=== PATIENT | male | born 1940 | race Caucasian/White ===

== ENCOUNTER 2018-01-03 13:32 | Inpatient (IN) | payer MEDICARE, SELFPAY ==
[2018-01-03] VITALS (30 sets, daily range): BP systolic 68–129; BP diastolic 51–81; PULSE 104–119; RESP 14–26; TEMP 36.2–36.9; O2SAT 63–100; BMI 22.5; BMI 23.2
--- NOTE | 2018-01-03 14:01 | RAD_ITS ---
STUDY: X-RAY CHEST REASON FOR EXAM: Male, 77 years old. Increasing shortness of breath. TECHNIQUE: Single AP portable view of the chest. COMPARISON: Comparison is made with prior study dated March 04, 2017. FINDINGS: EKG electrodes are seen. Since prior study, there has been progressive increased interstitial markings at both lung bases worse on the right side with areas of confluence. This may represent progressive interstitial fibrosis. Superimposed right lower lobe infiltrate cannot be excluded. Small right pleural effusion. The previously seen spiculated nodule in the medial aspect of the right upper lobe is not well seen at this time. Normal size heart. Normal mediastinum and renetta. Normal visualized pulmonary arteries. There is atherosclerotic calcification of the aortic arch with tortuosity. Normal visualized thoracic spine. Normal visualized ribs, clavicles, and shoulders. There is no demonstrated abnormality of the visualized soft tissue structures of the upper abdomen. RAD/Chest 1 View (Portable) IMPRESSION: Progressive increased markings at the lung bases worse on the right side with blunting of the right costophrenic angle. This may represent either progressive scarring or superimposed infiltration at the right lung base. Electronically Signed: Donnie Jeffrey MD at 14:43 EDT Tel [phone], Service support ,
--- NOTE | 2018-01-03 14:01 | EKG12_ITS ---
Test Reason : SOB Blood Pressure : / mmHG Vent. Rate : 114 BPM Atrial Rate : 114 BPM P-R Int : 130 ms QRS Dur : 088 ms QT Int : 332 ms P-R-T Axes : 000 129 -22 degrees QTc Int : 457 ms Poor data quality, interpretation may be adversely affected Sinus tachycardia Nonspecific ST and T wave abnormality Abnormal ECG Confirmed by NATALIA MCRAE, NALINI ([id number]), editor farm journal MIGUEL A FOLEY ([id number]) on 01/06/2018 2:02:40 PM Referred By: SCAR Confirmed By:NALINI FISHER MD
[2018-01-03] MEDS: MethylPREDNISolone 125 MG/2 ML Vial IV (14:13)
[2018-01-03 14:26] LABS: Absolute Lymphocyte Count 0.83 X10^3/ul (0.83-4.51); Absolute Neutrophil Count 6.2 X10^3/uL (2.0-7.7); Basophil# 0.04 X10^3/uL; Basophil% 0.5 % (0-1); Eosinophil# 0.08 X10^3/uL; Hematocrit 47.6 % (40-54); Hemoglobin 14.9 g/dl (13.0-16.5); Lymphocyte # 0.83 X10^3/ul (4.0); Lymphocyte % 10.6 % (19-41); Mean Corp Hgb Conc 31.3 g/gl (32-36); Mean Corpuscular Hgb 20.3 pg (27.0-32.0); Mean Corpuscular Volume 64.9 fL (80-94); Monocyte# 0.65 X10^3/uL; Monocyte% 8.3 % (0-10); Neutrophil # 6.22 X10^3/uL (2.7-7.7); Neutrophil % 79.5 % (47-70); Platelet Count 246 K/mm3 (150-450); RBC Distribution Width CV 21.8 % (11.6-14.6); RBC Distribution Width SD 48.3 fl (35.1-43.9); White Blood Count 7.8 K/mm3 (4.4-11.0)
[2018-01-03 14:29] LABS: Differential Indicated SCAN CRITERIA MET; POSITIVE COUNT NO; POSITIVE DIFFERENTIAL NO; POSITIVE MORPHOLOGY YES; Red Blood Count 7.33 M/mm3 (4.6-6.2)
[2018-01-03 14:37] LABS: Anion Gap 11 (5-15); BUN 41 mg/dL (7-18); BUN/Creat Ratio 27.3 RATIO (10-20); Chloride 101 mmol/L (98-107); EST Glomerular Filtration Rate 48 mL/min (>60); Est Glom Filt Rate - Afr Amer 59 mL/min (>60); Estimated Creatinine Clearance 42.86 ml/min; Glucose 105 mg/dL (74-106); Potassium 4.3 mmol/L (3.5-5.1); Sodium Level 134 mmol/L (136-145)
[2018-01-03] MEDS: Ipratropium/Albuterol Sulfate 3 ML AMPUL.NEB INHALATION ×2 (14:44→19:30)
[2018-01-03 14:45] LABS: Lactic Acid 2.7 mmol/L (0.4-2.0)
--- NOTE | 2018-01-03 14:46 | ED.RN ---
LACTIC ACID 2.[address] LAB[address] DR ABBOTT AWARE
--- NOTE | 2018-01-03 14:49 | CT_ITS ---
STUDY: CT CHEST WITHOUT CONTRAST REASON FOR EXAM: Male, 77 years old. History of lung cancer. Increasing shortness of breath. RADIATION DOSAGE (If Supplied By Facility): CTDIvol = ( 11.69 ) mGy, DLP = ( 458.64 ) mGycm TECHNIQUE: Transaxial imaging was performed without the administration of intravenous contrast material. Multiplanar coronal and sagittal images were reformatted. Individualized dose optimization techniques were used for this CT. COMPARISON: Comparison is made with prior study dated November 22, 2016. FINDINGS: Diffuse emphysematous changes worse in the right lung and in the right upper lobe with multiple bullous formation. Small right pleural effusion. Increased markings at the lung bases suggestive of bibasilar scarring and/or atelectasis. The previously seen nodular density in the posteromedial segment of the right upper lobe is not as well seen due to the presence of the pleural effusion. Air bronchograms are seen within it. This may represent a focal area of rounded atelectasis. There are calcifications of the coronary arteries. There are multiple small lymph nodes within the mediastinum, which are normal in size and morphology most compatible with reactive lymph hyperplasia. Normal hilar regions. Normal unenhanced pulmonary arteries. There is atherosclerotic calcification of the aortic arch with tortuosity and elongation of the aortic arch and descending thoracic aorta. There are multi-level degenerative changes of the thoracic spine. There is no demonstrated abnormality of the visualized upper abdomen. CT/Chest without Contrast IMPRESSION: Marked degree of emphysematous changes. Small right pleural effusion with underlying bibasilar atelectasis and/or scarring worse on the left side. Electronically Signed: Donnie Jeffrey MD at 15:45 EDT Tel [phone], Service support ,
[2018-01-03 14:56] LABS: BNP,B-Type NATRIURETIC PEPTIDE 119.8 pg/mL (0-100)
[2018-01-03 15:40] LABS: Bacteria 0 SEEN /hpf (None Seen); Mucous, Urine 0 SEEN /hpf (<or=2+); Squamous Epithelial Cells - UA 0 SEEN /hpf (0-5); White Blood Cells 0 SEEN /hpf (0-5)
[2018-01-03 15:44] LABS: Color, Urine Yellow (Yellow); Glucose, Dipstick Normal (Normal); Ketone-Dipstick Negative (Negative); Leukocyte Esterase-Dipstick Negative /ul (Negative); Nitrite-Dipstick Negative (Negative); Occult Blood-Urine 10 /ul (Negative); Protein-Dipstick 30 mg/dl (Negative); Specific Gravity, Urine 1.015 (1.002-1.030); Urine Bilirubin Dipstick Negative (Negative); Urine Clarity Clear (Clear); Urine Urobilinogen Normal (Normal)
--- NOTE | 2018-01-03 15:45 | ED.RN ---
PER PT'S NORMAL BP'S RANGE FROM SBP 60-90.
[2018-01-03 16:00] LABS: Red Blood Cells-Urine 0-5 SEEN /hpf (0-5)
[2018-01-03] MEDS: Furosemide 40 MG/4 ML Vial IV (16:16)
--- NOTE | 2018-01-03 16:50 | ED.RN ---
PER PT'S SPO2 HAS BEEN RANGING ANYWHERE FROM 60-85% ON 6L O2 AT HOME.
--- NOTE | 2018-01-03 16:52 | ED.VISSUMM ---
- ER Visit Summary Date of Service: 01/03/18 Chief Complaint: Shortness of breath History of Present Illness: The patient is a [address] Sameer Couch III, Dr. 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 When asked that this worsens he reports that he is here today because his ankle swelling is worsened. He is on 20 mg of Lasix a day. There has been no change in his. He denies any fever, chills, chest pain, cough, or other complaints. Physical Examination: Vitals: 97.2, 129/80, 115, 26, 63% on 6 L nasal cannula which is his home O2, 83% on a nonrebreather, and 93% on BiPAP. General: Well-nourished and well-developed. Head: Normocephalic atraumatic. Neck: Supple, no lymphadenopathy. No JVD. Nontender. Cardiovascular: Tachycardic regular rhythm. No murmurs. Respiratory: Moderate respiratory distress. Clear to auscultation bilaterally. Abdominal: Soft, nontender, nondistended, normal bowel sounds. No guarding, rebound, or peritoneal signs. Back: Nontender. Extremities: Nontender, 2+ pitting edema of his lower extremities bilaterally. Skin: Normal color, no rash. Neurologic: Alert and oriented ?3. Cranial nerves II through XII are intact. Normal strength and sensation. Psych: Normal affect. Test Results: EKG is sinus tach at 114 with artifact and nonspecific changes. Troponin 0 0.25. UA is more for blood. Chem-7 is more for sodium 134, BUN 41, creatinine 1.5. Lactic acid is 2.7. CBC is more for 7 neutrophils 80 leukocytes of 11. Chest x-ray shows increased interstitial markings in the lung bases right greater than left with areas of confluence. Question interstitial fibrosis, but not able to rule out infiltrate. Because of the CT the chest without contrast was obtained. This shows a small right pleural effusion with bibasilar atelectasis/scarring left greater than right. Emergency Department Course and Treatment: Patient was placed on BiPAP and his pulse ox increased into the low 90s. He was given albuterol and Atrovent aerosols despite his clear lungs as he does has a history of COPD. Is given a dose of Solu-Medrol and Lasix IV. I specifically discussed the patient his wishes concerning intubation. He does not want this performed. It is documented in February 2017 that is DNR Comfort Care arrest and this is consistent with the patient's wishes now. I do not feel the patient is septic and I think that his elevated lactic acid is likely from his hypoxia. I did not give him his IV fluids as I think this would actually worsen his outcome. I also feel that his indeterminate troponin is likely demand ischemia from his hypoxia rather than indicative of coronary artery disease. Treatment Plan: Patient was discussed with Dr. Cameron as well as Dr. Morales. He will be admitted to the hospital for further evaluation and treatment. Disposition: Admitted in critical condition Impression: 1. Acute on chronic respiratory failure. 2. Severe pulmonary hypertension. 3. COPD. 4. DNR Comfort Care arrest. 5. Indeterminate troponin. 6. Critical care time 30 minutes. This note was generated with [employer] dictation software. It may contain incorrect words, spelling, and punctuation that were not noted in review of the chart prior to signing ED Disposition - Plan for ED Patient: Chief Complaint: Shortness of Breath Referrals: Sameer Couch III, MD [Primary Care Provider] -
--- NOTE | 2018-01-03 16:57 | ED.DCSUM_ITS ---
- ER Visit Summary Date of Service: 01/03/18 Chief Complaint: Shortness of breath History of Present Illness: The patient is a [address] Sameer Couch III, Dr. 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 When asked that this worsens he reports that he is here today because his ankle swelling is worsened. He is on 20 mg of Lasix a day. There has been no change in his. He denies any fever, chills, chest pain, cough, or other complaints. Physical Examination: Vitals: 97.2, 129/80, 115, 26, 63% on 6 L nasal cannula which is his home O2, 83 % on a nonrebreather, and 93% on BiPAP. General: Well-nourished and well-developed. Head: Normocephalic atraumatic. Neck: Supple, no lymphadenopathy. No JVD. Nontender. Cardiovascular: Tachycardic regular rhythm. No murmurs. Respiratory: Moderate respiratory distress. Clear to auscultation bilaterally. Abdominal: Soft, nontender, nondistended, normal bowel sounds. No guarding, rebound, or peritoneal signs. Back: Nontender. Extremities: Nontender, 2+ pitting edema of his lower extremities bilaterally. Skin: Normal color, no rash. Neurologic: Alert and oriented ?3. Cranial nerves II through XII are intact. Normal strength and sensation. Psych: Normal affect. Test Results: EKG is sinus tach at 114 with artifact and nonspecific changes. Troponin 0 0.25. UA is more for blood. Chem-7 is more for sodium 134, BUN 41, creatinine 1.5. Lactic acid is 2.7. CBC is more for 7 neutrophils 80 leukocytes of 11. Chest x-ray shows increased interstitial markings in the lung bases right greater than left with areas of confluence. Question interstitial fibrosis, but not able to rule out infiltrate. Because of the CT the chest without contrast was obtained. This shows a small right pleural effusion with bibasilar atelectasis/scarring left greater than right. Emergency Department Course and Treatment: Patient was placed on BiPAP and his pulse ox increased into the low 90s. He was given albuterol and Atrovent aerosols despite his clear lungs as he does has a history of COPD. Is given a dose of Solu-Medrol and Lasix IV. I specifically discussed the patient his wishes concerning intubation. He does not want this performed. It is documented in February 2017 that is DNR Comfort Care arrest and this is consistent with the patient's wishes now. I do not feel the patient is septic and I think that his elevated lactic acid is likely from his hypoxia. I did not give him his IV fluids as I think this would actually worsen his outcome. I also feel that his indeterminate troponin is likely demand ischemia from his hypoxia rather than indicative of coronary artery disease. Treatment Plan: Patient was discussed with Dr. Cameron as well as Dr. Morales. He will be admitted to the hospital for further evaluation and treatment. Disposition: Admitted in critical condition Impression: 1. Acute on chronic respiratory failure. 2. Severe pulmonary hypertension. 3. COPD. 4. DNR Comfort Care arrest. 5. Indeterminate troponin. 6. Critical care time 30 minutes. This note was generated with [employer] dictation software. It may contain incorrect words, spelling, and punctuation that were not noted in review of the chart prior to signing ED Disposition - Plan for ED Patient: Chief Complaint: Shortness of Breath Referrals: Sameer Couch III, MD [Primary Care Provider] -
--- NOTE | 2018-01-03 17:04 | PCM.HP.STD ---
History of Present Illness Date of Admission: 01/03/18 Chief Complaint: Shortness of breath The patient is a 77 year old M advanced COPD, chronic respiratory failure on home oxygen at 6 L/min, pulmonary hypertension and chronic cor pulmonale resented to the emergency room due to progressive leg edema and shortness of breath. In the emergency room he was noted to have pulse oximetry in the 80s 6 L of oxygen, he was placed on BiPAP and given IV Lasix but he became hypotensive with systolic blood pressure in the 90s. Chest x-ray done in the emergency room showed marked degree of emphysematous changes. Small right pleural effusion with underlying bibasilar atelectasis with no evidence of pneumonia. He denies any fever, chills, chest pain, cough nausea vomiting or abdominal pain. We are admitting him to the hospital for further management. Past Medical History Past Medical History (Chronic Problems): Chronic Problems (Last Reviewed 10/18/17 @ 10:07 by Yamilet Reyes) Respiratory failure (Chronic) Currently requiring 6 L of supplemental oxygen at all times, on a noninvasive ventilator for sleep Stage 1 mild COPD by GOLD classification (Chronic) FEV1 91% of predicted Depression (Chronic) Diabetes (Chronic) Lung cancer (Chronic) Pulmonary hypertension (Chronic) PASP greater than 90 mmHg Diastolic heart failure (Chronic) Sleep-related breathing disorder (Chronic) Solitary lung nodule (Chronic) Right ventricular diastolic dysfunction (Chronic) Patent foramen ovale (Chronic) PND (paroxysmal nocturnal dyspnea) (Chronic) Moderate to severe pulmonary hypertension (Chronic) Colon cancer (Chronic) COPD (chronic obstructive pulmonary disease) (Chronic) Hypertension (Chronic) Allergies No Known Allergies Allergy (Verified 10/18/17 10:07) Home Medications: Ambulatory Orders Medication Instructions Recorded Albuterol IH (ProAir) [Proair Hfa] 1 - 2 puff INHALATION Q4H PRN PRN 03/04/17 Budesonide/Formoterol Fumarate 2 puff IH BID 03/04/17 [Symbicort 160-4.5 Mcg Inhaler] Calcium Carbonate/Vitamin D3 1 ea PO DAILY 03/04/17 [Calcium 600-Vit D3 800 Tab] Cinnamon Bark [Cinnamon] 500 mg PO BID 03/04/17 Furosemide [Lasix] 20 mg PO DAILY 03/04/17 Ipratropium/Albuterol Sulfate 3 ml INHALATION Q6HWA.RT 03/04/17 [Duoneb] Lisinopril [Zestril] 5 mg PO DAILY 03/04/17 Multivit-Min/FA/Lycopen/Lutein 1 ea PO DAILY 03/04/17 [Centrum Silver Men Tablet] Mv-Min/FA/Vit K/Lycop/Lut/Zeax 1 ea PO DAILY 03/04/17 [Ocuvite Eye Plus Multi Tablet] Omeprazole [Prilosec] 40 mg PO DAILY 03/04/17 Sertraline HCl [Zoloft] 50 mg PO DAILY 03/04/17 Simvastatin [Zocor] 40 mg PO QHS 03/04/17 Sodium Chloride 0.65% [[place] Nasal 2 spray NASAL BID PRN PRN #0 03/07/17 [place]] spray.btl albuterol sulfate 2.5 mg/3 mL 2.5 mg INHALATION Q4H PRN #180 ml 09/28/17 (0.083 %) solution for nebulization macitentan 10 mg tablet 10 mg PO QHS 10/18/17 Aspirin [Aspirin, Baby] 81 mg PO DAILY@0800 01/03/18 Fluticasone 0.05% [Flonase Nasal 2 spray INTRANASAL DAILY 01/03/18 [place]] Guaifenesin [Mucinex] 1,200 mg PO BID PRN PRN 01/03/18 Lorazepam [Ativan] 0.5 mg PO DAILY 01/03/18 Melatonin/Pyridoxine HCl (B6) 1 each PO QHS 01/03/18 [Melatonin 10 mg Tablet] Mirtazapine [Mirtazapine] 7.5 mg PO QHS 01/03/18 Tadalafil [Adcirca] 40 mg PO DAILY 01/03/18 Tiotropium Babb [Spiriva] 1 cap INHALATION DAILY 01/03/18 Surgical History: colectomy Smoking Status: Former smoker - *Family History Paternal History Items: Hypertension Review of Systems Constitutional: Reports: Anorexia, Chills HEENT: Reports: Difficulty Hearing Cardiovascular: Reports: Chest Pain Respiratory: Reports: Cough Comment: All Systems were reviewed with pertinent positives mentioned in the HPI above. VTE Information - Inpt Only VTE Present on Admission: No VTE Mechan Device Prophylaxis: SCD's VTE Pharm Prophylaxis ordered?: Yes - Physical Exam General: Alert, Oriented x3 HEENT: Atraumatic Neck: Supple, No JVD Lungs: Rhonchi, Tachypneic, Wheezes Cardiovascular: Regular rate, Normal S1, Normal S2 Abdomen: Bowel Sounds Present, Soft, Non Tender Extremities: No edema Skin: No rashes Neurological: Cranial nerves II-XII grossly intact, Motor Exam 5/5 strength throughout Vital Signs Temp Pulse Resp BP Pulse Ox 97.2 F L 116 H 20 H 91/73 94 01/03/18 13:33 01/03/18 16:50 01/03/18 16:50 01/03/18 16:50 01/03/18 16:50 Oxygen Flow Rate (L/min) 15 Oxygen Delivery Method Bi-pap Weight: 71.214 kg Body Mass Index (BMI) 22.5 Finger Stick Blood Glucose 181 Laboratory Tests Past 24 Hrs 01/03/18 01/03/18 01/03/18 14:08 14:08 14:08 WBC 7.8 RBC 7.33 H Hgb 14.9 Hct 47.6 MCV 64.9 L MCH 20.3 L MCHC 31.3 L RDW 21.8 H RDW Differential 48.3 H Plt Count 246 Immature Gran % (Auto) 0.100 Neut % (Auto) 79.5 H Lymph % (Auto) 10.6 L [place] % (Auto) 8.3 Eos % (Auto) 1.0 Baso % (Auto) 0.5 Absolute Neuts (auto) 6.2 Absolute Lymphs (auto) 0.83 Total Counted Not Reportable Differential Comment COMMENT Sodium 134 L Potassium 4.3 Chloride 101 Carbon Dioxide 22.0 Anion Gap 11 BUN 41 H Creatinine 1.50 H Estim Creat Clear Calc 42.86 Est GFR (MDRD) Af Amer 59 L Est GFR (MDRD) Non-Af 48 L BUN/Creatinine Ratio 27.3 H Glucose 105 Lactic Acid Calcium 9.0 Troponin I 0.25 H B-Natriuretic Peptide 119.8 H Urine Color Urine Clarity Urine pH Ur Specific [place] Urine Protein Urine Glucose (UA) Urine Ketones Urine Occult Blood Urine Nitrite Urine Bilirubin Urine Urobilinogen Ur Leukocyte Esterase Urine RBC Urine WBC Ur Squamous Epith Cells Urine Bacteria Urine Mucus 01/03/18 01/03/18 14:08 15:34 WBC RBC Hgb Hct MCV MCH MCHC RDW RDW Differential Plt Count Immature Gran % (Auto) Neut % (Auto) Lymph % (Auto) [place] % (Auto) Eos % (Auto) Baso % (Auto) Absolute Neuts (auto) Absolute Lymphs (auto) Total Counted Differential Comment Sodium Potassium Chloride Carbon Dioxide Anion Gap BUN Creatinine Estim Creat Clear Calc Est GFR (MDRD) Af Amer Est GFR (MDRD) Non-Af BUN/Creatinine Ratio Glucose Lactic Acid 2.7 H Calcium Troponin I B-Natriuretic Peptide Urine Color Yellow Urine Clarity Clear Urine pH 5.0 Ur Specific [place] 1.015 Urine Protein 30 H Urine Glucose (UA) Normal Urine Ketones Negative Urine Occult Blood 10 H Urine Nitrite Negative Urine Bilirubin Negative Urine Urobilinogen Normal Ur Leukocyte Esterase Negative Urine RBC 0-5 SEEN Urine WBC 0 SEEN Ur Squamous Epith Cells 0 SEEN Urine Bacteria 0 SEEN Urine Mucus 0 SEEN Assessment/Plan 1. Acute on chronic respiratory failure with hypoxia ; we will continue on BiPAP, he is a DNR CCA with no intubation. We will consult with his salt lifter . 2. Acute right-sided heart failure superimposed on chronic cor pulmonale; we will give him a dose of albumin and back off on Lasix due to his hypotension 3. Acute Exacerbation of COPD; we will continue on bronchodilators and place him on IV steroids. 4. Severe debility; supportive measures 5. diabetes type 2; we will place him on regular insulin sliding scale. 6. DVT prophylaxis with Lovenox Code Visit Inpatient E&M: [id number] Init Hosp L3
[2018-01-03 18:13] LABS: Reflex Lactate? Y
[2018-01-03 19:11] LABS: Lactic Acid 1.4 mmol/L (0.4-2.0)
[2018-01-03 19:17] LABS: M R Staph aureus DNA By PCR Negative (Negative); Probe Check PASS; Specimen Processing Control PASS
[2018-01-03] MEDS: Budesonide Respules 0.5 MG/2 ML AMPUL.NEB. INHALATION (19:30)
[2018-01-03 20:16] LABS: Allen Test POS; Base Excess -7 mmol/L (-2 to +2); Bicarbonate 17.6 mmol/L (22-26); Blood Gas Specimen Type ART; EPAP 8; FI02 60; IPAP 16; PO2 80 mmHG (75-100); RR 12; SITE L Radial; SO2 96 % (95-99); Total Carbon Dioxide 18 mmol/L; pH 7.41 (7.35-7.45)
[2018-01-03] MEDS: Atorvastatin Calcium 20 MG Tablet PO (21:14)
[2018-01-03] MEDS: MELATONIN 10 MG TABLET PO (21:14)
[2018-01-03] MEDS: Mirtazapine 15 MG Tablet 7.5 MG PO (21:15)
[2018-01-03] MEDS: 0.9% NaCl Peripheral Flush Adult/Peds IV (21:34)
[2018-01-03 22:50] LABS: Bedside Glucose 171 mg/dL (70-110)
[2018-01-04] VITALS (37 sets, daily range): BP systolic 68–117; BP diastolic 42–80; PULSE 24–121; RESP 13–27; TEMP 36.1–37.2; O2SAT 86–97
--- NOTE | 2018-01-04 04:32 | CPS ---
decreased o2 to 50%-nurse aware
[2018-01-04 06:19] LABS: Absolute Lymphocyte Count 0.72 X10^3/ul (0.83-4.51); Absolute Neutrophil Count 4.2 X10^3/uL (2.0-7.7); Basophil# 0.02 X10^3/uL; Basophil% 0.4 % (0-1); Differential Indicated SCAN CRITERIA MET; Hematocrit 40.4 % (40-54); Hemoglobin 13.2 g/dl (13.0-16.5); Lymphocyte # 0.72 X10^3/ul (4.0); Lymphocyte % 12.8 % (19-41); Mean Corp Hgb Conc 32.7 g/gl (32-36); Mean Corpuscular Hgb 20.3 pg (27.0-32.0); Mean Corpuscular Volume 62.1 fL (80-94); Mean Platelet Vol. 9.1 fl (6.2-12.0); Monocyte# 0.74 X10^3/uL; Monocyte% 13.1 % (0-10); Neutrophil # 4.15 X10^3/uL (2.7-7.7); Neutrophil % 73.5 % (47-70); POSITIVE COUNT NO; POSITIVE DIFFERENTIAL NO; POSITIVE MORPHOLOGY YES; Platelet Count 243 K/mm3 (150-450); RBC Distribution Width CV 22.6 % (11.6-14.6); RBC Distribution Width SD 48.2 fl (35.1-43.9); Red Blood Count 6.51 M/mm3 (4.6-6.2); White Blood Count 5.6 K/mm3 (4.4-11.0)
[2018-01-04 06:24] LABS: Anion Gap 10 (5-15); BUN 37 mg/dL (7-18); BUN/Creat Ratio 30.3 RATIO (10-20); Calcium,Total 8.1 mg/dL (8.5-10.1); Chloride 107 mmol/L (98-107); Creatinine, Serum 1.22 mg/dL (0.70-1.30); EST Glomerular Filtration Rate 61 mL/min (>60); Est Glom Filt Rate - Afr Amer 74 mL/min (>60); Estimated Creatinine Clearance 54.02 ml/min; Glucose 119 mg/dL (74-106); Potassium 4.7 mmol/L (3.5-5.1); Sodium Level 138 mmol/L (136-145)
[2018-01-04 06:29] LABS: Magnesium 2.2 mg/dL (1.6-2.6); Phosphorus 4.6 mg/dL (2.5-4.9)
[2018-01-04] MEDS: 0.9% NaCl Peripheral Flush Adult/Peds IV ×5 (06:29→23:00)
[2018-01-04 06:51] LABS: Anisocytosis 1+; Differential Comment SCAN; Macrocytosis 1+; Platelet Morphology LARGE; Polychromasia 1+
[2018-01-04 06:52] LABS: Platelet Estimate ADEQUATE (ADEQ)
--- NOTE | 2018-01-04 06:59 | PCM.CON.CC ---
Problem List (1) Respiratory failure Status: Chronic Qualifiers: Chronicity: chronic Respiratory failure complication: hypoxia Qualified Code(s): J96.11 - Chronic respiratory failure with hypoxia; J96.11 - Chronic respiratory failure with hypoxia; J96.11 - Chronic respiratory failure with hypoxia Comment: Currently requiring 6 L of supplemental oxygen at all times, on a noninvasive ventilator for sleep (2) History of colon surgery Status: Resolved (3) History of tonsillectomy Status: Resolved (4) History of cholecystectomy Status: Resolved (5) Depression Status: Chronic Qualifiers: Depression Type: unspecified Qualified Code(s): F32.9 - Major depressive disorder, single episode, unspecified; F32.9 - Major depressive disorder, single episode, unspecified; F32.9 - Major depressive disorder, single episode, unspecified (6) Diabetes Status: Chronic Qualifiers: Diabetes mellitus type: type 2 Diabetes mellitus senior care insulin use: without termite control service representative use Diabetes mellitus complication status: with circulatory complication Diabetes mellitus complication detail: with peripheral angiopathy without gangrene Qualified Code(s): E11.51 - Type 2 diabetes mellitus with diabetic peripheral angiopathy without gangrene (7) Diastolic heart failure Status: Chronic Qualifiers: Heart failure chronicity: acute on chronic Qualified Code(s): I50.33 - Acute on chronic diastolic (congestive) heart failure (8) Sleep-related breathing disorder Status: Chronic (9) Patent foramen ovale Status: Chronic (10) PND (paroxysmal nocturnal dyspnea) Status: Chronic (11) Moderate to severe pulmonary hypertension Status: Chronic (12) Acute exacerbation of chronic obstructive pulmonary disease (COPD) Status: Acute (13) Acute hypoxemic respiratory failure Status: Acute (14) COPD (chronic obstructive pulmonary disease) Status: Chronic Qualifiers: COPD type: emphysema Emphysema type: centrilobular Qualified Code(s): J43.2 - Centrilobular emphysema (15) Hypertension Status: Chronic Qualifiers: Hypertension type: essential hypertension Qualified Code(s): I10 - Essential (primary) hypertension Reason for Consult Date of Consultation: 01/04/18 Reason for Consultation: Acute hypoxic respiratory failure History of Present Illness: The patient is a 77 year old M, with past medical history listed below and well-known to our practice, who presented to [facility] on 01/03[facility]2018 secondary to progressive lower extremity edema and shortness of breath. On presentation to the emergency room, patient was noted to have a pulse oximetry in the low 80s on baseline 6 L nasal cannula oxygen. Patient was placed on BiPAP therapy and given Lasix, but then became hypotensive. A chest x-ray and CT scan were performed showing a right lower lobe infiltrate with effusion. Patient reported no fever, chills, nausea, vomiting or abdominal pain. Patient was admitted to the intensive care unit given marginal blood pressures and hypoxemia. Since admission to the intensive care unit, patient reports subjective improvement in overall condition. Patient's blood pressure has been marginal, but mentation has been at baseline. Patient did receive a fluid bolus of 500 cc overnight. Patient denies any recent dietary indiscretions, missing of medications or noncompliance with supplemental oxygen. Patient has noted increased lower extremity edema. Patient denies any significant cough or change in sputum recently. Patient did have an indeterminate troponin, but denies any chest pain at this time. Patient reports that he stays home for most of the winter to avoid illness. Patient does report that he recently had a of a close friend and did go to a , but is unclear if the had any sick contacts during this event. Review of systems otherwise negative ?10 systems. Past Medical History Past Medical History (Chronic Problems): Chronic Problems (Last Reviewed 10/18/17 @ 10:07 by Yamilet Reyes) Respiratory failure (Chronic) Currently requiring 6 L of supplemental oxygen at all times, on a noninvasive ventilator for sleep Stage 1 mild COPD by GOLD classification (Chronic) FEV1 91% of predicted Depression (Chronic) Diabetes (Chronic) Lung cancer (Chronic) Pulmonary hypertension (Chronic) PASP greater than 90 mmHg Diastolic heart failure (Chronic) Sleep-related breathing disorder (Chronic) Solitary lung nodule (Chronic) Right ventricular diastolic dysfunction (Chronic) Patent foramen ovale (Chronic) PND (paroxysmal nocturnal dyspnea) (Chronic) Moderate to severe pulmonary hypertension (Chronic) Colon cancer (Chronic) COPD (chronic obstructive pulmonary disease) (Chronic) Hypertension (Chronic) Allergies No Known Allergies Allergy (Verified 10/18/17 10:07) Home Medications: Ambulatory Orders Medication Instructions Recorded Albuterol IH (ProAir) [Proair Hfa] 1 - 2 puff INHALATION Q4H PRN PRN 03/04/17 Budesonide/Formoterol Fumarate 2 puff IH BID 03/04/17 [Symbicort 160-4.5 Mcg Inhaler] Calcium Carbonate/Vitamin D3 1 ea PO DAILY 03/04/17 [Calcium 600-Vit D3 800 Tab] Cinnamon Bark [Cinnamon] 500 mg PO BID 03/04/17 Furosemide [Lasix] 20 mg PO DAILY 03/04/17 Ipratropium/Albuterol Sulfate 3 ml INHALATION Q6HWA.RT 03/04/17 [Duoneb] Lisinopril [Zestril] 5 mg PO DAILY 03/04/17 Multivit-Min/FA/Lycopen/Lutein 1 ea PO DAILY 03/04/17 [Centrum Silver Men Tablet] Mv-Min/FA/Vit K/Lycop/Lut/Zeax 1 ea PO DAILY 03/04/17 [Ocuvite Eye Plus Multi Tablet] Omeprazole [Prilosec] 40 mg PO DAILY 03/04/17 Sertraline HCl [Zoloft] 50 mg PO DAILY 03/04/17 Simvastatin [Zocor] 40 mg PO QHS 03/04/17 Sodium Chloride 0.65% [[place] Nasal 2 spray NASAL BID PRN PRN #0 03/07/17 [place]] spray.btl albuterol sulfate 2.5 mg/3 mL 2.5 mg INHALATION Q4H PRN #180 ml 09/28/17 (0.083 %) solution for nebulization macitentan 10 mg tablet 10 mg PO QHS 10/18/17 Aspirin [Aspirin, Baby] 81 mg PO DAILY@0800 01/03/18 Fluticasone 0.05% [Flonase Nasal 2 spray INTRANASAL DAILY 01/03/18 [place]] Guaifenesin [Mucinex] 1,200 mg PO BID PRN PRN 01/03/18 Lorazepam [Ativan] 0.5 mg PO DAILY 01/03/18 Melatonin/Pyridoxine HCl (B6) 1 each PO QHS 01/03/18 [Melatonin 10 mg Tablet] Mirtazapine [Mirtazapine] 7.5 mg PO QHS 01/03/18 Tadalafil [Adcirca] 40 mg PO DAILY 01/03/18 Tiotropium [place] [Spiriva] 1 cap INHALATION DAILY 01/03/18 Surgical History: colectomy Smoking Status: Former smoker - *Family History Paternal History Items: Hypertension Review of Systems Comment: See HPI Objective: CT scan of the chest and chest x-ray were personally reviewed. Advanced emphysematous changes are noted bilaterally. Patient does have some area of confluence in the lower lobes, right greater than left with a mild effusion on the right. - Physical Exam General: Alert, Oriented x3, Cooperative, - - Mild to moderate conversational dyspnea noted. Appears older than stated age. HEENT: Atraumatic, PERRLA, EOMI, Normocephalic, - - Slight scleral injection without icterus Oral: Moist Mucosa, No Gingival or Mucosal Lesions/ Ulcerations Neck: Supple, No Nodes, Trachea Midline, JVD, Right Lungs: No rhonchi, No rales, Diminished, Wheezes, - - Symmetric expansion. Increased AP diameter. Cardiovascular: Normal S1, Normal S2, Murmur - Grade 3 out of 6 systolic ejection murmur at the left lower sternal border, No rub noted, No Gallop Abdomen: Bowel Sounds Present, Soft, Non Tender, Non-Distended Extremities: No cyanosis, Clubbing, Diminished Peripheral Pulses, Edema Skin: No rashes, No breakdown Musculoskeletal: No Tenderness to Palpation of Joints or Extremities Lymphatic: No Cervical, Supraclavicular, or Inguinal Adenopathy Neurological: Cranial nerves II-XII grossly intact, Neuro grossly intact, Motor Exam 5/5 strength throughout Psych/Mental Status: Alert and oriented to time, place, person, mood and affect Vital Signs Temp Pulse Resp BP Pulse Ox 36.2 C L 24 L 23 H 93/78 95 01/04/18 06:00 01/04/18 06:00 01/04/18 06:00 01/04/18 06:00 01/04/18 06:00 Oxygen Delivery Method Bi-pap Weight: 73.9 kg Body Mass Index (BMI) 23.2 Intake and Output for Last 24 Hours 01/02/18 01/03/18 01/04/18 23:59 23:59 23:59 Intake Total 305 / 305 553 / 553 Output Total 1650 / 1650 200 / 200 Balance -1345 / -1345 353 / 353 Laboratory Tests Past 24 Hrs 01/03/18 01/03/18 01/03/18 17:30 18:15 18:30 WBC RBC Hgb Hct MCV MCH MCHC RDW RDW Differential Plt Count MPV Immature Gran % (Auto) Neut % (Auto) Lymph % (Auto) [place] % (Auto) Eos % (Auto) Baso % (Auto) Absolute Neuts (auto) Absolute Lymphs (auto) Total Counted Differential Comment Platelet Estimate Plt Morphology Comment Polychromasia Anisocytosis Macrocytosis Specimen Type Sample Site pH Bicarbonate Actual POC Total CO2 Base Excess O2 Saturation O2 % ABG pCO2 ABG pO2 Deshawn Test Respiration Rate O2 Delivery Device EPAP IPAP Blood Gas Notified Whom Sodium Potassium Chloride Carbon Dioxide Anion Gap BUN Creatinine Estim Creat Clear Calc Est GFR (MDRD) Af Amer Est GFR (MDRD) Non-Af BUN/Creatinine Ratio Glucose Lactic Acid 1.4 Calcium Phosphorus Magnesium Troponin I 0.21 H MRSA (PCR) Negative 01/03/18 01/03/18 01/04/18 20:10 21:30 05:30 WBC 5.6 RBC 6.51 H Hgb 13.2 Hct 40.4 MCV 62.1 L MCH 20.3 L MCHC 32.7 RDW 22.6 H RDW Differential 48.2 H Plt Count 243 MPV 9.1 Immature Gran % (Auto) 0.200 Neut % (Auto) 73.5 H Lymph % (Auto) 12.8 L [place] % (Auto) 13.1 H Eos % (Auto) 0.0 Baso % (Auto) 0.4 Absolute Neuts (auto) 4.2 Absolute Lymphs (auto) 0.72 L Total Counted Not Reportable Differential Comment SCAN Platelet Estimate ADEQUATE Plt Morphology Comment LARGE Polychromasia 1+ Anisocytosis 1+ Macrocytosis 1+ Specimen Type ART Sample Site L Radial pH 7.41 Bicarbonate Actual 17.6 L POC Total CO2 18 Base Excess -7 L O2 Saturation 96 O2 % 60 ABG pCO2 28.0 L ABG pO2 80 Deshawn Test POS Respiration Rate 12 O2 Delivery Device Bi / C PAP EPAP 8 IPAP 16 Blood Gas Notified Whom ICU MD Sodium Potassium Chloride Carbon Dioxide Anion Gap BUN Creatinine Estim Creat Clear Calc Est GFR (MDRD) Af Amer Est GFR (MDRD) Non-Af BUN/Creatinine Ratio Glucose Lactic Acid Calcium Phosphorus Magnesium Troponin I 0.18 H MRSA (PCR) 01/04/18 01/04/18 01/04/18 05:30 05:30 05:30 WBC RBC Hgb Hct MCV MCH MCHC RDW RDW Differential Plt Count MPV Immature Gran % (Auto) Neut % (Auto) Lymph % (Auto) [place] % (Auto) Eos % (Auto) Baso % (Auto) Absolute Neuts (auto) Absolute Lymphs (auto) Total Counted Differential Comment Platelet Estimate Plt Morphology Comment Polychromasia Anisocytosis Macrocytosis Specimen Type Sample Site pH Bicarbonate Actual POC Total CO2 Base Excess O2 Saturation O2 % ABG pCO2 ABG pO2 Deshawn Test Respiration Rate O2 Delivery Device EPAP IPAP Blood Gas Notified Whom Sodium 138 Potassium 4.7 Chloride 107 Carbon Dioxide 21.0 Anion Gap 10 BUN 37 H Creatinine 1.22 Estim Creat Clear Calc 54.02 Est GFR (MDRD) Af Amer 74 Est GFR (MDRD) Non-Af 61 BUN/Creatinine Ratio 30.3 H Glucose 119 H Lactic Acid Calcium 8.1 L Phosphorus 4.6 Magnesium 2.2 Troponin I 0.16 H MRSA (PCR) POC Glucose 01/03/18 21:43 POC Glucose 171 H Clinical Impression(s) from Imaging Studies Chest X-Ray 01/03/18 14:01 IMPRESSION: Progressive increased markings at the lung bases worse on the right side with blunting of the right costophrenic angle. This may represent either progressive scarring or superimposed infiltration at the right lung base. Electronically Signed: Donnie Jeffrey MD at 14:43 EDT Tel [phone], Service support , Chest CT 01/03/18 14:49 IMPRESSION: Marked degree of emphysematous changes. Small right pleural effusion with underlying bibasilar atelectasis and/or scarring worse on the left side. Electronically Signed: Donnie Jeffrey MD at 15:45 EDT Tel [phone], Service support , Assessment/Plan RECOMMENDATIONS: 1. Supplemental oxygen to keep saturations 88% or greater 2. BiPAP breaks as tolerated 3. Cautious diuresis with intermittent Lasix 4. Initiate systemic steroids 5. Continue home pulmonary hypertension medications 6. Aggressive rate control IMPRESSIONS: 1. Acute on chronic hypoxic respiratory failure Exact etiology is unclear at this time. Differential diagnosis would include acute COPD exacerbation, acute on chronic diastolic congestive heart failure, cor pulmonale secondary to hypoxemia, pneumonia and acute viral infection. Patient's saturations appear to be improving. Patient is hypotensive, but this is likely secondary to decreased cardiac output from elevated pulmonary artery pressures. Patient should continue on baseline pulmonary hypertension medications. Will attempt to control heart rate. Patient will be placed on IV steroids, but clinical suspicion for bronchospasm is relatively low. However, patient has marginal pulmonary reserve at this time. 2. Known COPD and pulmonary hypertension Patient has been seen by pulmonary hypertension specialist at [facility]. Patient should continue with baseline medications for pulmonary hypertension. Will attempt diuresis using intermittent Lasix given marginal blood pressures. Currently on aerosols. No Pulmicort secondary to systemic steroids. 3. Cor pulmonale secondary to severe pulmonary hypertension Cautious use of supplemental IV fluids. Elevated BNP and marginal troponin likely secondary to right heart strain, not left heart strain. Would not recommend significant peripheral IV fluids if possible. 4. Allergic rhinitis/postnasal drip syndrome Continue Flonase 2 sprays in each nostril daily. 5. Severe debility/hyperlipidemia/GERD/diabetes Complicates care, management, recovery and prognosis. Patient on sliding scale insulin coverage. 6. Lung nodule Patient does have a history of cancer in the past. He is aware of the lung nodule, but given comorbid factors, biopsy is likely not appropriate and can lead to significant complications. Current perception is that the risk is greater than benefit in patients morbidity and mortality is more closely linked to his severe pulmonary hypertension and emphysema. 7. CODE STATUS: DNR CCA without intubation TIME: 37 minutes critical care time spent addressing patient's acute on chronic hypoxic respiratory failure, cor pulmonale, elevated troponin, review of all data and collaboration with care team Code Visit [id number]: [id number] Critical care first hour
[2018-01-04] MEDS: Ipratropium/Albuterol Sulfate 3 ML AMPUL.NEB INHALATION ×3 (07:09→19:55)
--- NOTE | 2018-01-04 07:16 | CON.PCM_ITS ---
Problem List (1) Respiratory failure Status: Chronic Qualifiers: Chronicity: chronic Respiratory failure complication: hypoxia Qualified Code(s): J96.11 - Chronic respiratory failure with hypoxia; J96.11 - Chronic respiratory failure with hypoxia; J96.11 - Chronic respiratory failure with hypoxia Comment: Currently requiring 6 L of supplemental oxygen at all times, on a noninvasive ventilator for sleep (2) History of colon surgery Status: Resolved (3) History of tonsillectomy Status: Resolved (4) History of cholecystectomy Status: Resolved (5) Depression Status: Chronic Qualifiers: Depression Type: unspecified Qualified Code(s): F32.9 - Major depressive disorder, single episode, unspecified; F32.9 - Major depressive disorder, single episode, unspecified; F32.9 - Major depressive disorder, single episode, unspecified (6) Diabetes Status: Chronic Qualifiers: Diabetes mellitus type: type 2 Diabetes mellitus halfway insulin use: without terminal carman use Diabetes mellitus complication status: with circulatory complication Diabetes mellitus complication detail: with peripheral angiopathy without gangrene Qualified Code(s): E11.51 - Type 2 diabetes mellitus with diabetic peripheral angiopathy without gangrene (7) Diastolic heart failure Status: Chronic Qualifiers: Heart failure chronicity: acute on chronic Qualified Code(s): I50.33 - Acute on chronic diastolic (congestive) heart failure (8) Sleep-related breathing disorder Status: Chronic (9) Patent foramen ovale Status: Chronic (10) PND (paroxysmal nocturnal dyspnea) Status: Chronic (11) Moderate to severe pulmonary hypertension Status: Chronic (12) Acute exacerbation of chronic obstructive pulmonary disease (COPD) Status: Acute (13) Acute hypoxemic respiratory failure Status: Acute (14) COPD (chronic obstructive pulmonary disease) Status: Chronic Qualifiers: COPD type: emphysema Emphysema type: centrilobular Qualified Code(s): J43.2 - Centrilobular emphysema (15) Hypertension Status: Chronic Qualifiers: Hypertension type: essential hypertension Qualified Code(s): I10 - Essential (primary) hypertension Reason for Consult Date of Consultation: 01/04/18 Reason for Consultation: Acute hypoxic respiratory failure History of Present Illness: The patient is a 77 year old M, with past medical history listed below and well- known to our practice, who presented to [facility] on 01/03/2018 secondary to progressive lower extremity edema and shortness of breath. On presentation to the emergency room, patient was noted to have a pulse oximetry in the low 80s on baseline 6 L nasal cannula oxygen. Patient was placed on BiPAP therapy and given Lasix, but then became hypotensive. A chest x-ray and CT scan were performed showing a right lower lobe infiltrate with effusion. Patient reported no fever, chills, nausea, vomiting or abdominal pain. Patient was admitted to the intensive care unit given marginal blood pressures and hypoxemia. Since admission to the intensive care unit, patient reports subjective improvement in overall condition. Patient's blood pressure has been marginal, but mentation has been at baseline. Patient did receive a fluid bolus of 500 cc overnight. Patient denies any recent dietary indiscretions, missing of medications or noncompliance with supplemental oxygen. Patient has noted increased lower extremity edema. Patient denies any significant cough or change in sputum recently. Patient did have an indeterminate troponin, but denies any chest pain at this time. Patient reports that he stays home for most of the winter to avoid illness. Patient does report that he recently had a of a close friend and did go to a , but is unclear if the had any sick contacts during this event. Review of systems otherwise negative ?10 systems. Past Medical History Past Medical History (Chronic Problems): Chronic Problems (Last Reviewed 10/18/17 @ 10:07 by Yamilet Reyes) Respiratory failure (Chronic) Currently requiring 6 L of supplemental oxygen at all times, on a noninvasive ventilator for sleep Stage 1 mild COPD by GOLD classification (Chronic) FEV1 91% of predicted Depression (Chronic) Diabetes (Chronic) Lung cancer (Chronic) Pulmonary hypertension (Chronic) PASP greater than 90 mmHg Diastolic heart failure (Chronic) Sleep-related breathing disorder (Chronic) Solitary lung nodule (Chronic) Right ventricular diastolic dysfunction (Chronic) Patent foramen ovale (Chronic) PND (paroxysmal nocturnal dyspnea) (Chronic) Moderate to severe pulmonary hypertension (Chronic) Colon cancer (Chronic) COPD (chronic obstructive pulmonary disease) (Chronic) Hypertension (Chronic) Allergies No Known Allergies Allergy (Verified 10/18/17 10:07) Home Medications: Ambulatory Orders Medication Instructions Recorded Albuterol IH (ProAir) [Proair Hfa] 1 - 2 puff INHALATION Q4H PRN PRN 03/04/17 Budesonide/Formoterol Fumarate 2 puff IH BID 03/04/17 [Symbicort 160-4.5 Mcg Inhaler] Calcium Carbonate/Vitamin D3 1 ea PO DAILY 03/04/17 [Calcium 600-Vit D3 800 Tab] Cinnamon Bark [Cinnamon] 500 mg PO BID 03/04/17 Furosemide [Lasix] 20 mg PO DAILY 03/04/17 Ipratropium/Albuterol Sulfate 3 ml INHALATION Q6HWA.RT 03/04/17 [Duoneb] Lisinopril [Zestril] 5 mg PO DAILY 03/04/17 Multivit-Min/FA/Lycopen/Lutein 1 ea PO DAILY 03/04/17 [Centrum Silver Men Tablet] Mv-Min/FA/Vit K/Lycop/Lut/Zeax 1 ea PO DAILY 03/04/17 [Ocuvite Eye Plus Multi Tablet] Omeprazole [Prilosec] 40 mg PO DAILY 03/04/17 Sertraline HCl [Zoloft] 50 mg PO DAILY 03/04/17 Simvastatin [Zocor] 40 mg PO QHS 03/04/17 Sodium Chloride 0.65% [[place] Nasal 2 spray NASAL BID PRN PRN #0 03/07/17 Commodore] spray.btl albuterol sulfate 2.5 mg/3 mL 2.5 mg INHALATION Q4H PRN #180 ml 09/28/17 (0.083 %) solution for nebulization macitentan 10 mg tablet 10 mg PO QHS 10/18/17 Aspirin [Aspirin, Baby] 81 mg PO DAILY@0800 01/03/18 Fluticasone 0.05% [Flonase Nasal 2 spray INTRANASAL DAILY 01/03/18 Commodore] Guaifenesin [Mucinex] 1,200 mg PO BID PRN PRN 01/03/18 Lorazepam [Ativan] 0.5 mg PO DAILY 01/03/18 Melatonin/Pyridoxine HCl (B6) 1 each PO QHS 01/03/18 [Melatonin 10 mg Tablet] Mirtazapine [Mirtazapine] 7.5 mg PO QHS 01/03/18 Tadalafil [Adcirca] 40 mg PO DAILY 01/03/18 Tiotropium Warren [Spiriva] 1 cap INHALATION DAILY 01/03/18 Surgical History: colectomy Smoking Status: Former smoker - *Family History Paternal History Items: Hypertension Review of Systems Comment: See HPI Objective: CT scan of the chest and chest x-ray were personally reviewed. Advanced emphysematous changes are noted bilaterally. Patient does have some area of confluence in the lower lobes, right greater than left with a mild effusion on the right. - Physical Exam General: Alert, Oriented x3, Cooperative, - - Mild to moderate conversational dyspnea noted. Appears older than stated age. HEENT: Atraumatic, PERRLA, EOMI, Normocephalic, - - Slight scleral injection without icterus Oral: Moist Mucosa, No Gingival or Mucosal Lesions/ Ulcerations Neck: Supple, No Nodes, Trachea Midline, JVD, Right Lungs: No rhonchi, No rales, Diminished, Wheezes, - - Symmetric expansion. Increased AP diameter. Cardiovascular: Normal S1, Normal S2, Murmur - Grade 3 out of 6 systolic ejection murmur at the left lower sternal border, No rub noted, No Gallop Abdomen: Bowel Sounds Present, Soft, Non Tender, Non-Distended Extremities: No cyanosis, Clubbing, Diminished Peripheral Pulses, Edema Skin: No rashes, No breakdown Musculoskeletal: No Tenderness to Palpation of Joints or Extremities Lymphatic: No Cervical, Supraclavicular, or Inguinal Adenopathy Neurological: Cranial nerves II-XII grossly intact, Neuro grossly intact, Motor Exam 5/5 strength throughout Psych/Mental Status: Alert and oriented to time, place, person, mood and affect Vital Signs Temp Pulse Resp BP Pulse Ox 36.2 C L 24 L 23 H 93/78 95 01/04/18 06:00 01/04/18 06:00 01/04/18 06:00 01/04/18 06:00 01/04/18 06:00 Oxygen Delivery Method Bi-pap Weight: 73.9 kg Body Mass Index (BMI) 23.2 Intake and Output for Last 24 Hours 01/02/18 01/03/18 01/04/18 23:59 23:59 23:59 Intake Total 305 / 305 553 / 553 Output Total 1650 / 1650 200 / 200 Balance -1345 / -1345 353 / 353 Laboratory Tests Past 24 Hrs 01/03/18 01/03/18 01/03/18 17:30 18:15 18:30 WBC RBC Hgb Hct MCV MCH MCHC RDW RDW Differential Plt Count MPV Immature Gran % (Auto) Neut % (Auto) Lymph % (Auto) [place] % (Auto) Eos % (Auto) Baso % (Auto) Absolute Neuts (auto) Absolute Lymphs (auto) Total Counted Differential Comment Platelet Estimate Plt Morphology Comment Polychromasia Anisocytosis Macrocytosis Specimen Type Sample Site pH Bicarbonate Actual POC Total CO2 Base Excess O2 Saturation O2 % ABG pCO2 ABG pO2 Deshawn Test Respiration Rate O2 Delivery Device EPAP IPAP Blood Gas Notified Whom Sodium Potassium Chloride Carbon Dioxide Anion Gap BUN Creatinine Estim Creat Clear Calc Est GFR (MDRD) Af Amer Est GFR (MDRD) Non-Af BUN/Creatinine Ratio Glucose Lactic Acid 1.4 Calcium Phosphorus Magnesium Troponin I 0.21 H MRSA (PCR) Negative 01/03/18 01/03/18 01/04/18 20:10 21:30 05:30 WBC 5.6 RBC 6.51 H Hgb 13.2 Hct 40.4 MCV 62.1 L MCH 20.3 L MCHC 32.7 RDW 22.6 H RDW Differential 48.2 H Plt Count 243 MPV 9.1 Immature Gran % (Auto) 0.200 Neut % (Auto) 73.5 H Lymph % (Auto) 12.8 L [place] % (Auto) 13.1 H Eos % (Auto) 0.0 Baso % (Auto) 0.4 Absolute Neuts (auto) 4.2 Absolute Lymphs (auto) 0.72 L Total Counted Not Reportable Differential Comment SCAN Platelet Estimate ADEQUATE Plt Morphology Comment LARGE Polychromasia 1+ Anisocytosis 1+ Macrocytosis 1+ Specimen Type ART Sample Site L Radial pH 7.41 Bicarbonate Actual 17.6 L POC Total CO2 18 Base Excess -7 L O2 Saturation 96 O2 % 60 ABG pCO2 28.0 L ABG pO2 80 Deshawn Test POS Respiration Rate 12 O2 Delivery Device Bi / C PAP EPAP 8 IPAP 16 Blood Gas Notified Whom ICU MD Sodium Potassium Chloride Carbon Dioxide Anion Gap BUN Creatinine Estim Creat Clear Calc Est GFR (MDRD) Af Amer Est GFR (MDRD) Non-Af BUN/Creatinine Ratio Glucose Lactic Acid Calcium Phosphorus Magnesium Troponin I 0.18 H MRSA (PCR) 01/04/18 01/04/18 01/04/18 05:30 05:30 05:30 WBC RBC Hgb Hct MCV MCH MCHC RDW RDW Differential Plt Count MPV Immature Gran % (Auto) Neut % (Auto) Lymph % (Auto) [place] % (Auto) Eos % (Auto) Baso % (Auto) Absolute Neuts (auto) Absolute Lymphs (auto) Total Counted Differential Comment Platelet Estimate Plt Morphology Comment Polychromasia Anisocytosis Macrocytosis Specimen Type Sample Site pH Bicarbonate Actual POC Total CO2 Base Excess O2 Saturation O2 % ABG pCO2 ABG pO2 Deshawn Test Respiration Rate O2 Delivery Device EPAP IPAP Blood Gas Notified Whom Sodium 138 Potassium 4.7 Chloride 107 Carbon Dioxide 21.0 Anion Gap 10 BUN 37 H Creatinine 1.22 Estim Creat Clear Calc 54.02 Est GFR (MDRD) Af Amer 74 Est GFR (MDRD) Non-Af 61 BUN/Creatinine Ratio 30.3 H Glucose 119 H Lactic Acid Calcium 8.1 L Phosphorus 4.6 Magnesium 2.2 Troponin I 0.16 H MRSA (PCR) POC Glucose 01/03/18 21:43 POC Glucose 171 H Clinical Impression(s) from Imaging Studies Chest X-Ray 01/03/18 14:01 IMPRESSION: Progressive increased markings at the lung bases worse on the right side with blunting of the right costophrenic angle. This may represent either progressive scarring or superimposed infiltration at the right lung base. Electronically Signed: Donnie Jeffrey MD at 14:43 EDT Tel [phone], Service support , Chest CT 01/03/18 14:49 IMPRESSION: Marked degree of emphysematous changes. Small right pleural effusion with underlying bibasilar atelectasis and/or scarring worse on the left side. Electronically Signed: Donnie Jeffrey MD at 15:45 EDT Tel [phone], Service support , Assessment/Plan RECOMMENDATIONS: 1. Supplemental oxygen to keep saturations 88% or greater 2. BiPAP breaks as tolerated 3. Cautious diuresis with intermittent Lasix 4. Initiate systemic steroids 5. Continue home pulmonary hypertension medications 6. Aggressive rate control IMPRESSIONS: 1. Acute on chronic hypoxic respiratory failure Exact etiology is unclear at this time. Differential diagnosis would include acute COPD exacerbation, acute on chronic diastolic congestive heart failure, cor pulmonale secondary to hypoxemia, pneumonia and acute viral infection. Patient's saturations appear to be improving. Patient is hypotensive, but this is likely secondary to decreased cardiac output from elevated pulmonary artery pressures. Patient should continue on baseline pulmonary hypertension medications. Will attempt to control heart rate. Patient will be placed on IV steroids, but clinical suspicion for bronchospasm is relatively low. However, patient has marginal pulmonary reserve at this time. 2. Known COPD and pulmonary hypertension Patient has been seen by pulmonary hypertension specialist at [facility]. Patient should continue with baseline medications for pulmonary hypertension. Will attempt diuresis using intermittent Lasix given marginal blood pressures. Currently on aerosols. No Pulmicort secondary to systemic steroids. 3. Cor pulmonale secondary to severe pulmonary hypertension Cautious use of supplemental IV fluids. Elevated BNP and marginal troponin likely secondary to right heart strain, not left heart strain. Would not recommend significant peripheral IV fluids if possible. 4. Allergic rhinitis/postnasal drip syndrome Continue Flonase 2 sprays in each nostril daily. 5. Severe debility/hyperlipidemia/GERD/diabetes Complicates care, management, recovery and prognosis. Patient on sliding scale insulin coverage. 6. Lung nodule Patient does have a history of cancer in the past. He is aware of the lung nodule, but given comorbid factors, biopsy is likely not appropriate and can lead to significant complications. Current perception is that the risk is greater than benefit in patients morbidity and mortality is more closely linked to his severe pulmonary hypertension and emphysema. 7. CODE STATUS: DNR CCA without intubation TIME: 37 minutes critical care time spent addressing patient's acute on chronic hypoxic respiratory failure, cor pulmonale, elevated troponin, review of all data and collaboration with care team Code Visit [id number]: [id number] Critical care first hour
[2018-01-04] MEDS: Multivitamins,Ther W-Minerals Tablet 1 TABLET PO (07:42)
[2018-01-04] MEDS: Calcium Carb/Vitamin D 1 TABLET Tablet PO (07:42)
[2018-01-04] MEDS: Aspirin 81 MG TAB.CHEW PO (07:42)
[2018-01-04 08:46] LABS: Bedside Glucose 152 mg/dL (70-110)
[2018-01-04] MEDS: MACITENTAN 10 MG PO (09:44)
[2018-01-04] MEDS: TADALAFIL 20 MG TABLET 40 MG PO (09:44)
[2018-01-04] MEDS: LORazepam 0.5 MG Tablet PO (09:45)
[2018-01-04] MEDS: Pantoprazole Sodium 40 MG Tablet PO (09:45)
[2018-01-04] MEDS: Fluticasone 0.05% 1 SPRAY NASAL.SRY 2 SPRAY NASAL (09:45)
[2018-01-04] MEDS: Enoxaparin 40 MG/0.4 ML Syringe SC (09:45)
[2018-01-04] MEDS: Sertraline 50 MG Tablet PO (09:46)
--- NOTE | 2018-01-04 11:18 | CASEMGMT ---
See RN ASHLEY Assessment Link. DC Plan: undetermined. Pt is active with Palliative Care, assists @ home. He wears 6L NC and per Dr. Cameron, may need high flow capability on DC. -Call to [facility] to discuss options for pt. He has concentrator that can go to 5L NC now with portability. Therapist is to return RN ASHLEY call to discuss options for liquid oxygen. Thai BARNES RN ACM
[2018-01-04 11:30] LABS: Bedside Glucose 167 mg/dL (70-110)
[2018-01-04] MEDS: Furosemide 20 MG/2 ML VIAL IV ×2 (12:19→17:46)
--- NOTE | 2018-01-04 13:01 | CHAPLAIN ---
Type of Pastoral Visit _x__ Initial Visit ___ Follow-up Visit ___ On-call Visit ___ General Patient Visit ___ Spiritual Assessment ___ Family Conference ___ Bereavement ___ Rapid Response ___ Code Blue ___ Other (describe below) Pastoral Care Referral From _x__ Patient ___ Family ___ Nurse ___ Physician ___ Moth Proofer ___ Manager Contracting ___ Other (describe below) Sacrament/Intervention _x__ Active listening ___ Anointing ___ Buddhism ___ Bereavement ___ Communion ___ Radha exploration ___ ___ Life review _x__ Prayer ___ Reconciliation ___ Sacrament of Sick ___ Supportive presence ___ Wedding ___ Other (describe below) Pastoral Comments patient has family members in the area; pt was tearful after prayer was offered; pt said no concerns for this time
[2018-01-04] MEDS: Glucerna Shake 120 ML LIQUID PO ×3 (13:52→22:03)
--- NOTE | 2018-01-04 15:39 | PN_ITS ---
Subjective: Patient seen and examined earlier this morning in ICU, I also discussed his care with pulmonary medicine. Patient is currently on a Ventimask at the time of my examination this morning. Blood pressures have been running a little bit low, pulmonary medicine does not feel patient has sepsis. - Physical Exam General: Alert, Oriented x3, Cooperative, No apparent distress, Well developed HEENT: Atraumatic, PERRLA, EOMI, Normocephalic Oral: Moist Mucosa Neck: Supple, No JVD, No Nuchal Rigidity, Trachea Midline, Thyroid Normal Size and Texture Lungs: Clear to auscultation, No rhonchi, No wheeze, No rales, Diminished Cardiovascular: Regular rate, Regular Rhythm, Normal S1, Normal S2, No murmurs, No Ectopic Activity, PMI Normal, No rub noted, No Gallop Abdomen: Bowel Sounds Present, Soft, Non Tender, Non-Distended, No hernias noted Extremities: No clubbing, No cyanosis, No edema, Capillary Refill Less than 3 Seconds Skin: No rashes, No breakdown Musculoskeletal: No Tenderness to Palpation of Joints or Extremities, Cachexia Neurological: Cranial nerves II-XII grossly intact, Neuro grossly intact, Sensory exam intact to light touch and pain, Coordination normal Psych/Mental Status: Normal Affect, Appropriate, Alert and oriented to time, place, person, mood and affect Vital Signs Temp Pulse Resp BP Pulse Ox 98.7 F 118 H 18 93/52 L 93 01/04/18 14:00 01/04/18 15:00 01/04/18 15:00 01/04/18 15:00 01/04/18 15:00 Oxygen Flow Rate (L/min) 12 Oxygen Delivery Method Non-Rebreather Weight: 72.5 kg Body Mass Index (BMI) 23.2 Intake and Output for Last 24 Hours 01/02/18 01/03/18 01/04/18 23:59 23:59 23:59 Intake Total 305 / 305 953 / 953 Output Total 1650 / 1650 750 / 750 Balance -1345 / -1345 203 / 203 Laboratory Tests Past 24 Hrs 01/03/18 01/03/18 01/03/18 17:30 18:15 18:30 WBC RBC Hgb Hct MCV MCH MCHC RDW RDW Differential Plt Count MPV Immature Gran % (Auto) Neut % (Auto) Lymph % (Auto) [place] % (Auto) Eos % (Auto) Baso % (Auto) Absolute Neuts (auto) Absolute Lymphs (auto) Total Counted Differential Comment Platelet Estimate Plt Morphology Comment Polychromasia Anisocytosis Macrocytosis Specimen Type Sample Site pH Bicarbonate Actual POC Total CO2 Base Excess O2 Saturation O2 % ABG pCO2 ABG pO2 Deshawn Test Respiration Rate O2 Delivery Device EPAP IPAP Blood Gas Notified Whom Sodium Potassium Chloride Carbon Dioxide Anion Gap BUN Creatinine Estim Creat Clear Calc Est GFR (MDRD) Af Amer Est GFR (MDRD) Non-Af BUN/Creatinine Ratio Glucose Lactic Acid 1.4 Calcium Phosphorus Magnesium Troponin I 0.21 H MRSA (PCR) Negative 01/03/18 01/03/18 01/04/18 20:10 21:30 05:30 WBC 5.6 RBC 6.51 H Hgb 13.2 Hct 40.4 MCV 62.1 L MCH 20.3 L MCHC 32.7 RDW 22.6 H RDW Differential 48.2 H Plt Count 243 MPV 9.1 Immature Gran % (Auto) 0.200 Neut % (Auto) 73.5 H Lymph % (Auto) 12.8 L [place] % (Auto) 13.1 H Eos % (Auto) 0.0 Baso % (Auto) 0.4 Absolute Neuts (auto) 4.2 Absolute Lymphs (auto) 0.72 L Total Counted Not Reportable Differential Comment SCAN Platelet Estimate ADEQUATE Plt Morphology Comment LARGE Polychromasia 1+ Anisocytosis 1+ Macrocytosis 1+ Specimen Type ART Sample Site L Radial pH 7.41 Bicarbonate Actual 17.6 L POC Total CO2 18 Base Excess -7 L O2 Saturation 96 O2 % 60 ABG pCO2 28.0 L ABG pO2 80 Deshawn Test POS Respiration Rate 12 O2 Delivery Device Bi / C PAP EPAP 8 IPAP 16 Blood Gas Notified Whom ICU Sodium Potassium Chloride Carbon Dioxide Anion Gap BUN Creatinine Estim Creat Clear Calc Est GFR (MDRD) Af Amer Est GFR (MDRD) Non-Af BUN/Creatinine Ratio Glucose Lactic Acid Calcium Phosphorus Magnesium Troponin I 0.18 H MRSA (PCR) 01/04/18 01/04/18 01/04/18 05:30 05:30 05:30 WBC RBC Hgb Hct MCV MCH MCHC RDW RDW Differential Plt Count MPV Immature Gran % (Auto) Neut % (Auto) Lymph % (Auto) [place] % (Auto) Eos % (Auto) Baso % (Auto) Absolute Neuts (auto) Absolute Lymphs (auto) Total Counted Differential Comment Platelet Estimate Plt Morphology Comment Polychromasia Anisocytosis Macrocytosis Specimen Type Sample Site pH Bicarbonate Actual POC Total CO2 Base Excess O2 Saturation O2 % ABG pCO2 ABG pO2 Deshawn Test Respiration Rate O2 Delivery Device EPAP IPAP Blood Gas Notified Whom Sodium 138 Potassium 4.7 Chloride 107 Carbon Dioxide 21.0 Anion Gap 10 BUN 37 H Creatinine 1.22 Estim Creat Clear Calc 54.02 Est GFR (MDRD) Af Amer 74 Est GFR (MDRD) Non-Af 61 BUN/Creatinine Ratio 30.3 H Glucose 119 H Lactic Acid Calcium 8.1 L Phosphorus 4.6 Magnesium 2.2 Troponin I 0.16 H MRSA (PCR) POC Glucose 01/04/18 01/04/18 01/03/18 11:23 07:37 21:43 POC Glucose 167 H 152 H 171 H Medical Necessity - Tobacco Use Smoking Status: Former smoker Assessment/Plan #1 acute on chronic hypoxic respiratory failure-actual etiology unclear at this point, continue present care in ICU, pulmonary medicine is participating in his care #2 chronic obstructive pulmonary disease-continue present care #3 pulmonary hypertension #4 type 2 diabetes #5 cor pulmonale Code Visit Inpatient E&M: 89767 Subs Hosp L2
[2018-01-04 16:41] LABS: Bedside Glucose 214 mg/dL (70-110)
[2018-01-04] MEDS: Atorvastatin Calcium 20 MG Tablet PO (22:03)
[2018-01-04] MEDS: Mirtazapine 15 MG Tablet 7.5 MG PO (22:03)
[2018-01-04] MEDS: MELATONIN 10 MG TABLET PO (22:03)
[2018-01-04] MEDS: Sodium Chloride 0.65% 1 SPRAY SPRAY.BTL 2 SPRAY NASAL (22:07)
[2018-01-04 22:15] LABS: Bedside Glucose 189 mg/dL (70-110)
[2018-01-05] VITALS (38 sets, daily range): BP systolic 88–115; BP diastolic 54–92; PULSE 108–121; RESP 12–23; TEMP 36.2–36.9; O2SAT 85–97
[2018-01-05 04:52] LABS: Absolute Neutrophil Count 8.3 X10^3/uL (2.0-7.7); Anion Gap 9 (5-15); BUN 49 mg/dL (7-18); BUN/Creat Ratio 33.1 RATIO (10-20); Calcium,Total 8.4 mg/dL (8.5-10.1); Chloride 103 mmol/L (98-107); Creatinine, Serum 1.48 mg/dL (0.70-1.30); EST Glomerular Filtration Rate 49 mL/min (>60); Est Glom Filt Rate - Afr Amer 60 mL/min (>60); Estimated Creatinine Clearance 44.22 ml/min; Glucose 209 mg/dL (74-106); Hematocrit 40.8 % (40-54); Hemoglobin 12.5 g/dl (13.0-16.5); Lymphocyte % 4.3 % (19-41); Mean Corp Hgb Conc 30.6 g/gl (32-36); Mean Corpuscular Volume 65.2 fL (80-94); Monocyte# 0.61 X10^3/uL; Monocyte% 6.5 % (0-10); Platelet Count 238 K/mm3 (150-450); Potassium 4.8 mmol/L (3.5-5.1); RBC Distribution Width CV 21.1 % (11.6-14.6); RBC Distribution Width SD 47.9 fl (35.1-43.9); Red Blood Count 6.26 M/mm3 (4.6-6.2); Sodium Level 137 mmol/L (136-145); White Blood Count 9.3 K/mm3 (4.4-11.0)
[2018-01-05] MEDS: 0.9% NaCl Peripheral Flush Adult/Peds IV ×5 (05:04→23:24)
[2018-01-05 05:11] LABS: Differential Indicated SCAN CRITERIA MET; POSITIVE COUNT NO; POSITIVE DIFFERENTIAL YES; POSITIVE MORPHOLOGY YES
[2018-01-05] MEDS: CHLORHEXIDINE GLUC 2% CLOTH 1 EACH TOWELETTE TOPICAL (05:11)
[2018-01-05] MEDS: Sodium Chloride 0.65% 1 SPRAY SPRAY.BTL 2 SPRAY NASAL (05:26)
[2018-01-05 05:34] LABS: Differential Comment SCANNED; Hypochromasia 2+; Microcytosis 3+; Schistocytes RARE
[2018-01-05 05:35] LABS: Target Cells 1+
--- NOTE | 2018-01-05 06:38 | PCM.PN.INT ---
Subjective: Patient did okay overnight. Patient reports subjective improvement in overall condition. Patient did use positive pressure overnight. Patient has been tolerating nonrebreather with 8 liters nasal cannula during the day. Patient did receive 2 doses of diuretic therapy yesterday. Patient denies any pain at this time. General: Alert, Oriented x3, Cooperative, - - Conversational dyspnea noted. HEENT: Atraumatic, PERRLA, EOMI, Normocephalic, - - Scleral injection without icterus Oral: No Gingival or Mucosal Lesions/ Ulcerations, Dry Mucosa Neck: Supple, No Nodes, Trachea Midline, JVD, Right Lungs: No rhonchi, No wheeze, No rales, Diminished, - - Symmetric expansion. No dullness to percussion. Increased AP diameter. Cardiovascular: Normal S1, Normal S2, Murmur - Grade 3 out of 6 diastolic murmur at the left sternal border, Tachycardic Abdomen: Bowel Sounds Present, Soft, Non Tender, Non-Distended Extremities: No cyanosis, Clubbing, Edema - No significant improvement compared to yesterday Skin: - - No significant change compared to previous Musculoskeletal: No Tenderness to Palpation of Joints or Extremities Lymphatic: No Cervical, Supraclavicular, or Inguinal Adenopathy Neurological: Cranial nerves II-XII grossly intact, Neuro grossly intact, Motor Exam 5/5 strength throughout Psych/Mental Status: Alert and oriented to time, place, person, mood and affect Vital Signs Temp Pulse Resp BP Pulse Ox 36.2 C L 115 H 15 105/71 95 01/05/18 06:00 01/05/18 06:00 01/05/18 06:00 01/05/18 06:00 01/05/18 06:00 Oxygen Flow Rate (L/min) 12 Oxygen Delivery Method Non-Rebreather Weight: 73.4 kg Body Mass Index (BMI) 23.2 Intake and Output for Last 24 Hours 01/03/18 01/04/18 01/05/18 23:59 23:59 23:59 Intake Total 305 / 305 1913 / 1913 240 / 240 Output Total 1650 / 1650 1850 / 1850 350 / 350 Balance -1345 / -1345 63 / 63 -110 / -110 Labs (Last 48 Hours) 01/03/18 01/03/18 01/03/18 17:30 18:15 18:30 WBC RBC Hgb Hct MCV MCH MCHC RDW RDW Differential Plt Count MPV Immature Gran % (Auto) Neut % (Auto) Lymph % (Auto) [place] % (Auto) Eos % (Auto) Baso % (Auto) Absolute Neuts (auto) Absolute Lymphs (auto) Total Counted Differential Comment Platelet Estimate Plt Morphology Comment Polychromasia Hypochromasia Anisocytosis Microcytosis Macrocytosis Target Cells Schistocytes Specimen Type Sample Site pH Bicarbonate Actual POC Total CO2 Base Excess O2 Saturation O2 % ABG pCO2 ABG pO2 Deshawn Test Respiration Rate O2 Delivery Device EPAP IPAP Blood Gas Notified Whom Sodium Potassium Chloride Carbon Dioxide Anion Gap BUN Creatinine Estim Creat Clear Calc Est GFR (MDRD) Af Amer Est GFR (MDRD) Non-Af BUN/Creatinine Ratio Glucose Lactic Acid 1.4 Calcium Phosphorus Magnesium Troponin I 0.21 H MRSA (PCR) Negative POC Glucose 01/03/18 01/03/18 01/03/18 20:10 21:30 21:43 WBC RBC Hgb Hct MCV MCH MCHC RDW RDW Differential Plt Count MPV Immature Gran % (Auto) Neut % (Auto) Lymph % (Auto) [place] % (Auto) Eos % (Auto) Baso % (Auto) Absolute Neuts (auto) Absolute Lymphs (auto) Total Counted Differential Comment Platelet Estimate Plt Morphology Comment Polychromasia Hypochromasia Anisocytosis Microcytosis Macrocytosis Target Cells Schistocytes Specimen Type ART Sample Site L Radial pH 7.41 Bicarbonate Actual 17.6 L POC Total CO2 18 Base Excess -7 L O2 Saturation 96 O2 % 60 ABG pCO2 28.0 L ABG pO2 80 Deshawn Test POS Respiration Rate 12 O2 Delivery Device Bi / C PAP EPAP 8 IPAP 16 Blood Gas Notified Whom ICU MD Sodium Potassium Chloride Carbon Dioxide Anion Gap BUN Creatinine Estim Creat Clear Calc Est GFR (MDRD) Af Amer Est GFR (MDRD) Non-Af BUN/Creatinine Ratio Glucose Lactic Acid Calcium Phosphorus Magnesium Troponin I 0.18 H MRSA (PCR) POC Glucose 171 H 01/04/18 01/04/18 01/04/18 05:30 05:30 05:30 WBC 5.6 RBC 6.51 H Hgb 13.2 Hct 40.4 MCV 62.1 L MCH 20.3 L MCHC 32.7 RDW 22.6 H RDW Differential 48.2 H Plt Count 243 MPV 9.1 Immature Gran % (Auto) 0.200 Neut % (Auto) 73.5 H Lymph % (Auto) 12.8 L [place] % (Auto) 13.1 H Eos % (Auto) 0.0 Baso % (Auto) 0.4 Absolute Neuts (auto) 4.2 Absolute Lymphs (auto) 0.72 L Total Counted Not Reportable Differential Comment SCAN Platelet Estimate ADEQUATE Plt Morphology Comment LARGE Polychromasia 1+ Hypochromasia Anisocytosis 1+ Microcytosis Macrocytosis 1+ Target Cells Schistocytes Specimen Type Sample Site pH Bicarbonate Actual POC Total CO2 Base Excess O2 Saturation O2 % ABG pCO2 ABG pO2 Deshawn Test Respiration Rate O2 Delivery Device EPAP IPAP Blood Gas Notified Whom Sodium 138 Potassium 4.7 Chloride 107 Carbon Dioxide 21.0 Anion Gap 10 BUN 37 H Creatinine 1.22 Estim Creat Clear Calc 54.02 Est GFR (MDRD) Af Amer 74 Est GFR (MDRD) Non-Af 61 BUN/Creatinine Ratio 30.3 H Glucose 119 H Lactic Acid Calcium 8.1 L Phosphorus Magnesium Troponin I 0.16 H MRSA (PCR) POC Glucose 01/04/18 01/04/18 01/04/18 05:30 07:37 11:23 WBC RBC Hgb Hct MCV MCH MCHC RDW RDW Differential Plt Count MPV Immature Gran % (Auto) Neut % (Auto) Lymph % (Auto) [place] % (Auto) Eos % (Auto) Baso % (Auto) Absolute Neuts (auto) Absolute Lymphs (auto) Total Counted Differential Comment Platelet Estimate Plt Morphology Comment Polychromasia Hypochromasia Anisocytosis Microcytosis Macrocytosis Target Cells Schistocytes Specimen Type Sample Site pH Bicarbonate Actual POC Total CO2 Base Excess O2 Saturation O2 % ABG pCO2 ABG pO2 Deshawn Test Respiration Rate O2 Delivery Device EPAP IPAP Blood Gas Notified Whom Sodium Potassium Chloride Carbon Dioxide Anion Gap BUN Creatinine Estim Creat Clear Calc Est GFR (MDRD) Af Amer Est GFR (MDRD) Non-Af BUN/Creatinine Ratio Glucose Lactic Acid Calcium Phosphorus 4.6 Magnesium 2.2 Troponin I MRSA (PCR) POC Glucose 152 H 167 H 01/04/18 01/04/18 01/05/18 16:30 22:06 04:30 WBC 9.3 RBC 6.26 H Hgb 12.5 L Hct 40.8 MCV 65.2 L MCH 20.0 L MCHC 30.6 L RDW 21.1 H RDW Differential 47.9 H Plt Count 238 MPV Immature Gran % (Auto) 0.200 Neut % (Auto) 89.0 H Lymph % (Auto) 4.3 L [place] % (Auto) 6.5 Eos % (Auto) 0.0 Baso % (Auto) 0.0 Absolute Neuts (auto) 8.3 H Absolute Lymphs (auto) 0.40 L Total Counted Not Reportable Differential Comment SCANNED Platelet Estimate Plt Morphology Comment Polychromasia Hypochromasia 2+ Anisocytosis Microcytosis 3+ Macrocytosis Target Cells 1+ Schistocytes RARE Specimen Type Sample Site pH Bicarbonate Actual POC Total CO2 Base Excess O2 Saturation O2 % ABG pCO2 ABG pO2 Deshawn Test Respiration Rate O2 Delivery Device EPAP IPAP Blood Gas Notified Whom Sodium Potassium Chloride Carbon Dioxide Anion Gap BUN Creatinine Estim Creat Clear Calc Est GFR (MDRD) Af Amer Est GFR (MDRD) Non-Af BUN/Creatinine Ratio Glucose Lactic Acid Calcium Phosphorus Magnesium Troponin I MRSA (PCR) POC Glucose 214 H 189 H 01/05/18 04:30 WBC RBC Hgb Hct MCV MCH MCHC RDW RDW Differential Plt Count MPV Immature Gran % (Auto) Neut % (Auto) Lymph % (Auto) [place] % (Auto) Eos % (Auto) Baso % (Auto) Absolute Neuts (auto) Absolute Lymphs (auto) Total Counted Differential Comment Platelet Estimate Plt Morphology Comment Polychromasia Hypochromasia Anisocytosis Microcytosis Macrocytosis Target Cells Schistocytes Specimen Type Sample Site pH Bicarbonate Actual POC Total CO2 Base Excess O2 Saturation O2 % ABG pCO2 ABG pO2 Deshawn Test Respiration Rate O2 Delivery Device EPAP IPAP Blood Gas Notified Whom Sodium 137 Potassium 4.8 Chloride 103 Carbon Dioxide 25.0 Anion Gap 9 BUN 49 H Creatinine 1.48 H Estim Creat Clear Calc 44.22 Est GFR (MDRD) Af Amer 60 Est GFR (MDRD) Non-Af 49 L BUN/Creatinine Ratio 33.1 H Glucose 209 H Lactic Acid Calcium 8.4 L Phosphorus Magnesium Troponin I MRSA (PCR) POC Glucose Medical Necessity - Tobacco Use Smoking Status: Former smoker Assessment/Plan RECOMMENDATIONS: 1. Supplemental oxygen to keep saturations 88% or greater 2. BiPAP breaks as tolerated 3. Cautious diuresis with intermittent Lasix 4. Continue systemic steroids 5. Continue home pulmonary hypertension medications 6. Aggressive rate control IMPRESSIONS: 1. Acute on chronic hypoxic respiratory failure Exact etiology is unclear at this time. Differential diagnosis would include acute COPD exacerbation, acute on chronic diastolic congestive heart failure, cor pulmonale secondary to hypoxemia, pneumonia and acute viral infection. Patient's saturations appear to be improving in that he is no longer BiPAP dependent. Patient is intermittently hypotensive, but this is likely secondary to decreased cardiac output from elevated pulmonary artery pressures. Patient should continue on baseline pulmonary hypertension medications. Will attempt to control heart rate. Patient placed on IV steroids, but clinical suspicion for bronchospasm is relatively low. However, patient has marginal pulmonary reserve at this time. Patient is to be seen at [facility] in February. Patient may need to be advanced to continuous prostaglandin therapy. 2. Known COPD and pulmonary hypertension Patient has been seen by pulmonary hypertension specialist at [facility]. Patient should continue with baseline medications for pulmonary hypertension. Will attempt diuresis using intermittent Lasix given marginal blood pressures. Currently on aerosols. No Pulmicort secondary to systemic steroids. 3. Cor pulmonale secondary to severe pulmonary hypertension Cautious use of supplemental IV fluids. Elevated BNP and marginal troponin likely secondary to right heart strain, not left heart strain. Would not recommend significant peripheral IV fluids if possible. 4. Allergic rhinitis/postnasal drip syndrome Continue Flonase 2 sprays in each nostril daily. 5. Severe debility/hyperlipidemia/GERD/diabetes Complicates care, management, recovery and prognosis. Patient on sliding scale insulin coverage. 6. Lung nodule Patient does have a history of cancer in the past. He is aware of the lung nodule, but given comorbid factors, biopsy is likely not appropriate and can lead to significant complications. Current perception is that the risk is greater than benefit in patients morbidity and mortality is more closely linked to his severe pulmonary hypertension and emphysema. 7. CODE STATUS: DNR CCA without intubation TIME: 32 minutes critical care time spent addressing patient's acute on chronic hypoxic respiratory failure, cor pulmonale, elevated troponin, review of all data and collaboration with care team (5:15 AM to 6:30 AM) Code Visit [id number]: [id number] Critical care first hour
[2018-01-05 06:55] LABS: Bedside Glucose 192 mg/dL (70-110)
[2018-01-05] MEDS: Ipratropium/Albuterol Sulfate 3 ML AMPUL.NEB INHALATION ×3 (07:01→19:38)
[2018-01-05] MEDS: Aspirin 81 MG TAB.CHEW PO (07:35)
[2018-01-05] MEDS: Calcium Carb/Vitamin D 1 TABLET Tablet PO (07:35)
[2018-01-05] MEDS: Multivitamins,Ther W-Minerals Tablet 1 TABLET PO (07:35)
[2018-01-05] MEDS: TADALAFIL 20 MG TABLET 40 MG PO (10:05)
[2018-01-05] MEDS: MACITENTAN 10 MG PO (10:05)
[2018-01-05] MEDS: Metoprolol Tartrate 5 MG/5 ML Vial 2.5 MG IV (10:06)
[2018-01-05] MEDS: Enoxaparin 40 MG/0.4 ML Syringe SC (10:06)
[2018-01-05] MEDS: Glucerna Shake 120 ML LIQUID PO ×3 (10:06→21:16)
[2018-01-05] MEDS: Fluticasone 0.05% 1 SPRAY NASAL.SRY 2 SPRAY NASAL (10:07)
[2018-01-05] MEDS: LORazepam 0.5 MG Tablet PO (10:07)
[2018-01-05] MEDS: Pantoprazole Sodium 40 MG Tablet PO (10:07)
[2018-01-05] MEDS: Sertraline 50 MG Tablet PO (10:08)
[2018-01-05] MEDS: Senna/Docusate Sodium 1 Tablet PO ×2 (10:08→21:18)
--- NOTE | 2018-01-05 10:22 | EKG12_ITS ---
Test Reason : ARRYTHMIA Blood Pressure : / mmHG Vent. Rate : 090 BPM Atrial Rate : 234 BPM P-R Int : 000 ms QRS Dur : 092 ms QT Int : 344 ms P-R-T Axes : 000 109 023 degrees QTc Int : 420 ms Atrial flutter with variable A-V block Right ventricular hypertrophy with repolarization abnormality Nonspecific T wave abnormality Abnormal ECG Confirmed by NATALIA MCRAE, NALINI ([id number]), graphic editor MIGUEL A FOLEY ([id number]) on 01/10/2018 1:50:43 PM Referred By: ARASH Confirmed By:NALINI FISHER MD
--- NOTE | 2018-01-05 11:34 | ECHOD_ITS ---
Reason For Study: AFIB Procedure This was a 2D Doppler, Color Flow transthoracic echocardiogram. Technically difficult d/t pt being on BiPap during exam. Exam performed portable in ICU/CCU. Left Ventricle Normal size and thickness. D shaped septum in diastole. The estimated ejection fraction is 75 %. No regional wall motion abnormalities noted. Right Ventricle Severely dilated right ventricle. Moderate global right ventricular systolic dysfunction. Atria The left atrium is severely enlarged. The right atrium is severely enlarged. Normal atrial septum. Mitral Valve Mild diffuse mitral valve thickening. Trivial mitral valve insufficiency. Tricuspid Valve Normal tricuspid valve. Moderately severe (3+) tricuspid valve insufficiency. Right ventricular systolic pressure estimated to be 61 mmHg. Severe pulmonary hypertension. Aortic Valve Trisinus/trileaflet aortic valve. Mild focal aortic valve thickening. There is no aortic stenosis. Pulmonic Valve Normal pulmonic valve. Great Vessels Normal aortic root. Normal arch. The inferior vena cava is dilated. No collapse of the inferior vena cava. Pericardium/Pleural No pericardial effusion. Small right pleural effusion. MMode/2D Measurements & Calculations LVIDd: 3.6 cm IVSd: 0.92 cm Ao root diam: 3.4 cm LVIDs: 2.2 cm LVPWd: 1.1 cm LA dimension: 3.7 cm RVDd: 5.3 cm FS: 38.4 % LAV(MOD-bp): 72.3 ml LA A4 area: 24.0 cm2 RA A4 area: 22.0 cm2 LAV(MOD-bp) Indexed: 38.0 ml/m2 LAV(MOD-sp2): 61.0 ml LAV(MOD-sp4): 77.5 ml Doppler Measurements & Calculations Ao V2 max: 129.6 cm/sec LV V1 max: 76.4 cm/sec TR max darron: 341.4 cm/sec Ao max P.7 mmHg LV V1 max P.3 mmHg TR max P.6 mmHg Interpretation Summary The estimated ejection fraction is 75 %. D shaped septum in diastole. Severely dilated right ventricle. Moderate global right ventricular systolic dysfunction. The left atrium is severely enlarged. The right atrium is severely enlarged. Trivial mitral valve insufficiency. Moderately severe (3+) tricuspid valve insufficiency. Right ventricular systolic pressure estimated to be 61 mmHg. Severe pulmonary hypertension. The inferior vena cava is dilated No collapse of the inferior vena cava. Compared to echo report dated 10/15/2016, LV function has remained the same, RVSP has decreased from91 to 61. Ordering Physician: Vince Cameron Referring Physician: BRYAN MORRISON Performed By: Nisha Mendoza, TEA, RVT
[2018-01-05 11:45] LABS: Bedside Glucose 163 mg/dL (70-110)
--- NOTE | 2018-01-05 14:08 | CASEMGMT ---
BARNEY RAMIREZ called to [facility] re: Liquid oxygen if recommended by physician on dc. Per [facility], this can be ordered with a new script which needs to be marked with liquid oxygen and dispense as written. They recommend standard O2 portability as the tanks last longer. Melvin DONALDSONN RN ACM
--- NOTE | 2018-01-05 14:58 | CASEMGMT ---
SW spoke w/CM, pt may end up needing alf placement at discharge. SW reviewed PT/OT, though pt is getting up w/little to no assist, he is getting very short of breath, even on 6 liters of O2. SW met w/pt and in room in regard to discharge plan. Pt would prefer to go home if possible. SW reviewed the alf option for rehab w/pt and , gave them a list of in network facilities. Pt and state if SNF was needed, they would prefer TCU. SW had called earlier, and there would likely be a bed for pt when he is ready for discharge--they will have a bed in TCU by Tuesday if not earlier. SW let pt and know we can put his name on the TCU list, and that there would likely be a bed ready for pt when he is ready to leave the hospital. Pt and agreeable to this. SW called TCU, Alix put pt on the TCU list. SW will continue to follow for potential referral to TCU, and if pt does need to go to TCU, will call [facility] for precert. KERVIN Alcantara, [employer]
[2018-01-05 16:16] LABS: Bedside Glucose 202 mg/dL (70-110)
--- NOTE | 2018-01-05 16:18 | NURSING ---
pt spo2 down into the low 80's to mid 80's on 8L high flow O2 and 100% NRB. pt refusing to put bipap on at this time. pt states I feel fine Dr. Cameron aware, new orders received
[2018-01-05] MEDS: Furosemide 20 MG/2 ML VIAL IV (17:01)
--- NOTE | 2018-01-05 17:35 | PN_ITS ---
Subjective: Patient seen and examined today, I talked with his daughter who is in the room this morning. Patient's still on high flow oxygen. - Physical Exam General: Alert, Oriented x3, Cooperative, No apparent distress, Well developed, Well nourished HEENT: Atraumatic, PERRLA, EOMI, Normocephalic Oral: Moist Mucosa Neck: Supple, No JVD, No Nuchal Rigidity, Trachea Midline, Thyroid Normal Size and Texture Lungs: Clear to auscultation, No rhonchi, No wheeze, No rales, Diminished Cardiovascular: Regular rate, Regular Rhythm, Normal S1, Normal S2, No murmurs, Tachycardic Abdomen: Bowel Sounds Present, Soft, Non Tender, Non-Distended, No hernias noted Extremities: No clubbing, No cyanosis, No edema, Capillary Refill Less than 3 Seconds Skin: No rashes, No breakdown Musculoskeletal: No Tenderness to Palpation of Joints or Extremities Neurological: Cranial nerves II-XII grossly intact, Neuro grossly intact, Sensory exam intact to light touch and pain, Coordination normal Psych/Mental Status: Normal Affect, Appropriate, Alert and oriented to time, place, person, mood and affect Vital Signs Temp Pulse Resp BP Pulse Ox 98 F 118 H 17 107/66 85 01/05/18 16:00 01/05/18 16:00 01/05/18 16:00 01/05/18 16:00 01/05/18 16:00 Oxygen Flow Rate (L/min) 6 Oxygen Delivery Method Non-Rebreather Weight: 73.4 kg Body Mass Index (BMI) 23.2 Intake and Output for Last 24 Hours 01/03/18 01/04/18 01/05/18 23:59 23:59 23:59 Intake Total 305 / 305 1913 / 1913 640 / 640 Output Total 1650 / 1650 1850 / 1850 700 / 700 Balance -1345 / -1345 63 / 63 -60 / -60 Laboratory Tests Past 24 Hrs 01/05/18 01/05/18 04:30 04:30 WBC 9.3 RBC 6.26 H Hgb 12.5 L Hct 40.8 MCV 65.2 L MCH 20.0 L MCHC 30.6 L RDW 21.1 H RDW Differential 47.9 H Plt Count 238 Immature Gran % (Auto) 0.200 Neut % (Auto) 89.0 H Lymph % (Auto) 4.3 L [place] % (Auto) 6.5 Eos % (Auto) 0.0 Baso % (Auto) 0.0 Absolute Neuts (auto) 8.3 H Absolute Lymphs (auto) 0.40 L Total Counted Not Reportable Differential Comment SCANNED Hypochromasia 2+ Microcytosis 3+ Target Cells 1+ Schistocytes RARE Sodium 137 Potassium 4.8 Chloride 103 Carbon Dioxide 25.0 Anion Gap 9 BUN 49 H Creatinine 1.48 H Estim Creat Clear Calc 44.22 Est GFR (MDRD) Af Amer 60 Est GFR (MDRD) Non-Af 49 L BUN/Creatinine Ratio 33.1 H Glucose 209 H Calcium 8.4 L POC Glucose 01/05/18 01/05/18 01/05/18 16:05 11:27 06:53 POC Glucose 202 H 163 H 192 H 01/04/18 22:06 POC Glucose 189 H Medical Necessity - Tobacco Use Smoking Status: Former smoker Assessment/Plan #1 acute on chronic hypoxic respiratory failure-actual etiology unclear at this point, continue present care in ICU, patient is still on high flow oxygen, pulmonary medicine is participating in his care, his blood pressure today is overall better. #2 chronic obstructive pulmonary disease-continue present care #3 pulmonary hypertension #4 type 2 diabetes #5 cor pulmonale Code Visit Inpatient E&M: 37248 Subs Hosp L2
--- NOTE | 2018-01-05 17:41 | PCM.CONS.C ---
Problem List (1) Patent foramen ovale Status: Chronic (2) Moderate to severe pulmonary hypertension Status: Chronic (3) Hypertension Status: Chronic Qualifiers: Hypertension type: essential hypertension Qualified Code(s): I10 - Essential (primary) hypertension Reason for Consult Date of Consultation: 01/05/18 Reason for Consultation: Severe pulmonary hypertension, shortness of breath, atrial flutter, PFO History of Present Illness: The patient is a 77 year old M, with a history of severe pulmonary hypertension, severe right ventricular enlargement, unknown coronary artery disease, suppose it PFO in the past, COPD, who was admitted with shortness of breath, tachycardia, and presumed COPD exacerbation. Apparently it appeared the patient was in a sinus tachycardia and when given beta-jay therapy has slowed down enough to identify atrial flutter with variable conduction. Patient is a known history of severe pulmonary hypertension most recent echocardiogram in 2016 demonstrating an RVSP of around 90 mmHg with severe RV enlargement. The patient apparently underwent a right heart catheterization at [facility] within the last year, but he is uncertain whether he underwent left heart catheterization. At that time there was some concern about whether the patient had a patent foramen ovale, and the patient was told that this most likely contributed to his pulmonary hypertension. In addition the patient has a longtime smoker quit around 15 years ago after 1 pack per day for 40 years. He has chronic COPD is on chronic 6 L nasal cannula at home. He has known about his pulmonary hypertension over the last 5 years. Patient was started on Adcirca recently initially helped but apparently has lost its effectiveness. I was asked by Dr. Cameron to evaluate the patient for his atrial flutter. Patient denies any chest pain, angina and reports minimal lower extremity edema. He is sitting up in a chair, no acute distress but does have some conversational dyspnea. A repeat echocardiogram today demonstrates hyperdynamic LV function improvement of his RVSP from 91 down to 61 mmHg, severe RV enlargement, right pleural effusion which appears to be small. [] Past Medical History Allergies/Adverse Reactions: Allergies No Known Allergies Allergy (Verified 10/18/17 10:07) Home Medications: Ambulatory Orders Medication Instructions Recorded Albuterol IH (ProAir) [Proair Hfa] 1 - 2 puff INHALATION Q4H PRN PRN 03/04/17 Budesonide/Formoterol Fumarate 2 puff IH BID 03/04/17 [Symbicort 160-4.5 Mcg Inhaler] Calcium Carbonate/Vitamin D3 1 ea PO DAILY 03/04/17 [Calcium 600-Vit D3 800 Tab] Cinnamon Bark [Cinnamon] 500 mg PO BID 03/04/17 Furosemide [Lasix] 20 mg PO DAILY 03/04/17 Ipratropium/Albuterol Sulfate 3 ml INHALATION Q6HWA.RT 03/04/17 [Duoneb] Lisinopril [Zestril] 5 mg PO DAILY 03/04/17 Multivit-Min/FA/Lycopen/Lutein 1 ea PO DAILY 03/04/17 [Centrum Silver Men Tablet] Mv-Min/FA/Vit K/Lycop/Lut/Zeax 1 ea PO DAILY 03/04/17 [Ocuvite Eye Plus Multi Tablet] Omeprazole [Prilosec] 40 mg PO DAILY 03/04/17 Sertraline HCl [Zoloft] 50 mg PO DAILY 03/04/17 Simvastatin [Zocor] 40 mg PO QHS 03/04/17 Sodium Chloride 0.65% [[place] Nasal 2 spray NASAL BID PRN PRN #0 03/07/17 [place]] spray.btl albuterol sulfate 2.5 mg/3 mL 2.5 mg INHALATION Q4H PRN #180 ml 09/28/17 (0.083 %) solution for nebulization macitentan 10 mg tablet 10 mg PO DAILY 10/18/17 Aspirin [Aspirin, Baby] 81 mg PO DAILY@0800 01/03/18 Fluticasone 0.05% [Flonase Nasal 2 spray INTRANASAL DAILY 01/03/18 [place]] Guaifenesin [Mucinex] 1,200 mg PO BID PRN PRN 01/03/18 Lorazepam [Ativan] 0.5 mg PO DAILY 01/03/18 Melatonin/Pyridoxine HCl (B6) 1 each PO QHS 01/03/18 [Melatonin 10 mg Tablet] Mirtazapine [Mirtazapine] 7.5 mg PO QHS 01/03/18 Tadalafil [Adcirca] 40 mg PO DAILY 01/03/18 Tiotropium [place] [Spiriva] 1 cap INHALATION DAILY 01/03/18 Past Medical History (Chronic Problems): Chronic Problems (Last Reviewed 10/18/17 @ 10:07 by Yamilet Reyes) Respiratory failure (Chronic) Currently requiring 6 L of supplemental oxygen at all times, on a noninvasive ventilator for sleep Stage 1 mild COPD by GOLD classification (Chronic) FEV1 91% of predicted Depression (Chronic) Diabetes (Chronic) Lung cancer (Chronic) Pulmonary hypertension (Chronic) PASP greater than 90 mmHg Diastolic heart failure (Chronic) Sleep-related breathing disorder (Chronic) Solitary lung nodule (Chronic) Right ventricular diastolic dysfunction (Chronic) Patent foramen ovale (Chronic) PND (paroxysmal nocturnal dyspnea) (Chronic) Moderate to severe pulmonary hypertension (Chronic) Colon cancer (Chronic) COPD (chronic obstructive pulmonary disease) (Chronic) Hypertension (Chronic) Surgical History: colectomy - *Family History Paternal Family History: Family History (Last Reviewed 10/18/17 @ 10:07 by Yamilet Reyes) Mother CVA (cerebral vascular accident) Father Cancer History Items: Hypertension Smoking Status: Former smoker Review of Systems - Review of Systems General: Denies: Fever, Night Sweats, Fatigue Cardiovascular: Reports: Shortness of Breath, Shortness of Breath at Rest, Orthopnea, PND, Peripheral Edema, Palpitations. Denies: Chest Discomfort, Lightheadedness, Dizziness, Near Syncope, Syncope Respiratory: Denies: Cough, Sputum Production, Hemoptysis Gastrointestinal: Denies: Hematemesis, Hematochezia, Melena Genitourinary: Denies: Dysuria, Hematuria Skin: Denies: Rash Subjectve: Patient sitting in a chair, no acute distress, Objective: Vital Signs Temp Pulse Resp BP Pulse Ox 98 F 119 H 23 H 108/77 93 01/05/18 16:00 01/05/18 17:00 01/05/18 17:00 01/05/18 17:00 01/05/18 17:00 Oxygen Flow Rate (L/min) 6 Oxygen Delivery Method Non-Rebreather Weight: 161 lb 13.109 oz Body Mass Index (BMI) 23.2 Intake and Output for Last 24 Hours 01/03/18 01/04/18 01/05/18 23:59 23:59 23:59 Intake Total 305 / 305 1912 / 1912 640 / 640 Output Total 1650 / 1650 1850 / 1850 700 / 700 Balance -1345 / -1345 63 / 63 -60 / -60 General: Awake, Alert, Oriented x 3 HEENT: PERRL, EOMI, Sclera Non Icteric Neck: Supple, Good ROM, No Lymph Node Enlargement, Positive JVD Lungs: Clear to auscultation Cardiovascular: Irregular Rhythm, Normal S1, No Murmurs, No Rubs, No Gallops, Prominent P2 Murmur Murmur: Grade 3/6, Holosystolic Vascular: No Carotid Bruits, Normal Femoral Pulses, Normal Radial Pulses, Normal Dorsalis Pedal Pulse, Normal Posterior Tibial Pulses Abdomen: Bowel Sounds Present, Soft, Non Tender, No HSM, No Organomegaly Extremities: No Cyanosis, No Clubbing, No edema Neurological: No Focal Motor or Sensory Deficit 01/05/18 04:30: WBC 9.3, RBC 6.26 H, Hgb 12.5 L, Hct 40.8, MCV 65.2 L, MCH 20.0 L, MCHC 30.6 L, RDW 21.1 H, RDW Differential 47.9 H, Plt Count 238, Immature Gran % (Auto) 0.200, Neut % (Auto) 89.0 H, Lymph % (Auto) 4.3 L, [place] % (Auto) 6.5, Eos % (Auto) 0.0, Baso % (Auto) 0.0, Absolute Neuts (auto) 8.3 H, Total Counted Not Reportable 01/05/18 04:30: Sodium 137, Potassium 4.8, Chloride 103, Carbon Dioxide 25.0, Anion Gap 9, BUN 49 H, Creatinine 1.48 H, Est GFR (MDRD) Af Amer 60, Est GFR (MDRD) Non-Af 49 L, BUN/Creatinine Ratio 33.1 H, Glucose 209 H, Calcium 8.4 L Rhythm: EKG: Atrial flutter with variable conduction, no acute changes. ECHO: Stress Test: Cardiac Cath: PCI: CT Surgery: Holter monitor: EPS: PPM: CXR: Chest CT Scan: Assessment/Plan 1. Atrial flutter: Patient appears to present with atrial flutter which appears to be of new onset. Given the patient's severe pulmonary hypertension, atrial flutter, I would recommend anticoagulation therapy at this time with Lovenox 1 mg/kg subcu twice daily. Patient will require long-term anticoagulation going forward mostly for his atrial flutter and his severe pulmonary hypertension. I would recommend avoiding IV beta-jay therapy at this time will recommend IV Cardizem 5-10 mg IV slow push to assist with rate control and to hopefully facilitate pulmonary vasodilatation. If the patient responds well to IV Cardizem, would recommend starting him on short acting Cardizem such as 30 mill grams p.o. every 8 hours and titrating up from there. I agree with Lasix 20 mg IV for gentle diuresis. The patient's chest x-ray demonstrates bilateral pulmonary congestion versus diffuse interstitial disease. The patient's hemogram if situation deteriorates, I have a low threshold for synchronized DC cardioversion with etomidate. 2. Pulmonary hypertension: Patient appears to have pulmonary hypertension out of proportion to his COPD, and there is some concern the patient may have a PFO or ASD with concomitant left right shunting which may have contributed to the patient's right-sided volume and pressure overload. I am pleased to see that his pulmonary pressures have markedly improved since September 2016 with the administration of Adcirca and OPSUMIT. Recommend gentle diuresis and avoid aggressive diuresis as he is most likely preload dependent and would most likely drop his blood pressure. Again would recommend full dose long-term anticoagulation for both atrial flutter as well as severe pulmonary hypertension. 3. Discussed with Dr. Cameron. Thank you very much for the opportunity to participate in the cardiac care of your patient. Consultation time 45 minutes. Code Visit Inpatient E&M: 11527 Init Hosp L3
[2018-01-05] MEDS: dilTIAZem 25 MG/5 ML Vial 5 MG IV BOLUS ×2 (17:50→23:24)
[2018-01-05] MEDS: Enoxaparin 80 MG/0.8 ML Syringe 70 MG SC (17:52)
[2018-01-05] MEDS: Atorvastatin Calcium 20 MG Tablet PO (21:16)
[2018-01-05] MEDS: Mirtazapine 15 MG Tablet 7.5 MG PO (21:18)
[2018-01-05 21:31] LABS: Bedside Glucose 212 mg/dL (70-110)
[2018-01-06] VITALS (36 sets, daily range): BP systolic 89–130; BP diastolic 62–88; PULSE 98–121; RESP 12–24; TEMP 36.4–36.9; O2SAT 85–97
--- NOTE | 2018-01-06 03:23 | EKG12_ITS ---
Test Reason : EKG CHANGE Blood Pressure : / mmHG Vent. Rate : 121 BPM Atrial Rate : 242 BPM P-R Int : 000 ms QRS Dur : 086 ms QT Int : 400 ms P-R-T Axes : 258 091 004 degrees QTc Int : 568 ms Atrial flutter Indeterminate axis ST & T wave abnormality, consider anterior ischemia Abnormal ECG When compared with ECG of 05-JAN-2018 10:28, MANUAL COMPARISON REQUIRED, DATA IS UNCONFIRMED Confirmed by NATALIA MCRAE, NALINI ([id number]), editorial intern MIGUEL A FOLEY ([id number]) on 01/10/2018 1:50:15 PM Referred By: ARASH Confirmed By:NALINI FISHER MD
[2018-01-06 03:44] LABS: Absolute Lymphocyte Count 0.38 X10^3/ul (0.83-4.51); Hematocrit 39.9 % (40-54); Lymphocyte # 0.38 X10^3/ul (4.0); Lymphocyte % 3.5 % (19-41); Mean Corp Hgb Conc 32.6 g/gl (32-36); Mean Corpuscular Hgb 20.5 pg (27.0-32.0); Mean Corpuscular Volume 62.9 fL (80-94); Mean Platelet Vol. 9.4 fl (6.2-12.0); Monocyte# 0.61 X10^3/uL; Monocyte% 5.6 % (0-10); Neutrophil # 9.95 X10^3/uL (2.7-7.7); Neutrophil % 90.8 % (47-70); Platelet Count 258 K/mm3 (150-450); RBC Distribution Width CV 22.5 % (11.6-14.6); Red Blood Count 6.34 M/mm3 (4.6-6.2)
[2018-01-06 03:45] LABS: Differential Indicated SCAN CRITERIA MET; POSITIVE COUNT NO; POSITIVE DIFFERENTIAL YES; POSITIVE MORPHOLOGY YES
[2018-01-06 03:55] LABS: Anion Gap 10 (5-15); BUN 45 mg/dL (7-18); BUN/Creat Ratio 37.2 RATIO (10-20); Calcium,Total 8.5 mg/dL (8.5-10.1); Chloride 103 mmol/L (98-107); Creatinine, Serum 1.21 mg/dL (0.70-1.30); EST Glomerular Filtration Rate 62 mL/min (>60); Est Glom Filt Rate - Afr Amer 75 mL/min (>60); Estimated Creatinine Clearance 54.47 ml/min; Glucose 166 mg/dL (74-106); Potassium 4.7 mmol/L (3.5-5.1); Sodium Level 137 mmol/L (136-145)
[2018-01-06 04:11] LABS: Anisocytosis 3+; Differential Comment SCANNED; Hypochromasia 2+; Microcytosis 3+; Target Cells 2+
[2018-01-06] MEDS: dilTIAZem 25 MG/5 ML Vial 5 MG IV BOLUS (06:19)
[2018-01-06] MEDS: 0.9% NaCl Peripheral Flush Adult/Peds IV ×4 (06:19→17:11)
[2018-01-06] MEDS: CHLORHEXIDINE GLUC 2% CLOTH 1 EACH TOWELETTE TOPICAL (06:19)
[2018-01-06] MEDS: Enoxaparin 80 MG/0.8 ML Syringe 70 MG SC ×2 (06:19→17:11)
[2018-01-06] MEDS: Ipratropium/Albuterol Sulfate 3 ML AMPUL.NEB INHALATION ×3 (06:38→19:03)
--- NOTE | 2018-01-06 07:07 | PCM.PN.INT ---
Subjective: Patient did okay overnight. Patient continues to require significant amounts of supplemental oxygen to maintain saturations. Patient did use positive pressure ventilation overnight and nursing reports better saturations. Patient has been receiving Cardizem, but nursing reports little change in heart rate. Patient denies any chest pain, but does report dyspnea with minimal exertion. Objective: Echocardiogram was personally reviewed. This showed significant RV dilatation, biatrial severe enlargement, EF of 75% and dilated inferior vena cava. Compared to 10/15/2016, RVSP improved from 91-->61. (This was before Adcirca and Opsumit initiation) General: Alert, Oriented x3, Cooperative, No apparent distress - On positive pressure, - - Appears older than stated age HEENT: Atraumatic, PERRLA, EOMI, Normocephalic, - - Scleral injection without icterus Oral: Moist Mucosa, No Gingival or Mucosal Lesions/ Ulcerations Neck: Supple, No Nodes, Trachea Midline, JVD, Right Lungs: No rhonchi, No wheeze, Diminished, Rales, - - Increased AP diameter. Cardiovascular: Regular rate, Normal S1, Normal S2, Murmur, No rub noted, No Gallop, Tachycardic Abdomen: Bowel Sounds Present, Soft, Non Tender, Non-Distended Extremities: No cyanosis, Capillary Refill Less than 3 Seconds, Clubbing, Edema Skin: - - No significant change from previous Musculoskeletal: No Tenderness to Palpation of Joints or Extremities Lymphatic: No Cervical, Supraclavicular, or Inguinal Adenopathy Neurological: Cranial nerves II-XII grossly intact, Neuro grossly intact, Motor Exam 5/5 strength throughout Psych/Mental Status: Alert and oriented to time, place, person, mood and affect Vital Signs Temp Pulse Resp BP Pulse Ox 36.6 C 120 H 16 108/70 93 01/06/18 06:00 01/06/18 06:00 01/06/18 06:00 01/06/18 06:00 01/06/18 06:00 Oxygen Flow Rate (L/min) 6 Oxygen Delivery Method Non-Rebreather Weight: 74.4 kg Body Mass Index (BMI) 23.2 Intake and Output for Last 24 Hours 01/04/18 01/05/18 01/06/18 23:59 23:59 23:59 Intake Total 1912 / 1912 1500 / 1500 Output Total 1850 / 1850 1950 / 1950 450 / 450 Balance 63 / 63 -450 / -450 -450 / -450 Labs (Last 48 Hours) 01/04/18 01/04/18 01/04/18 07:37 11:23 16:30 WBC RBC Hgb Hct MCV MCH MCHC RDW RDW Differential Plt Count MPV Immature Gran % (Auto) Neut % (Auto) Lymph % (Auto) [place] % (Auto) Eos % (Auto) Baso % (Auto) Absolute Neuts (auto) Absolute Lymphs (auto) Total Counted Differential Comment Hypochromasia Anisocytosis Microcytosis Target Cells Schistocytes Sodium Potassium Chloride Carbon Dioxide Anion Gap BUN Creatinine Estim Creat Clear Calc Est GFR (MDRD) Af Amer Est GFR (MDRD) Non-Af BUN/Creatinine Ratio Glucose Calcium POC Glucose 152 H 167 H 214 H 01/04/18 01/05/18 01/05/18 22:06 04:30 04:30 WBC 9.3 RBC 6.26 H Hgb 12.5 L Hct 40.8 MCV 65.2 L MCH 20.0 L MCHC 30.6 L RDW 21.1 H RDW Differential 47.9 H Plt Count 238 MPV Immature Gran % (Auto) 0.200 Neut % (Auto) 89.0 H Lymph % (Auto) 4.3 L [place] % (Auto) 6.5 Eos % (Auto) 0.0 Baso % (Auto) 0.0 Absolute Neuts (auto) 8.3 H Absolute Lymphs (auto) 0.40 L Total Counted Not Reportable Differential Comment SCANNED Hypochromasia 2+ Anisocytosis Microcytosis 3+ Target Cells 1+ Schistocytes RARE Sodium 137 Potassium 4.8 Chloride 103 Carbon Dioxide 25.0 Anion Gap 9 BUN 49 H Creatinine 1.48 H Estim Creat Clear Calc 44.22 Est GFR (MDRD) Af Amer 60 Est GFR (MDRD) Non-Af 49 L BUN/Creatinine Ratio 33.1 H Glucose 209 H Calcium 8.4 L POC Glucose 189 H 01/05/18 01/05/18 01/05/18 06:53 11:27 16:05 WBC RBC Hgb Hct MCV MCH MCHC RDW RDW Differential Plt Count MPV Immature Gran % (Auto) Neut % (Auto) Lymph % (Auto) [place] % (Auto) Eos % (Auto) Baso % (Auto) Absolute Neuts (auto) Absolute Lymphs (auto) Total Counted Differential Comment Hypochromasia Anisocytosis Microcytosis Target Cells Schistocytes Sodium Potassium Chloride Carbon Dioxide Anion Gap BUN Creatinine Estim Creat Clear Calc Est GFR (MDRD) Af Amer Est GFR (MDRD) Non-Af BUN/Creatinine Ratio Glucose Calcium POC Glucose 192 H 163 H 202 H 01/05/18 01/06/18 01/06/18 21:23 03:35 03:35 WBC 11.0 RBC 6.34 H Hgb 13.0 Hct 39.9 L MCV 62.9 L MCH 20.5 L MCHC 32.6 RDW 22.5 H RDW Differential 49.0 H Plt Count 258 MPV 9.4 Immature Gran % (Auto) 0.100 Neut % (Auto) 90.8 H Lymph % (Auto) 3.5 L [place] % (Auto) 5.6 Eos % (Auto) 0.0 Baso % (Auto) 0.0 Absolute Neuts (auto) 10.0 H Absolute Lymphs (auto) 0.38 L Total Counted Not Reportable Differential Comment SCANNED Hypochromasia 2+ Anisocytosis 3+ Microcytosis 3+ Target Cells 2+ Schistocytes Sodium 137 Potassium 4.7 Chloride 103 Carbon Dioxide 24.0 Anion Gap 10 BUN 45 H Creatinine 1.21 Estim Creat Clear Calc 54.47 Est GFR (MDRD) Af Amer 75 Est GFR (MDRD) Non-Af 62 BUN/Creatinine Ratio 37.2 H Glucose 166 H Calcium 8.5 POC Glucose 212 H Medical Necessity - Tobacco Use Smoking Status: Former smoker Assessment/Plan RECOMMENDATIONS: 1. Supplemental oxygen to keep saturations 88% or greater 2. BiPAP breaks as tolerated 3. Cautious diuresis with intermittent Lasix 4. Wean systemic steroids 5. Continue home pulmonary hypertension medications 6. Await cardiology recommendations IMPRESSIONS: 1. Acute on chronic hypoxic respiratory failure In retrospect, patient's initial presentation may be secondary to the development of new onset atrial flutter. This was not recognized initially secondary to fast heart rate, but with slowing has been noted on EKG. Echocardiogram does show improvement in pulmonary artery pressures. However, this echocardiogram was prior to initiation of pulmonary hypertension medications and patient reports no previous follow-up while on medications for comparison. Patient was placed on full anticoagulation yesterday. Doubt patient would be able to tolerate a MICHELLE at this time given oxygen tensions. 2. Known COPD and pulmonary hypertension Patient has been seen by pulmonary hypertension specialist at [facility]. Patient should continue with baseline medications for pulmonary hypertension. Will attempt diuresis using intermittent Lasix given marginal blood pressures. Currently on aerosols. No Pulmicort secondary to systemic steroids. 3. Cor pulmonale secondary to severe pulmonary hypertension/new onset atrial flutter Cautious use of supplemental IV fluids. Elevated BNP and marginal troponin likely secondary to right heart strain, not left heart strain. Would not recommend significant peripheral IV fluids if possible. Does have significantly enlarged atria. It is unclear if patient maintain normal sinus rhythm if cardioverted. 4. Allergic rhinitis/postnasal drip syndrome Continue Flonase 2 sprays in each nostril daily. 5. Severe debility/hyperlipidemia/GERD/diabetes Complicates care, management, recovery and prognosis. Patient on sliding scale insulin coverage. 6. Lung nodule Patient does have a history of cancer in the past. He is aware of the lung nodule, but given comorbid factors, biopsy is likely not appropriate and can lead to significant complications. Current perception is that the risk is greater than benefit in patients morbidity and mortality is more closely linked to his severe pulmonary hypertension and emphysema. 7. CODE STATUS: DNR CCA without intubation TIME: 34 minutes critical care time spent addressing patient's acute on chronic hypoxic respiratory failure, cor pulmonale, elevated troponin, review of all data and collaboration with care team (5:30 AM to 6:30 AM) Code Visit 9xxxx: [id number] Critical care first hour
[2018-01-06 07:20] LABS: Bedside Glucose 182 mg/dL (70-110)
[2018-01-06] MEDS: Aspirin 81 MG TAB.CHEW PO (08:11)
[2018-01-06] MEDS: Calcium Carb/Vitamin D 1 TABLET Tablet PO (08:11)
[2018-01-06] MEDS: Multivitamins,Ther W-Minerals Tablet 1 TABLET PO (08:11)
[2018-01-06] MEDS: LORazepam 0.5 MG Tablet PO (09:35)
[2018-01-06] MEDS: Glucerna Shake 120 ML LIQUID PO ×4 (09:36→21:10)
[2018-01-06] MEDS: MACITENTAN 10 MG PO (09:40)
[2018-01-06] MEDS: TADALAFIL 20 MG TABLET 40 MG PO (09:40)
[2018-01-06] MEDS: Fluticasone 0.05% 1 SPRAY NASAL.SRY 2 SPRAY NASAL (09:41)
[2018-01-06] MEDS: Senna/Docusate Sodium 1 Tablet PO ×2 (09:42→21:06)
[2018-01-06] MEDS: Sertraline 50 MG Tablet PO (09:42)
[2018-01-06] MEDS: Pantoprazole Sodium 40 MG Tablet PO (09:42)
--- NOTE | 2018-01-06 10:08 | PN.CARD_ITS ---
Subjectve: Patient seen and examined this morning, in bed sitting up, appears to be improved from a respiratory standpoint. Still in atrial flutter with 2-1 conduction, unresponsive to IV Cardizem. Echocardiogram yesterday demonstrated hyperdynamic LV with an EF around 65-75%, severely enlarged right ventricle, with severe tricuspid regurgitation and RVSP estimated to be around 61 mmHg. This is decreased from his previous echo at which time his RVSP was estimated to be 90 mill meters of mercury. This appears to demonstrate that his Adcirca and OPSUMIT appears to be improving his pulmonary pressures. Patient denies any chest pain. Telemetry negative other than atrial flutter. Objective: Vital Signs Temp Pulse Resp BP Pulse Ox 97.5 F L 121 H 18 112/71 94 01/06/18 08:00 01/06/18 08:00 01/06/18 08:00 01/06/18 08:00 01/06/18 08:00 Oxygen Flow Rate (L/min) 10 Oxygen Delivery Method Non-Rebreather Weight: 164 lb 0.383 oz Body Mass Index (BMI) 23.2 Intake and Output for Last 24 Hours 01/04/18 01/05/18 01/06/18 23:59 23:59 23:59 Intake Total 1912 / 1912 1500 / 1500 Output Total 1850 / 1850 1950 / 1950 450 / 450 Balance 63 / 63 -450 / -450 -450 / -450 General: Awake, Alert, Oriented x 3 HEENT: PERRL, EOMI, Sclera Non Icteric Neck: Supple, Good ROM, No Lymph Node Enlargement Lungs: Clear to auscultation Cardiovascular: Regular Rhythm, Normal S1, Normal S2, No Rubs, No Gallops Murmur Murmur: Grade 3/6, Holosystolic Vascular: No Carotid Bruits, Normal Femoral Pulses, Normal Radial Pulses, Normal Dorsalis Pedal Pulse, Normal Posterior Tibial Pulses Abdomen: Bowel Sounds Present, Soft, Non Tender, No HSM, No Organomegaly Extremities: No Cyanosis, No Clubbing, No edema Neurological: No Focal Motor or Sensory Deficit 01/06/18 03:35: WBC 11.0, RBC 6.34 H, Hgb 13.0, Hct 39.9 L, MCV 62.9 L, MCH 20.5 L, MCHC 32.6, RDW 22.5 H, RDW Differential 49.0 H, Plt Count 258, MPV 9.4, Immature Gran % (Auto) 0.100, Neut % (Auto) 90.8 H, Lymph % (Auto) 3.5 L, [place] % (Auto) 5.6, Eos % (Auto) 0.0, Baso % (Auto) 0.0, Absolute Neuts (auto) 10.0 H , Total Counted Not Reportable 01/06/18 03:35: Sodium 137, Potassium 4.7, Chloride 103, Carbon Dioxide 24.0, Anion Gap 10, BUN 45 H, Creatinine 1.21, Est GFR (MDRD) Af Amer 75, Est GFR ( MDRD) Non-Af 62, BUN/Creatinine Ratio 37.2 H, Glucose 166 H, Calcium 8.5 Rhythm: EKG: ECHO: Stress Test: Cardiac Cath: PCI: CT Surgery: Holter monitor: EPS: PPM: CXR: Chest CT Scan: Medical Necessity - Tobacco Use Smoking Status: Former smoker Assessment/Plan 1. Atrial flutter: Patient appears to present with atrial flutter which appears to be of new onset, however I am uncertain when it started, so therefore DC cardioversion without MICHELLE guidance would be somewhat higher risk for thrombosis. Patient did not respond well to IV Cardizem some expectation is most likely will not assist us and rate controlling him. Patient did have some reduction in heart rate with IV beta-jay therapy.. Given the patient' s severe pulmonary hypertension, atrial flutter, I would recommend anticoagulation therapy at this time with Lovenox 1 mg/kg subcu twice daily. Patient will require long-term anticoagulation going forward mostly for his atrial flutter and his severe pulmonary hypertension. Recommend discontinuation of IV Cardizem as it does not appear to be working. Despite the patient's pulmonary hypertension, I believe he would benefit from resynchronization. This is not an option without a MICHELLE, and given his respiratory status, it would be very challenging to perform a MICHELLE as the patient may deteriorate and require intubation. He is currently DNR/CCA. I believe the benefits of IV amiodarone transitioning to p.o. amiodarone far outweigh the risks of any additional pulmonary damage that may be incurred over many months of amiodarone. This would also assist us with DC cardioversion at some point in the future. I do not believe the patient requires urgent cardioversion today as his blood pressure is much better controlled. Recommend loading the patient with IV amiodarone per protocol, and then transitioning him to amiodarone 40 mg p.o. twice daily for 3 days followed by 200 mg a day. The patient remains in atrial flutter, we can consider DC cardioversion in 3 weeks time assuming he is able to use either Eliquis or Xarelto. If this is not an option, and he needs Coumadin, then he will require 4 weeks prior to elective DC cardioversion with amiodarone assistance. Agree with Lasix 20 mg IV for gentle diuresis. The patient's chest x-ray demonstrates bilateral pulmonary congestion versus diffuse interstitial disease. The patient's hemogram if situation deteriorates, I have a low threshold for synchronized DC cardioversion with etomidate. In addition we can also try him on Lopressor 0.5 mg p.o. twice daily to assist with heart rate control. Patient's LV function is hyperdynamic and I do not believe he requires catheterization at this time. 2. Pulmonary hypertension: Patient appears to have pulmonary hypertension out of proportion to his COPD, and there is some concern the patient may have a PFO or ASD with concomitant left right shunting which may have contributed to the patient's right-sided volume and pressure overload. I am pleased to see that his pulmonary pressures have markedly improved since September 2016 with the administration of Adcirca and OPSUMIT. Recommend gentle diuresis and avoid aggressive diuresis as he is most likely preload dependent and would most likely drop his blood pressure. Again would recommend full dose long-term anticoagulation for both atrial flutter as well as severe pulmonary hypertension. 3. Discussed with Dr. Cameron. Thank you very much for the opportunity to participate in the cardiac care of your patient. Discussed options this morning with Dr. Cameron. Code Visit Inpatient E&M: 22532 Subs Hosp L2
[2018-01-06] MEDS: Metoprolol Tartrate 25 MG Tablet 12.5 MG PO ×2 (10:37→21:07)
--- NOTE | 2018-01-06 12:02 | CASEMGMT ---
Social Work Reviewed PT notes and met with pt and in room to review d/c plan. Pt states if he needs placement he would prefer TCU however, pt would prefer to return home and pt does not want to make a decision at this time. SW informed that a bed may be available on Tuesday, but precert will need to be obtained from insurance prior to admission to SNF. SW will continue to follow. FARZAD Bernard
[2018-01-06 12:16] LABS: Bedside Glucose 198 mg/dL (70-110)
--- NOTE | 2018-01-06 14:15 | CHAPLAIN ---
Type of Pastoral Visit ___ Initial Visit _x__ Follow-up Visit ___ On-call Visit ___ General Patient Visit ___ Spiritual Assessment ___ Family Conference ___ Bereavement ___ Rapid Response ___ Code Blue ___ Other (describe below) Pastoral Care Referral From _x__ Patient ___ Family ___ Nurse ___ Physician ___ Rn Geriatric ___ Compressed Air Pile Driver Operator ___ Other (describe below) Sacrament/Intervention _x__ Active listening ___ Anointing ___ Latter-Day ___ Bereavement ___ Communion ___ Radha exploration ___ ___ Life review _x__ Prayer ___ Reconciliation ___ Sacrament of Sick _x__ Supportive presence ___ Wedding ___ Other (describe below) Pastoral Comments patient indicates that he is doing ok but that more health issues have been discovered; pt says he is handling it all fine but welcomes the support and a prayer; pt says that he is getting visitors and lots of support from family and friends
[2018-01-06 16:11] LABS: Bedside Glucose 193 mg/dL (70-110)
--- NOTE | 2018-01-06 17:07 | PCM.PROGNOTE ---
Subjective: Patient seen and examined today, he remains on 100% O2, I talked briefly with his today he was in the room. Patient was started on amiodarone drip today for atrial flutter. - Physical Exam General: Alert, Oriented x3, Cooperative, No apparent distress, Well developed HEENT: Atraumatic, PERRLA, EOMI, Normocephalic Oral: Moist Mucosa Neck: Supple, No JVD, No Nuchal Rigidity, Trachea Midline, Thyroid Normal Size and Texture Lungs: Clear to auscultation, Normal air movement, No rhonchi, No wheeze, No rales Cardiovascular: No murmurs, PMI Normal, Irregular Rate, No rub noted, No Gallop Abdomen: Bowel Sounds Present, Soft, Non Tender, Non-Distended, No hernias noted Extremities: No edema, Capillary Refill Less than 3 Seconds Skin: No rashes, No breakdown Musculoskeletal: No Tenderness to Palpation of Joints or Extremities Neurological: Cranial nerves II-XII grossly intact, Neuro grossly intact, Sensory exam intact to light touch and pain, Coordination normal Psych/Mental Status: Normal Affect, Appropriate, Alert and oriented to time, place, person, mood and affect Vital Signs Temp Pulse Resp BP Pulse Ox 98.2 F 114 H 17 100/71 89 01/06/18 14:00 01/06/18 15:48 01/06/18 15:00 01/06/18 15:00 01/06/18 15:00 Oxygen Flow Rate (L/min) 10 Oxygen Delivery Method Non-Rebreather Weight: 74.4 kg Body Mass Index (BMI) 23.2 Intake and Output for Last 24 Hours 01/04/18 01/05/18 01/06/18 23:59 23:59 23:59 Intake Total 1913 / 1913 1500 / 1500 620 / 620 Output Total 1850 / 1850 1950 / 1950 800 / 800 Balance 63 / 63 -450 / -450 -180 / -180 Laboratory Tests Past 24 Hrs 01/06/18 01/06/18 03:35 03:35 WBC 11.0 RBC 6.34 H Hgb 13.0 Hct 39.9 L MCV 62.9 L MCH 20.5 L MCHC 32.6 RDW 22.5 H RDW Differential 49.0 H Plt Count 258 MPV 9.4 Immature Gran % (Auto) 0.100 Neut % (Auto) 90.8 H Lymph % (Auto) 3.5 L [place] % (Auto) 5.6 Eos % (Auto) 0.0 Baso % (Auto) 0.0 Absolute Neuts (auto) 10.0 H Absolute Lymphs (auto) 0.38 L Total Counted Not Reportable Differential Comment SCANNED Hypochromasia 2+ Anisocytosis 3+ Microcytosis 3+ Target Cells 2+ Sodium 137 Potassium 4.7 Chloride 103 Carbon Dioxide 24.0 Anion Gap 10 BUN 45 H Creatinine 1.21 Estim Creat Clear Calc 54.47 Est GFR (MDRD) Af Amer 75 Est GFR (MDRD) Non-Af 62 BUN/Creatinine Ratio 37.2 H Glucose 166 H Calcium 8.5 POC Glucose 01/06/18 01/06/18 01/06/18 16:04 12:04 06:26 POC Glucose 193 H 198 H 182 H 01/05/18 21:23 POC Glucose 212 H Medical Necessity - Tobacco Use Smoking Status: Former smoker Assessment/Plan #1 acute on chronic hypoxic respiratory failure-actual etiology unclear at this point, continue present care in ICU, patient is still on high flow oxygen, pulmonary medicine is participating in his care, I will order repeat chest x-ray in the morning #2 chronic obstructive pulmonary disease-continue present care #3 pulmonary hypertension #4 type 2 diabetes #5 cor pulmonale #6 atrial flutter-patient now on amiodarone IV, cardiology participating in his care
[2018-01-06] MEDS: Furosemide 20 MG/2 ML VIAL IV (17:11)
[2018-01-06] MEDS: MELATONIN 10 MG TABLET PO (21:06)
[2018-01-06] MEDS: Atorvastatin Calcium 20 MG Tablet PO (21:06)
[2018-01-06] MEDS: Mirtazapine 15 MG Tablet 7.5 MG PO (21:08)
[2018-01-06 21:21] LABS: Bedside Glucose 162 mg/dL (70-110)
[2018-01-07] VITALS (37 sets, daily range): BP systolic 87–122; BP diastolic 57–89; PULSE 73–112; RESP 12–23; TEMP 36.4–37; O2SAT 84–94
[2018-01-07 04:12] LABS: Anion Gap 10 (5-15); BUN 51 mg/dL (7-18); BUN/Creat Ratio 38.3 RATIO (10-20); Calcium,Total 8.2 mg/dL (8.5-10.1); Chloride 104 mmol/L (98-107); Creatinine, Serum 1.33 mg/dL (0.70-1.30); EST Glomerular Filtration Rate 56 mL/min (>60); Est Glom Filt Rate - Afr Amer 67 mL/min (>60); Estimated Creatinine Clearance 49.55 ml/min; Glucose 187 mg/dL (74-106); Potassium 4.3 mmol/L (3.5-5.1); Sodium Level 138 mmol/L (136-145)
[2018-01-07] MEDS: 0.9% NaCl Peripheral Flush Adult/Peds IV ×2 (04:48→21:18)
[2018-01-07] MEDS: Enoxaparin 80 MG/0.8 ML Syringe 70 MG SC (06:32)
[2018-01-07] MEDS: Ipratropium/Albuterol Sulfate 3 ML AMPUL.NEB INHALATION ×2 (06:41→18:15)
[2018-01-07 07:20] LABS: Bedside Glucose 157 mg/dL (70-110)
[2018-01-07] MEDS: Calcium Carb/Vitamin D 1 TABLET Tablet PO (08:34)
[2018-01-07] MEDS: Multivitamins,Ther W-Minerals Tablet 1 TABLET PO (08:34)
[2018-01-07] MEDS: Aspirin 81 MG TAB.CHEW PO (08:34)
[2018-01-07] MEDS: CHLORHEXIDINE GLUC 2% CLOTH 1 EACH TOWELETTE TOPICAL (08:37)
[2018-01-07] MEDS: LORazepam 0.5 MG Tablet PO (08:37)
[2018-01-07] MEDS: Fluticasone 0.05% 1 SPRAY NASAL.SRY 2 SPRAY NASAL (08:38)
[2018-01-07] MEDS: TADALAFIL 20 MG TABLET 40 MG PO (08:38)
[2018-01-07] MEDS: Metoprolol Tartrate 25 MG Tablet 12.5 MG PO (08:41)
[2018-01-07] MEDS: Glucerna Shake 120 ML LIQUID PO ×4 (08:41→21:13)
[2018-01-07] MEDS: MACITENTAN 10 MG PO (08:42)
[2018-01-07] MEDS: Pantoprazole Sodium 40 MG Tablet PO (08:43)
[2018-01-07] MEDS: Senna/Docusate Sodium 1 Tablet PO ×2 (08:43→21:07)
[2018-01-07] MEDS: Sertraline 50 MG Tablet PO (08:44)
--- NOTE | 2018-01-07 09:24 | PCM.PN.CARD ---
Subjectve: Patient seen and evaluated. Appears to be doing somewhat better. Sitting in chair. On oxygen still tachycardic with a heart rate of 112. Objective: Vital Signs Temp Pulse Resp BP Pulse Ox 97.6 F L 96 15 112/76 94 01/07/18 08:00 01/07/18 08:41 01/07/18 08:00 01/07/18 08:41 01/07/18 08:00 Oxygen Flow Rate (L/min) 15 Oxygen Delivery Method Non-Rebreather Weight: 165 lb 2.02 oz Body Mass Index (BMI) 23.2 Intake and Output for Last 24 Hours 01/05/18 01/06/18 01/07/18 23:59 23:59 23:59 Intake Total 1500 / 1500 1440 / 1440 315 / 315 Output Total 1950 / 1949 250 / 250 Balance -450 / -450 -610 / -610 65 / 65 General: Awake, Alert, Oriented x 3, Ill Appearing HEENT: PERRL, EOMI, Sclera Non Icteric Neck: Supple, Good ROM, No Lymph Node Enlargement Lungs: Clear to auscultation Cardiovascular: Regular Rhythm, Normal S1, Normal S2, No Murmurs, No Rubs, No Gallops Vascular: No Carotid Bruits, Normal Femoral Pulses, Normal Radial Pulses, Normal Dorsalis Pedal Pulse, Normal Posterior Tibial Pulses Abdomen: Bowel Sounds Present, Soft, Non Tender, No HSM, No Organomegaly Extremities: No Cyanosis, No Clubbing, No edema Neurological: No Focal Motor or Sensory Deficit Psych/Mental Status: Appropriate 01/07/18 03:50: Sodium 138, Potassium 4.3, Chloride 104, Carbon Dioxide 24.0, Anion Gap 10, BUN 51 H, Creatinine 1.33 H, Est GFR (MDRD) Af Amer 67, Est GFR (MDRD) Non-Af 56 L, BUN/Creatinine Ratio 38.3 H, Glucose 187 H, Calcium 8.2 L Rhythm: EKG: Atrial flutter with a 2-1 heart block. Medical Necessity - Tobacco Use Smoking Status: Former smoker Assessment/Plan 1. Atrial flutter: Patient appears to present with atrial flutter which appears to be of new onset, however I am uncertain when it started, so therefore DC cardioversion without MICHELLE guidance would be somewhat higher risk for thrombosis. Patient did not respond well to IV Cardizem some expectation is most likely will not assist us and rate controlling him. Patient did have some reduction in heart rate with IV beta-jay therapy.. Given the patient's severe pulmonary hypertension, atrial flutter, I would recommend anticoagulation therapy at this time with Eliquis. Patient will require long-term anticoagulation going forward mostly for his atrial flutter and his severe pulmonary hypertension. We will also start him on metoprolol 25 mg twice a day Eliquis 5 mg twice a day Amiodarone 400 mg twice a day for 72 hours then 200 mg twice a day for 2 weeks then 200 mg daily. Cardioversion in 3-4 weeks. 2. Pulmonary hypertension: Patient appears to have pulmonary hypertension out of proportion to his COPD, and there is some concern the patient may have a PFO or ASD with concomitant left right shunting which may have contributed to the patient's right-sided volume and pressure overload. I am pleased to see that his pulmonary pressures have markedly improved since September 2016 with the administration of Adcirca and OPSUMIT. Recommend gentle diuresis and avoid aggressive diuresis as he is most likely preload dependent and would most likely drop his blood pressure. Again would recommend full dose long-term anticoagulation for both atrial flutter as well as severe pulmonary hypertension. Thank you for allowing me to participate in the care of your patient. Please don't hesitate to call if any issues arise
--- NOTE | 2018-01-07 09:29 | PN.CARD_ITS ---
Subjectve: Patient seen and evaluated. Appears to be doing somewhat better. Sitting in chair. On oxygen still tachycardic with a heart rate of 112. Objective: Vital Signs Temp Pulse Resp BP Pulse Ox 97.6 F L 96 15 112/76 94 01/07/18 08:00 01/07/18 08:41 01/07/18 08:00 01/07/18 08:41 01/07/18 08:00 Oxygen Flow Rate (L/min) 15 Oxygen Delivery Method Non-Rebreather Weight: 165 lb 2.02 oz Body Mass Index (BMI) 23.2 Intake and Output for Last 24 Hours 01/05/18 01/06/18 01/07/18 23:59 23:59 23:59 Intake Total 1500 / 1500 1440 / 1440 315 / 315 Output Total 1950 / 1949 250 / 250 Balance -450 / -450 -610 / -610 65 / 65 General: Awake, Alert, Oriented x 3, Ill Appearing HEENT: PERRL, EOMI, Sclera Non Icteric Neck: Supple, Good ROM, No Lymph Node Enlargement Lungs: Clear to auscultation Cardiovascular: Regular Rhythm, Normal S1, Normal S2, No Murmurs, No Rubs, No Gallops Vascular: No Carotid Bruits, Normal Femoral Pulses, Normal Radial Pulses, Normal Dorsalis Pedal Pulse, Normal Posterior Tibial Pulses Abdomen: Bowel Sounds Present, Soft, Non Tender, No HSM, No Organomegaly Extremities: No Cyanosis, No Clubbing, No edema Neurological: No Focal Motor or Sensory Deficit Psych/Mental Status: Appropriate 01/07/18 03:50: Sodium 138, Potassium 4.3, Chloride 104, Carbon Dioxide 24.0, Anion Gap 10, BUN 51 H, Creatinine 1.33 H, Est GFR (MDRD) Af Amer 67, Est GFR ( MDRD) Non-Af 56 L, BUN/Creatinine Ratio 38.3 H, Glucose 187 H, Calcium 8.2 L Rhythm: EKG: Atrial flutter with a 2-1 heart block. Medical Necessity - Tobacco Use Smoking Status: Former smoker Assessment/Plan 1. Atrial flutter: Patient appears to present with atrial flutter which appears to be of new onset, however I am uncertain when it started, so therefore DC cardioversion without MICHELLE guidance would be somewhat higher risk for thrombosis. Patient did not respond well to IV Cardizem some expectation is most likely will not assist us and rate controlling him. Patient did have some reduction in heart rate with IV beta-jay therapy.. Given the patient' s severe pulmonary hypertension, atrial flutter, I would recommend anticoagulation therapy at this time with Eliquis. Patient will require long- term anticoagulation going forward mostly for his atrial flutter and his severe pulmonary hypertension. We will also start him on metoprolol 25 mg twice a day Eliquis 5 mg twice a day Amiodarone 400 mg twice a day for 72 hours then 200 mg twice a day for 2 weeks then 200 mg daily. Cardioversion in 3-4 weeks. 2. Pulmonary hypertension: Patient appears to have pulmonary hypertension out of proportion to his COPD, and there is some concern the patient may have a PFO or ASD with concomitant left right shunting which may have contributed to the patient's right-sided volume and pressure overload. I am pleased to see that his pulmonary pressures have markedly improved since September 2016 with the administration of Adcirca and OPSUMIT. Recommend gentle diuresis and avoid aggressive diuresis as he is most likely preload dependent and would most likely drop his blood pressure. Again would recommend full dose long-term anticoagulation for both atrial flutter as well as severe pulmonary hypertension. Thank you for allowing me to participate in the care of your patient. Please don't hesitate to call if any issues arise
--- NOTE | 2018-01-07 09:58 | PN_ITS ---
Subjective: Patient did well overnight. No acute issues were reported. Patient continues to desaturate with minimal exertion. Patient with no complaints outside of dyspnea on exertion at this time. Patient is denying any chest pain. Patient did tolerate positive pressure ventilation overnight. Patient had a bowel movement this morning. General: Alert, Oriented x3, Cooperative, - - Mild conversational dyspnea. Appears older than stated age. HEENT: Atraumatic, PERRLA, EOMI, Normocephalic, - - Right scleral injection without icterus Oral: Moist Mucosa, No Gingival or Mucosal Lesions/ Ulcerations Neck: Supple, No Nodes, Trachea Midline, JVD, Right Lungs: No rhonchi, No wheeze, No rales, Diminished, - - Symmetric expansion. No dullness to percussion. Cardiovascular: Normal S1, Normal S2, Irregular Rate, Murmur, No rub noted, No Gallop Abdomen: Bowel Sounds Present, Soft, Non Tender, Non-Distended Extremities: No cyanosis, Capillary Refill Less than 3 Seconds, Clubbing, Edema Skin: - - No significant change compared to previous Musculoskeletal: No Tenderness to Palpation of Joints or Extremities Lymphatic: No Cervical, Supraclavicular, or Inguinal Adenopathy Neurological: Cranial nerves II-XII grossly intact, Neuro grossly intact, Motor Exam 5/5 strength throughout Psych/Mental Status: Alert and oriented to time, place, person, mood and affect Vital Signs Temp Pulse Resp BP Pulse Ox 36.4 C L 90 21 H 101/67 92 01/07/18 09:00 01/07/18 09:00 01/07/18 09:00 01/07/18 09:00 01/07/18 09:00 Oxygen Flow Rate (L/min) 10 Oxygen Delivery Method Non-Rebreather Weight: 74.9 kg Body Mass Index (BMI) 23.2 Intake and Output for Last 24 Hours 01/05/18 01/06/18 01/07/18 23:59 23:59 23:59 Intake Total 1500 / 1500 1440 / 1440 315 / 315 Output Total 1950 / 1950 2049 / 2049 250 / 250 Balance -450 / -450 -610 / -610 65 / 65 Labs (Last 48 Hours) 01/05/18 01/05/18 01/05/18 11:27 16:05 21:23 WBC RBC Hgb Hct MCV MCH MCHC RDW RDW Differential Plt Count MPV Immature Gran % (Auto) Neut % (Auto) Lymph % (Auto) [place] % (Auto) Eos % (Auto) Baso % (Auto) Absolute Neuts (auto) Absolute Lymphs (auto) Total Counted Differential Comment Hypochromasia Anisocytosis Microcytosis Target Cells Sodium Potassium Chloride Carbon Dioxide Anion Gap BUN Creatinine Estim Creat Clear Calc Est GFR (MDRD) Af Amer Est GFR (MDRD) Non-Af BUN/Creatinine Ratio Glucose Calcium POC Glucose 163 H 202 H 212 H 01/06/18 01/06/18 01/06/18 03:35 03:35 06:26 WBC 11.0 RBC 6.34 H Hgb 13.0 Hct 39.9 L MCV 62.9 L MCH 20.5 L MCHC 32.6 RDW 22.5 H RDW Differential 49.0 H Plt Count 258 MPV 9.4 Immature Gran % (Auto) 0.100 Neut % (Auto) 90.8 H Lymph % (Auto) 3.5 L [place] % (Auto) 5.6 Eos % (Auto) 0.0 Baso % (Auto) 0.0 Absolute Neuts (auto) 10.0 H Absolute Lymphs (auto) 0.38 L Total Counted Not Reportable Differential Comment SCANNED Hypochromasia 2+ Anisocytosis 3+ Microcytosis 3+ Target Cells 2+ Sodium 137 Potassium 4.7 Chloride 103 Carbon Dioxide 24.0 Anion Gap 10 BUN 45 H Creatinine 1.21 Estim Creat Clear Calc 54.47 Est GFR (MDRD) Af Amer 75 Est GFR (MDRD) Non-Af 62 BUN/Creatinine Ratio 37.2 H Glucose 166 H Calcium 8.5 POC Glucose 182 H 01/06/18 01/06/18 01/06/18 12:04 16:04 21:05 WBC RBC Hgb Hct MCV MCH MCHC RDW RDW Differential Plt Count MPV Immature Gran % (Auto) Neut % (Auto) Lymph % (Auto) [place] % (Auto) Eos % (Auto) Baso % (Auto) Absolute Neuts (auto) Absolute Lymphs (auto) Total Counted Differential Comment Hypochromasia Anisocytosis Microcytosis Target Cells Sodium Potassium Chloride Carbon Dioxide Anion Gap BUN Creatinine Estim Creat Clear Calc Est GFR (MDRD) Af Amer Est GFR (MDRD) Non-Af BUN/Creatinine Ratio Glucose Calcium POC Glucose 198 H 193 H 162 H 01/07/18 01/07/18 03:50 06:30 WBC RBC Hgb Hct MCV MCH MCHC RDW RDW Differential Plt Count MPV Immature Gran % (Auto) Neut % (Auto) Lymph % (Auto) [place] % (Auto) Eos % (Auto) Baso % (Auto) Absolute Neuts (auto) Absolute Lymphs (auto) Total Counted Differential Comment Hypochromasia Anisocytosis Microcytosis Target Cells Sodium 138 Potassium 4.3 Chloride 104 Carbon Dioxide 24.0 Anion Gap 10 BUN 51 H Creatinine 1.33 H Estim Creat Clear Calc 49.55 Est GFR (MDRD) Af Amer 67 Est GFR (MDRD) Non-Af 56 L BUN/Creatinine Ratio 38.3 H Glucose 187 H Calcium 8.2 L POC Glucose 157 H Medical Necessity - Tobacco Use Smoking Status: Former smoker Assessment/Plan RECOMMENDATIONS: 1. Supplemental oxygen to keep saturations 88% or greater 2. BiPAP breaks as tolerated 3. Cautious diuresis with intermittent Lasix 4. Wean systemic steroids 5. Continue home pulmonary hypertension medications 6. Await cardiology recommendations IMPRESSIONS: 1. Acute on chronic hypoxic respiratory failure In retrospect, patient's initial presentation may be secondary to the development of new onset atrial flutter. This was not recognized initially secondary to fast heart rate, but with slowing has been noted on EKG. Echocardiogram does show improvement in pulmonary artery pressures. However, this echocardiogram was prior to initiation of pulmonary hypertension medications and patient reports no previous follow-up while on medications for comparison. Patient was placed on full anticoagulation yesterday. Doubt patient would be able to tolerate a MICHELLE at this time given oxygen tensions. For this reason, patient will be continued with rate control and systemic anticoagulation. Lasix has been given as tolerated to help with fluid status, but limited by hypotension. Anticipate holiday from Lasix for today given elevated creatinine. 2. Known COPD and pulmonary hypertension Patient has been seen by pulmonary hypertension specialist at [facility]. Patient should continue with baseline medications for pulmonary hypertension. Will attempt diuresis using intermittent Lasix given marginal blood pressures. Currently on aerosols. No Pulmicort secondary to systemic steroids. Dissipate switching to prednisone therapy tomorrow 3. Cor pulmonale secondary to severe pulmonary hypertension/new onset atrial flutter Elevated BNP and marginal troponin likely secondary to right heart strain , not left heart strain. Would not recommend significant peripheral IV fluids if possible. Does have significantly enlarged atria. It is unclear if patient maintain normal sinus rhythm if cardioverted. 4. Allergic rhinitis/postnasal drip syndrome Continue Flonase 2 sprays in each nostril daily. 5. Severe debility/hyperlipidemia/GERD/diabetes Complicates care, management, recovery and prognosis. Patient on sliding scale insulin coverage. 6. Lung nodule Patient does have a history of cancer in the past. He is aware of the lung nodule, but given comorbid factors, biopsy is likely not appropriate and can lead to significant complications. Current perception is that the risk is greater than benefit in patients morbidity and mortality is more closely linked to his severe pulmonary hypertension and emphysema. 7. CODE STATUS: DNR CCA without intubation Code Visit Inpatient E&M: 97378 Subs Hosp L3
--- NOTE | 2018-01-07 10:03 | PCM.PN.HOSP ---
Subjective: CC: Dyspnea Objective: This is a 77-year-old male with history of chronic cor pulmonale/pulmonary hypertension and COPD who presented with progressive dyspnea and hypoxia. He developed atrial flutter was in the hospital and has been started on amiodarone and Eliquis. The patient reports mild improvement in his symptoms. Vitals/I&O's: Vital Signs Temp Pulse Resp BP Pulse Ox 97.5 F L 90 21 H 101/67 92 01/07/18 09:00 01/07/18 09:00 01/07/18 09:00 01/07/18 09:00 01/07/18 09:00 Oxygen Flow Rate (L/min) 10 Oxygen Delivery Method Non-Rebreather Weight: 74.9 kg Body Mass Index (BMI) 23.2 Intake and Output for Last 24 Hours 01/05/18 01/06/18 01/07/18 23:59 23:59 23:59 Intake Total 1500 / 1500 1440 / 1440 315 / 315 Output Total 1950 / 1950 2049 / 2049 250 / 250 Balance -450 / -450 -610 / -610 65 / 65 General: Alert, Oriented x3 HEENT: Atraumatic Oral: Moist Mucosa Neck: Supple, No JVD Cardiovascular: Irregular Rate Abdomen: Bowel Sounds Present, Soft Extremities: No edema Neurological: Cranial nerves II-XII grossly intact, Motor Exam 5/5 strength throughout Psych/Mental Status: Normal Affect Laboratory Results 01/06/18 12:04: POC Glucose 198 H 01/06/18 16:04: POC Glucose 193 H 01/06/18 21:05: POC Glucose 162 H 01/07/18 03:50: Sodium 138, Potassium 4.3, Chloride 104, Carbon Dioxide 24.0, Anion Gap 10, BUN 51 H, Creatinine 1.33 H, Estim Creat Clear Calc 49.55, Est GFR (MDRD) Af Amer 67, Est GFR (MDRD) Non-Af 56 L, BUN/Creatinine Ratio 38.3 H, Glucose 187 H, Calcium 8.2 L 01/07/18 06:30: POC Glucose 157 H Current Medications Albuterol Sulfate (Ventolin Aerosols) 2.5 mg INHALATION Q4H PRN PRN Reason: SOB &/OR WHEEZING Albuterol/Ipratropium (Duoneb) 3 ml INHALATION Q6HWA.RT CHELY Last Admin: 01/07/18 06:41 Dose: 3 ml Amiodarone HCl (Cordarone) 400 mg PO BID [facility] Apixaban (Eliquis) 2.5 mg PO BID [facility] Aspirin (Aspirin, Baby) 81 mg PO DAILY@0800 [facility] Last Admin: 01/07/18 08:34 Dose: 81 mg Atorvastatin Calcium (Lipitor) 20 mg PO QHS [facility] Last Admin: 01/06/18 21:06 Dose: 20 mg Calcium/Vitamin D (Os-Vincent 500mg + D) [facility] Last Admin: 01/07/18 08:34 Dose: 1 tablet Chlorhexidine Gluconate () 1 each TOPICAL DAILY [facility] Last Admin: 01/07/18 08:37 Dose: 1 each Fluticasone Propionate (Flonase Nasal [place]) 2 spray NASAL DAILY [facility] Last Admin: 01/07/18 08:38 Dose: 2 spray Guaifenesin (Mucinex) 1,200 mg PO BID PRN PRN PRN Reason: CONGESTION Sodium Chloride () 250 mls @ 15 mls/hr IV .[id number] PRN PRN Reason: SALINE FLUSH Amiodarone HCl/Dextrose (Nexterone 360 Mg/200 Ml Bag) 360 mg in 200 mls @ 16.667 mls/hr CONT INF .Q12H [facility] PRN Reason: 0.5 MG/MIN Stop: 01/07/18 10:29 Last Admin: 01/07/18 04:48 Dose: 16.667 mls/hr Insulin Aspart (Novolog Flexpen (Bkc)) 0 units SC ACHS [facility] PRN Reason: Protocol Last Admin: 01/07/18 06:31 Dose: 1 units Lorazepam (Ativan) 0.5 mg PO DAILY [facility] Last Admin: 01/07/18 08:37 Dose: 0.5 mg Macitentan (Opsumit) 10 mg PO DAILY [facility] Last Admin: 01/07/18 08:42 Dose: 10 mg Melatonin (Melatonin) 10 mg PO QHS [facility] Last Admin: 01/06/18 21:06 Dose: 10 mg Methylprednisolone (Solu-Medrol) 40 mg IV Q12 [facility] Last Admin: 01/07/18 08:43 Dose: 40 mg Metoprolol Tartrate (Lopressor (Beta Brian)) 25 mg PO BID [facility] Mirtazapine (Remeron) 7.5 mg PO QHS [facility] Last Admin: 01/06/18 21:08 Dose: 7.5 mg Multivitamins/Minerals (Multivitamin With Minerals) 1 tablet PO DAILY@0800 [facility] Last Admin: 01/07/18 08:34 Dose: 1 tablet Nutritional Formula (Lactose Free) (Glucerna Shake) 120 ml PO 4X/DAY [facility] Last Admin: 01/07/18 08:41 Dose: 120 ml Pantoprazole Sodium (Protonix) 40 mg PO DAILY [facility] Last Admin: 01/07/18 08:43 Dose: 40 mg Senna/Docusate Sodium (Senokot-S, Angella-Colace) 1 tablet PO BID [facility] Last Admin: 01/07/18 08:43 Dose: 1 tablet Sertraline HCl (Zoloft) 50 mg PO DAILY [facility] Last Admin: 01/07/18 08:44 Dose: 50 mg Sodium Chloride () 5 - 30 ml IV UD PRN PRN Reason: SALINE FLUSH Last Admin: 01/07/18 04:48 Dose: 20 ml Sodium Chloride ([place] Nasal [place]) 2 spray NASAL BID PRN PRN PRN Reason: NASAL DRYNESS Last Admin: 01/05/18 05:26 Dose: 2 spray Tadalafil (Cialis) 40 mg PO DAILY [facility] Last Admin: 01/07/18 08:38 Dose: 40 mg Medical Necessity - Tobacco Use Smoking Status: Former smoker Assessment/Plan 1. Acute on chronic respiratory failure with hypoxia ; we will continue him on supplemental oxygen. 2. Atrial flutter; he is on amiodarone, metoprolol and Eliquis. 3. COPD with acute exacerbation; we will continue on bronchodilators and IV steroids. 4. chronic cor pulmonale/pulmonary hypertension; gentle diuresis if needed, he is on Tadalafil for his pulmonary hypertension 5. Severe debility; supportive measures 6. diabetes type 2; he is on regular insulin sliding scale. 7. DVT prophylaxis ; he is on Eliquis.
[2018-01-07] MEDS: APIXABAN 2.5 MG TABLET PO ×2 (10:07→21:06)
[2018-01-07] MEDS: Amiodarone 200 MG Tablet 400 MG PO ×2 (10:07→21:08)
[2018-01-07] MEDS: Metoprolol Tartrate 25 MG Tablet PO ×2 (10:08→21:07)
[2018-01-07 12:10] LABS: Bedside Glucose 158 mg/dL (70-110)
[2018-01-07] MEDS: Albuterol 2.5 MG/3 ML VIAL.NEB. INHALATION (13:06)
[2018-01-07 16:40] LABS: Bedside Glucose 175 mg/dL (70-110)
[2018-01-07] MEDS: MELATONIN 10 MG TABLET PO (21:06)
[2018-01-07] MEDS: Atorvastatin Calcium 20 MG Tablet PO (21:07)
[2018-01-07] MEDS: Mirtazapine 15 MG Tablet 7.5 MG PO (21:07)
[2018-01-07 21:15] LABS: Bedside Glucose 152 mg/dL (70-110)
[2018-01-07] MEDS: Sodium Chloride 0.65% 1 SPRAY SPRAY.BTL 2 SPRAY NASAL (21:19)
[2018-01-08] VITALS (37 sets, daily range): BP systolic 74–133; BP diastolic 49–86; PULSE 70–109; RESP 12–25; TEMP 36.3–36.8; O2SAT 79–95
[2018-01-08] MEDS: 0.9% NaCl Peripheral Flush Adult/Peds IV ×2 (04:10→21:19)
[2018-01-08 04:37] LABS: Anion Gap 9 (5-15); BUN 51 mg/dL (7-18); BUN/Creat Ratio 43.6 RATIO (10-20); Calcium,Total 8.5 mg/dL (8.5-10.1); Chloride 105 mmol/L (98-107); Creatinine, Serum 1.17 mg/dL (0.70-1.30); EST Glomerular Filtration Rate 64 mL/min (>60); Est Glom Filt Rate - Afr Amer 78 mL/min (>60); Estimated Creatinine Clearance 56.33 ml/min; Glucose 181 mg/dL (74-106); Potassium 4.9 mmol/L (3.5-5.1); Sodium Level 138 mmol/L (136-145)
[2018-01-08 04:42] LABS: Absolute Lymphocyte Count 0.75 X10^3/ul (0.83-4.51); Absolute Neutrophil Count 10.6 X10^3/uL (2.0-7.7); Hematocrit 44.4 % (40-54); Hemoglobin 13.5 g/dl (13.0-16.5); Lymphocyte # 0.75 X10^3/ul (4.0); Lymphocyte % 6.4 % (19-41); Mean Corp Hgb Conc 30.4 g/gl (32-36); Mean Corpuscular Hgb 20.2 pg (27.0-32.0); Mean Corpuscular Volume 66.5 fL (80-94); Monocyte# 0.32 X10^3/uL; Monocyte% 2.7 % (0-10); Neutrophil # 10.56 X10^3/uL (2.7-7.7); Neutrophil % 90.8 % (47-70); Platelet Count 223 K/mm3 (150-450); RBC Distribution Width CV 21.5 % (11.6-14.6); RBC Distribution Width SD 49.5 fl (35.1-43.9); Red Blood Count 6.68 M/mm3 (4.6-6.2); White Blood Count 11.6 K/mm3 (4.4-11.0)
[2018-01-08 04:44] LABS: Differential Indicated SCAN CRITERIA MET; POSITIVE COUNT NO; POSITIVE DIFFERENTIAL NO; POSITIVE MORPHOLOGY YES
[2018-01-08 05:11] LABS: Anisocytosis 2+; Hypochromasia 2+; Microcytosis 3+
[2018-01-08 05:19] LABS: Crenated RBC RARE; Ovalocyte RARE; Schistocytes RARE
--- NOTE | 2018-01-08 06:18 | PCM.PN.INT ---
Subjective: Patient did well overnight. No acute issues were reported. Patient did have 3 bowel movements and nursing reports the last one was maroon. This did have a Hemoccult completed on it that was negative. Patient denies any abdominal pain. Patient has noted some minor epistaxis associated with cleaning out his nose. Nursing reports the patient did have good saturations overnight, but systolics were on the low side. No interventions were required. General: Alert, Oriented x3, Cooperative, - - Mild conversational dyspnea. HEENT: Atraumatic, PERRLA, EOMI, Normocephalic, - - Scleral injection is improving Oral: Moist Mucosa, No Gingival or Mucosal Lesions/ Ulcerations Neck: Supple, No JVD, No Nodes, Trachea Midline Lungs: No rhonchi, No wheeze, No rales, Diminished, - - Symmetric expansion. No dullness to percussion. Cardiovascular: Normal S1, Normal S2, Irregular Rate, Murmur, No rub noted, No Gallop Abdomen: Bowel Sounds Present, Soft, Non Tender, Non-Distended Extremities: No cyanosis, Capillary Refill Less than 3 Seconds, Clubbing, Edema - Slightly improved Skin: No rashes, No breakdown Musculoskeletal: No Tenderness to Palpation of Joints or Extremities Lymphatic: No Cervical, Supraclavicular, or Inguinal Adenopathy Neurological: Cranial nerves II-XII grossly intact, Deep Tendon Reflexes 2+/4 and Symmetrical, Neuro grossly intact Psych/Mental Status: Alert and oriented to time, place, person, mood and affect Vital Signs Temp Pulse Resp BP Pulse Ox 36.4 C L 87 21 H 104/71 89 01/08/18 06:00 01/08/18 06:00 01/08/18 06:00 01/08/18 06:00 01/08/18 06:00 Oxygen Flow Rate (L/min) 10 Oxygen Delivery Method Non-Rebreather Weight: 75.2 kg Body Mass Index (BMI) 23.2 Intake and Output for Last 24 Hours 01/06/18 01/07/18 01/08/18 23:59 23:59 23:59 Intake Total 1440 / 1440 1416 / 1416 60 / 60 Output Total 2049 / 2049 1325 / 1325 250 / 250 Balance -610 / -610 91 / 91 -190 / -190 Labs (Last 48 Hours) 03/01/06/18 01/06/18 06:26 12:04 16:04 WBC RBC Hgb Hct MCV MCH MCHC RDW RDW Differential Plt Count Immature Gran % (Auto) Neut % (Auto) Lymph % (Auto) [place] % (Auto) Eos % (Auto) Baso % (Auto) Absolute Neuts (auto) Absolute Lymphs (auto) Total Counted Differential Comment RBC Morphology Hypochromasia Anisocytosis Microcytosis Ovalocytes Schistocytes Sodium Potassium Chloride Carbon Dioxide Anion Gap BUN Creatinine Estim Creat Clear Calc Est GFR (MDRD) Af Amer Est GFR (MDRD) Non-Af BUN/Creatinine Ratio Glucose Calcium POC Glucose 182 H 198 H 193 H 01/06/18 01/07/18 01/07/18 21:05 03:50 06:30 WBC RBC Hgb Hct MCV MCH MCHC RDW RDW Differential Plt Count Immature Gran % (Auto) Neut % (Auto) Lymph % (Auto) [place] % (Auto) Eos % (Auto) Baso % (Auto) Absolute Neuts (auto) Absolute Lymphs (auto) Total Counted Differential Comment RBC Morphology Hypochromasia Anisocytosis Microcytosis Ovalocytes Schistocytes Sodium 138 Potassium 4.3 Chloride 104 Carbon Dioxide 24.0 Anion Gap 10 BUN 51 H Creatinine 1.33 H Estim Creat Clear Calc 49.55 Est GFR (MDRD) Af Amer 67 Est GFR (MDRD) Non-Af 56 L BUN/Creatinine Ratio 38.3 H Glucose 187 H Calcium 8.2 L POC Glucose 162 H 157 H 01/07/18 01/07/18 01/07/18 12:09 16:32 21:11 WBC RBC Hgb Hct MCV MCH MCHC RDW RDW Differential Plt Count Immature Gran % (Auto) Neut % (Auto) Lymph % (Auto) [place] % (Auto) Eos % (Auto) Baso % (Auto) Absolute Neuts (auto) Absolute Lymphs (auto) Total Counted Differential Comment RBC Morphology Hypochromasia Anisocytosis Microcytosis Ovalocytes Schistocytes Sodium Potassium Chloride Carbon Dioxide Anion Gap BUN Creatinine Estim Creat Clear Calc Est GFR (MDRD) Af Amer Est GFR (MDRD) Non-Af BUN/Creatinine Ratio Glucose Calcium POC Glucose 158 H 175 H 152 H 01/08/18 01/08/18 04:02 04:02 WBC 11.6 H RBC 6.68 H Hgb 13.5 Hct 44.4 MCV 66.5 L MCH 20.2 L MCHC 30.4 L RDW 21.5 H RDW Differential 49.5 H Plt Count 223 Immature Gran % (Auto) 0.100 Neut % (Auto) 90.8 H Lymph % (Auto) 6.4 L [place] % (Auto) 2.7 Eos % (Auto) 0.0 Baso % (Auto) 0.0 Absolute Neuts (auto) 10.6 H Absolute Lymphs (auto) 0.75 L Total Counted Not Reportable Differential Comment RBC Morphology RARE Hypochromasia 2+ Anisocytosis 2+ Microcytosis 3+ Ovalocytes RARE Schistocytes RARE Sodium 138 Potassium 4.9 Chloride 105 Carbon Dioxide 24.0 Anion Gap 9 BUN 51 H Creatinine 1.17 Estim Creat Clear Calc 56.33 Est GFR (MDRD) Af Amer 78 Est GFR (MDRD) Non-Af 64 BUN/Creatinine Ratio 43.6 H Glucose 181 H Calcium 8.5 POC Glucose Microbiology 01/07/18 17:30 Stool Stool Occult Blood (TIM) - Final Medical Necessity - Tobacco Use Smoking Status: Former smoker Assessment/Plan RECOMMENDATIONS: 1. Supplemental oxygen to keep saturations 88% or greater 2. BiPAP breaks as tolerated 3. Cautious diuresis with intermittent Lasix 4. Discontinue systemic steroids 5. Continue home pulmonary hypertension medications 6. Await cardiology recommendations IMPRESSIONS: 1. Acute on chronic hypoxic respiratory failure Patient with new onset atrial flutter leading to decompensated cor pulmonale. Patient has not received Lasix therapy in 24 hours, but heart rate is much better controlled compared to previous. Patient is on full anticoagulation. Maroon stool was reported, but this was Hemoccult negative. CBC shows preserved blood counts. Continue to increase activity as tolerated. May be able to give Lasix today. 2. Known COPD and pulmonary hypertension Patient has been seen by pulmonary hypertension specialist at [facility]. Patient should continue with baseline medications for pulmonary hypertension. Will attempt diuresis using intermittent Lasix given marginal blood pressures. Currently on aerosols. 3. Cor pulmonale secondary to severe pulmonary hypertension/new onset atrial flutter Elevated BNP and marginal troponin likely secondary to right heart strain, not left heart strain. Would not recommend significant peripheral IV fluids if possible. Does have significantly enlarged atria. It is unclear if patient maintain normal sinus rhythm if cardioverted. Patient is tolerating p.o. diet well. 4. Allergic rhinitis/postnasal drip syndrome Continue Flonase 2 sprays in each nostril daily. 5. Severe debility/hyperlipidemia/GERD/diabetes Complicates care, management, recovery and prognosis. Patient on sliding scale insulin coverage. 6. Lung nodule Patient does have a history of cancer in the past. He is aware of the lung nodule, but given comorbid factors, biopsy is likely not appropriate and can lead to significant complications. Current perception is that the risk is greater than benefit in patients morbidity and mortality is more closely linked to his severe pulmonary hypertension and emphysema. 7. CODE STATUS: DNR CCA without intubation Code Visit Inpatient E&M: 31768 Subs Hosp L3
[2018-01-08] MEDS: Ipratropium/Albuterol Sulfate 3 ML AMPUL.NEB INHALATION ×3 (07:13→18:31)
[2018-01-08] MEDS: Calcium Carb/Vitamin D 1 TABLET Tablet PO (08:30)
[2018-01-08] MEDS: Multivitamins,Ther W-Minerals Tablet 1 TABLET PO (08:30)
[2018-01-08] MEDS: Aspirin 81 MG TAB.CHEW PO (08:30)
--- NOTE | 2018-01-08 09:13 | PCM.PN.CARD ---
Subjectve: The patient was seen and evaluated. He appears to be doing better though he still requiring a fair amount of oxygen. Heart rate now in the 90s to low 100s. Still in atrial flutter. Objective: Vital Signs Temp Pulse Resp BP Pulse Ox 97.5 F L 95 19 H 100/71 92 01/08/18 08:00 01/08/18 08:00 01/08/18 08:00 01/08/18 08:00 01/08/18 08:00 Oxygen Flow Rate (L/min) 10 Oxygen Delivery Method Non-Rebreather Weight: 165 lb 12.602 oz Body Mass Index (BMI) 23.2 Intake and Output for Last 24 Hours 01/06/18 01/07/18 01/08/18 23:59 23:59 23:59 Intake Total 1440 / 1440 1416 / 1416 60 / 60 Output Total 2049 / 2049 1325 / 1325 250 / 250 Balance -610 / -610 91 / 91 -190 / -190 General: Awake, Alert, Oriented x 3, Ill Appearing HEENT: PERRL, EOMI, Sclera Non Icteric Neck: Supple, Good ROM, No Lymph Node Enlargement Lungs: Clear to auscultation Cardiovascular: Irregular Rhythm Vascular: No Carotid Bruits, Normal Femoral Pulses, Normal Radial Pulses, Normal Dorsalis Pedal Pulse, Normal Posterior Tibial Pulses Abdomen: Bowel Sounds Present, Soft, Non Tender, No HSM, No Organomegaly Extremities: No Cyanosis, No Clubbing, No edema Neurological: No Focal Motor or Sensory Deficit Psych/Mental Status: Appropriate 01/08/18 04:02: Sodium 138, Potassium 4.9, Chloride 105, Carbon Dioxide 24.0, Anion Gap 9, BUN 51 H, Creatinine 1.17, Est GFR (MDRD) Af Amer 78, Est GFR (MDRD) Non-Af 64, BUN/Creatinine Ratio 43.6 H, Glucose 181 H, Calcium 8.5 01/08/18 04:02: WBC 11.6 H, RBC 6.68 H, Hgb 13.5, Hct 44.4, MCV 66.5 L, MCH 20.2 L, MCHC 30.4 L, RDW 21.5 H, RDW Differential 49.5 H, Plt Count 223, Immature Gran % (Auto) 0.100, Neut % (Auto) 90.8 H, Lymph % (Auto) 6.4 L, [place] % (Auto) 2.7, Eos % (Auto) 0.0, Baso % (Auto) 0.0, Absolute Neuts (auto) 10.6 H, Total Counted Not Reportable Rhythm: Atrial flutter with variable AV block Medical Necessity - Tobacco Use Smoking Status: Former smoker Assessment/Plan 1. Atrial flutter: Patient appears to present with atrial flutter which appears to be of new onset, however I am uncertain when it started. Yesterday he was started on metoprolol 25 mg twice a day Eliquis 5 mg twice a day Amiodarone 400 mg twice a day for 72 hours then 200 mg twice a day for 2 weeks then 200 mg daily. He appears to have tolerated this regimen quite well with improvement in his heart rate. It may be prudent if he is able to perform a MICHELLE guided cardioversion this admission with minimal sedation. I discussed this with the patient his family as well as the skid strapper. We may try for Tuesday a.m. 2. Pulmonary hypertension: Patient appears to have pulmonary hypertension out of proportion to his COPD, and there is some concern the patient may have a PFO or ASD with concomitant left right shunting which may have contributed to the patient's right-sided volume and pressure overload. I am pleased to see that his pulmonary pressures have markedly improved since September 2016 with the administration of Adcirca and OPSUMIT. Recommend gentle diuresis and avoid aggressive diuresis as he is most likely preload dependent and would most likely drop his blood pressure. Again would recommend full dose long-term anticoagulation for both atrial flutter as well as severe pulmonary hypertension. Thank you for allowing me to participate in the care of your patient. Please don't hesitate to call if any issues arise
--- NOTE | 2018-01-08 09:16 | PN.CARD_ITS ---
Subjectve: The patient was seen and evaluated. He appears to be doing better though he still requiring a fair amount of oxygen. Heart rate now in the 90s to low 100s. Still in atrial flutter. Objective: Vital Signs Temp Pulse Resp BP Pulse Ox 97.5 F L 95 19 H 100/71 92 01/08/18 08:00 01/08/18 08:00 01/08/18 08:00 01/08/18 08:00 01/08/18 08:00 Oxygen Flow Rate (L/min) 10 Oxygen Delivery Method Non-Rebreather Weight: 165 lb 12.602 oz Body Mass Index (BMI) 23.2 Intake and Output for Last 24 Hours 01/06/18 01/07/18 01/08/18 23:59 23:59 23:59 Intake Total 1440 / 1440 1416 / 1416 60 / 60 Output Total 2049 / 2049 1325 / 1325 250 / 250 Balance -610 / -610 91 / 91 -190 / -190 General: Awake, Alert, Oriented x 3, Ill Appearing HEENT: PERRL, EOMI, Sclera Non Icteric Neck: Supple, Good ROM, No Lymph Node Enlargement Lungs: Clear to auscultation Cardiovascular: Irregular Rhythm Vascular: No Carotid Bruits, Normal Femoral Pulses, Normal Radial Pulses, Normal Dorsalis Pedal Pulse, Normal Posterior Tibial Pulses Abdomen: Bowel Sounds Present, Soft, Non Tender, No HSM, No Organomegaly Extremities: No Cyanosis, No Clubbing, No edema Neurological: No Focal Motor or Sensory Deficit Psych/Mental Status: Appropriate 01/08/18 04:02: Sodium 138, Potassium 4.9, Chloride 105, Carbon Dioxide 24.0, Anion Gap 9, BUN 51 H, Creatinine 1.17, Est GFR (MDRD) Af Amer 78, Est GFR (MDRD ) Non-Af 64, BUN/Creatinine Ratio 43.6 H, Glucose 181 H, Calcium 8.5 01/08/18 04:02: WBC 11.6 H, RBC 6.68 H, Hgb 13.5, Hct 44.4, MCV 66.5 L, MCH 20.2 L, MCHC 30.4 L, RDW 21.5 H, RDW Differential 49.5 H, Plt Count 223, Immature Gran % (Auto) 0.100, Neut % (Auto) 90.8 H, Lymph % (Auto) 6.4 L, [place] % (Auto) 2.7, Eos % (Auto) 0.0, Baso % (Auto) 0.0, Absolute Neuts (auto) 10.6 H , Total Counted Not Reportable Rhythm: Atrial flutter with variable AV block Medical Necessity - Tobacco Use Smoking Status: Former smoker Assessment/Plan 1. Atrial flutter: Patient appears to present with atrial flutter which appears to be of new onset, however I am uncertain when it started. Yesterday he was started on metoprolol 25 mg twice a day Eliquis 5 mg twice a day Amiodarone 400 mg twice a day for 72 hours then 200 mg twice a day for 2 weeks then 200 mg daily. He appears to have tolerated this regimen quite well with improvement in his heart rate. It may be prudent if he is able to perform a MICHELLE guided cardioversion this admission with minimal sedation. I discussed this with the patient his family as well as the unit aide. We may try for Tuesday a.m. 2. Pulmonary hypertension: Patient appears to have pulmonary hypertension out of proportion to his COPD, and there is some concern the patient may have a PFO or ASD with concomitant left right shunting which may have contributed to the patient's right-sided volume and pressure overload. I am pleased to see that his pulmonary pressures have markedly improved since September 2016 with the administration of Adcirca and OPSUMIT. Recommend gentle diuresis and avoid aggressive diuresis as he is most likely preload dependent and would most likely drop his blood pressure. Again would recommend full dose long-term anticoagulation for both atrial flutter as well as severe pulmonary hypertension. Thank you for allowing me to participate in the care of your patient. Please don't hesitate to call if any issues arise
[2018-01-08 09:56] LABS: Bedside Glucose 148 mg/dL (70-110)
[2018-01-08] MEDS: CHLORHEXIDINE GLUC 2% CLOTH 1 EACH TOWELETTE TOPICAL (10:30)
[2018-01-08] MEDS: TADALAFIL 20 MG TABLET 40 MG PO (10:34)
[2018-01-08] MEDS: Amiodarone 200 MG Tablet 400 MG PO ×2 (10:35→21:09)
[2018-01-08] MEDS: LORazepam 0.5 MG Tablet PO (10:37)
[2018-01-08] MEDS: Fluticasone 0.05% 1 SPRAY NASAL.SRY 2 SPRAY NASAL (10:38)
[2018-01-08] MEDS: APIXABAN 5 MG TABLET PO ×2 (10:38→21:09)
[2018-01-08] MEDS: Metoprolol Tartrate 25 MG Tablet PO ×2 (10:39→21:10)
[2018-01-08] MEDS: Pantoprazole Sodium 40 MG Tablet PO (10:39)
[2018-01-08] MEDS: MACITENTAN 10 MG PO (10:39)
[2018-01-08] MEDS: Glucerna Shake 120 ML LIQUID PO ×3 (10:40→19:17)
[2018-01-08] MEDS: Senna/Docusate Sodium 1 Tablet PO ×2 (10:40→21:09)
[2018-01-08] MEDS: Sertraline 50 MG Tablet PO (10:40)
[2018-01-08 11:25] LABS: Bedside Glucose 144 mg/dL (70-110)
[2018-01-08] MEDS: Sodium Chloride 0.65% 1 SPRAY SPRAY.BTL 2 SPRAY NASAL ×2 (12:02→21:11)
--- NOTE | 2018-01-08 16:41 | PN_ITS ---
Subjective: CC: shortness of breath, new onset atrial flutter Objective: Interval history: This is a 77-year-old male with history of chronic cor pulmonale/pulmonary hypertension and COPD who presented with progressive dyspnea and hypoxia. He developed atrial flutter while in the hospital and has been started on amiodarone , BB and Eliquis. The patient reports mild improvement in his symptoms. He is to undergo possible MICHELLE guided cardioversion early next week. Vitals/I&O's: Vital Signs Temp Pulse Resp BP Pulse Ox 98.1 F 81 18 133/74 H 88 01/08/18 12:00 01/08/18 13:28 01/08/18 13:28 01/08/18 12:00 01/08/18 12:00 Oxygen Flow Rate (L/min) 25 Oxygen Delivery Method Non-Rebreather Weight: 75.2 kg Body Mass Index (BMI) 23.2 Intake and Output for Last 24 Hours 01/06/18 01/07/18 01/08/18 23:59 23:59 23:59 Intake Total 1440 / 1440 1416 / 1416 60 / 60 Output Total 2049 / 2049 1325 / 1325 250 / 250 Balance -610 / -610 91 / 91 -190 / -190 Microbiology Past 72 Hours 01/07/18 17:30 Stool Stool Occult Blood (TIM) - Final Laboratory Results 01/07/18 16:32: POC Glucose 175 H 01/07/18 21:11: POC Glucose 152 H 01/08/18 04:02: Sodium 138, Potassium 4.9, Chloride 105, Carbon Dioxide 24.0, Anion Gap 9, BUN 51 H, Creatinine 1.17, Estim Creat Clear Calc 56.33, Est GFR ( MDRD) Af Amer 78, Est GFR (MDRD) Non-Af 64, BUN/Creatinine Ratio 43.6 H, Glucose 181 H, Calcium 8.5 01/08/18 04:02: WBC 11.6 H, RBC 6.68 H, Hgb 13.5, Hct 44.4, MCV 66.5 L, MCH 20.2 L, MCHC 30.4 L, RDW 21.5 H, RDW Differential 49.5 H, Plt Count 223, Immature Gran % (Auto) 0.100, Neut % (Auto) 90.8 H, Lymph % (Auto) 6.4 L, [place] % (Auto) 2.7, Eos % (Auto) 0.0, Baso % (Auto) 0.0, Absolute Neuts (auto) 10.6 H , Absolute Lymphs (auto) 0.75 L, Total Counted Not Reportable, Differential Comment , RBC Morphology RARE, Hypochromasia 2+, Anisocytosis 2+, Microcytosis 3 +, Ovalocytes RARE, Schistocytes RARE 01/08/18 08:24: POC Glucose 148 H 01/08/18 11:21: POC Glucose 144 H Current Medications Albuterol Sulfate (Ventolin Aerosols) 2.5 mg INHALATION Q4H PRN PRN Reason: SOB &/OR WHEEZING Last Admin: 01/07/18 13:06 Dose: 2.5 mg Albuterol/Ipratropium (Duoneb) 3 ml INHALATION Q6HWA.RT [facility] Last Admin: 01/08/18 13:27 Dose: 3 ml Amiodarone HCl (Cordarone) 400 mg PO BID [facility] Last Admin: 01/08/18 10:35 Dose: 400 mg Apixaban (Eliquis) 5 mg PO BID [facility] Last Admin: 01/08/18 10:38 Dose: 5 mg Aspirin (Aspirin, Baby) 81 mg PO DAILY@0800 [facility] Last Admin: 01/08/18 08:30 Dose: 81 mg Atorvastatin Calcium (Lipitor) 20 mg PO QHS [facility] Last Admin: 01/07/18 21:07 Dose: 20 mg Calcium/Vitamin D (Os-Vincent 500mg + D) 1 tablet PO DAILYCM [facility] Last Admin: 01/08/18 08:30 Dose: 1 tablet Chlorhexidine Gluconate () 1 each TOPICAL DAILY [facility] Last Admin: 01/07/18 08:37 Dose: 1 each Fluticasone Propionate (Flonase Nasal [place]) 2 spray NASAL DAILY [facility] Last Admin: 01/08/18 10:38 Dose: 2 spray Guaifenesin (Mucinex) 1,200 mg PO BID PRN PRN PRN Reason: CONGESTION Sodium Chloride () 250 mls @ 15 mls/hr IV .[id number] PRN PRN Reason: SALINE FLUSH Insulin Aspart (Novolog Flexpen (Bkc)) 0 units SC ACHS CHELY PRN Reason: Protocol Last Admin: 01/08/18 11:34 Dose: Not Given Lorazepam (Ativan) 0.5 mg PO DAILY [facility] Last Admin: 01/08/18 10:37 Dose: 0.5 mg Macitentan (Opsumit) 10 mg PO DAILY [facility] Last Admin: 01/08/18 10:39 Dose: 10 mg Melatonin (Melatonin) 10 mg PO QHS [facility] Last Admin: 01/07/18 21:06 Dose: 10 mg Metoprolol Tartrate (Lopressor (Beta Brian)) 25 mg PO BID [facility] Last Admin: 01/08/18 10:39 Dose: 25 mg Mirtazapine (Remeron) 7.5 mg PO QHS [facility] Last Admin: 01/07/18 21:07 Dose: 7.5 mg Multivitamins/Minerals (Multivitamin With Minerals) 1 tablet PO DAILY@0800 [facility] Last Admin: 01/08/18 08:30 Dose: 1 tablet Nutritional Formula (Lactose Free) (Glucerna Shake) 120 ml PO 4X/DAY [facility] Last Admin: 01/08/18 15:06 Dose: 120 ml Pantoprazole Sodium (Protonix) 40 mg PO DAILY [facility] Last Admin: 01/08/18 10:39 Dose: 40 mg Senna/Docusate Sodium (Senokot-S, Angella-Colace) 1 tablet PO BID [facility] Last Admin: 01/08/18 10:40 Dose: 1 tablet Sertraline HCl (Zoloft) 50 mg PO DAILY [facility] Last Admin: 01/08/18 10:40 Dose: 50 mg Sodium Chloride () 5 - 30 ml IV UD PRN PRN Reason: SALINE FLUSH Last Admin: 01/08/18 04:10 Dose: 10 ml Sodium Chloride ([place] Nasal [place]) 2 spray NASAL BID PRN PRN PRN Reason: NASAL DRYNESS Last Admin: 01/08/18 12:02 Dose: 2 spray Tadalafil (Cialis) 40 mg PO DAILY [facility] Last Admin: 01/08/18 10:34 Dose: 40 mg Medical Necessity - Tobacco Use Smoking Status: Former smoker Assessment/Plan 1. Acute on chronic respiratory failure with hypoxia ; we will continue him on supplemental oxygen. 2. Atrial flutter; he is on amiodarone, metoprolol and Eliquis. MICHELLE with possible DCCV early next week. 3. COPD ; we will continue on bronchodilators . 4. chronic cor pulmonale/pulmonary hypertension; gentle diuresis if needed, he is on Tadalafil for his pulmonary hypertension 5. Severe debility; supportive measures 6. diabetes type 2; he is on regular insulin sliding scale. 7. Deconditioning; PT/OT when appropriate 8. Disposition; the patient will benefit [facility] at the time of discharge. 9. DVT prophylaxis ; he is on Eliquis. Code Visit Inpatient E&M: 15604 Subs Hosp L3
[2018-01-08 16:56] LABS: Bedside Glucose 125 mg/dL (70-110)
[2018-01-08] MEDS: Atorvastatin Calcium 20 MG Tablet PO (21:09)
[2018-01-08] MEDS: Mirtazapine 15 MG Tablet 7.5 MG PO (21:09)
[2018-01-08] MEDS: MELATONIN 10 MG TABLET PO (21:09)
[2018-01-08 21:25] LABS: Bedside Glucose 153 mg/dL (70-110)
[2018-01-09] VITALS (40 sets, daily range): BP systolic 80–139; BP diastolic 52–113; PULSE 62–88; RESP 12–23; TEMP 36.3–37.1; O2SAT 82–96
[2018-01-09] MEDS: Ipratropium/Albuterol Sulfate 3 ML AMPUL.NEB INHALATION ×3 (06:36→18:38)
--- NOTE | 2018-01-09 06:43 | PCM.PN.CARD ---
Subjectve: Patient was seen and evaluated. His heart rate appears to be better but his blood pressure is low. Objective: Vital Signs Temp Pulse Resp BP Pulse Ox 98.1 F 69 12 87/64 L 93 01/09/18 00:00 01/09/18 05:00 01/09/18 05:00 01/09/18 05:00 01/09/18 05:00 Oxygen Flow Rate (L/min) 10 Oxygen Delivery Method Bi-pap Weight: 167 lb 1.766 oz Body Mass Index (BMI) 23.2 Intake and Output for Last 24 Hours 01/07/18 01/08/18 01/09/18 23:59 23:59 23:59 Intake Total 1416 / 1416 1380 / 1380 Output Total 1325 / 1325 700 / 700 250 / 250 Balance 91 / 91 680 / 680 -250 / -250 General: Awake, Ill Appearing HEENT: PERRL, EOMI, Sclera Non Icteric Neck: Supple, Good ROM, No Lymph Node Enlargement Lungs: Diminished Jimmy Bases Cardiovascular: Irregular Rhythm Vascular: No Carotid Bruits, Normal Femoral Pulses, Normal Radial Pulses, Normal Dorsalis Pedal Pulse, Normal Posterior Tibial Pulses Abdomen: Bowel Sounds Present, Soft, Non Tender, No HSM, No Organomegaly Extremities: No Cyanosis, No Clubbing, No edema Neurological: No Focal Motor or Sensory Deficit Rhythm: EKG: Atrial flutter. Medical Necessity - Tobacco Use Smoking Status: Former smoker Assessment/Plan 1. Atrial flutter: Patient appears to present with atrial flutter which appears to be of new onset, however I am uncertain when it started. He was started on metoprolol 25 mg twice a day Eliquis 5 mg twice a day Amiodarone 400 mg twice a day for 72 hours then 200 mg twice a day for 2 weeks then 200 mg daily. He appears to have tolerated this regimen quite well with improvement in his heart rate. It may be prudent if he is able to perform a MICHELLE guided cardioversion this admission with minimal sedation. I discussed this with the patient his family as well as the kettle hand. We may try for Tuesday a.m. 2. Pulmonary hypertension: Patient appears to have pulmonary hypertension out of proportion to his COPD, and there is some concern the patient may have a PFO or ASD with concomitant left right shunting which may have contributed to the patient's right-sided volume and pressure overload. I am pleased to see that his pulmonary pressures have markedly improved since September 2016 with the administration of Adcirca and OPSUMIT. He appears to be prerenal at this time and I may suggest gentle rehydration with IV fluid at a rate of about 60-75 cc an hour for 1 L. Will discuss with education and outreach coordinator. Thank you for allowing me to participate in the care of your patient. Please don't hesitate to call if any issues arise
--- NOTE | 2018-01-09 06:47 | PN.CARD_ITS ---
Subjectve: Patient was seen and evaluated. His heart rate appears to be better but his blood pressure is low. Objective: Vital Signs Temp Pulse Resp BP Pulse Ox 98.1 F 69 12 87/64 L 93 01/09/18 00:00 01/09/18 05:00 01/09/18 05:00 01/09/18 05:00 01/09/18 05:00 Oxygen Flow Rate (L/min) 10 Oxygen Delivery Method Bi-pap Weight: 167 lb 1.766 oz Body Mass Index (BMI) 23.2 Intake and Output for Last 24 Hours 01/07/18 01/08/18 01/09/18 23:59 23:59 23:59 Intake Total 1416 / 1416 1380 / 1380 Output Total 1325 / 1325 700 / 700 250 / 250 Balance 91 / 91 680 / 680 -250 / -250 General: Awake, Ill Appearing HEENT: PERRL, EOMI, Sclera Non Icteric Neck: Supple, Good ROM, No Lymph Node Enlargement Lungs: Diminished Jimmy Bases Cardiovascular: Irregular Rhythm Vascular: No Carotid Bruits, Normal Femoral Pulses, Normal Radial Pulses, Normal Dorsalis Pedal Pulse, Normal Posterior Tibial Pulses Abdomen: Bowel Sounds Present, Soft, Non Tender, No HSM, No Organomegaly Extremities: No Cyanosis, No Clubbing, No edema Neurological: No Focal Motor or Sensory Deficit Rhythm: EKG: Atrial flutter. Medical Necessity - Tobacco Use Smoking Status: Former smoker Assessment/Plan 1. Atrial flutter: Patient appears to present with atrial flutter which appears to be of new onset, however I am uncertain when it started. He was started on metoprolol 25 mg twice a day Eliquis 5 mg twice a day Amiodarone 400 mg twice a day for 72 hours then 200 mg twice a day for 2 weeks then 200 mg daily. He appears to have tolerated this regimen quite well with improvement in his heart rate. It may be prudent if he is able to perform a MICHELLE guided cardioversion this admission with minimal sedation. I discussed this with the patient his family as well as the sand mixer machine. We may try for Tuesday a.m. 2. Pulmonary hypertension: Patient appears to have pulmonary hypertension out of proportion to his COPD, and there is some concern the patient may have a PFO or ASD with concomitant left right shunting which may have contributed to the patient's right-sided volume and pressure overload. I am pleased to see that his pulmonary pressures have markedly improved since September 2016 with the administration of Adcirca and OPSUMIT. He appears to be prerenal at this time and I may suggest gentle rehydration with IV fluid at a rate of about 60-75 cc an hour for 1 L. Will discuss with tennis professional. Thank you for allowing me to participate in the care of your patient. Please don't hesitate to call if any issues arise
--- NOTE | 2018-01-09 06:59 | PCM.PN.INT ---
Subjective: Patient did okay overnight. No acute issues were reported. Patient was tolerant of positive pressure without difficulty. Patient denies any bowel movements over the last 24 hours. No significant epistaxis, hemoptysis, melena or hematochezia has been reported. Patient was able to make it to the chair yesterday without difficulty. Patient continues to require high flow nasal cannula oxygen and nonrebreather to maintain saturations while awake. General: Alert, Oriented x3, Cooperative, No apparent distress, - - Speaking in full sentences HEENT: Atraumatic, PERRLA, EOMI, Normocephalic, - - No scleral icterus or injection noted. Oral: Moist Mucosa, No Gingival or Mucosal Lesions/ Ulcerations Neck: Supple, No Nodes, Trachea Midline, JVD, Right Lungs: No rhonchi, No wheeze, No rales, Diminished, - - Symmetric expansion. No dullness to percussion. Cardiovascular: Normal S1, Normal S2, Irregular Rate, Murmur, No rub noted, No Gallop Abdomen: Bowel Sounds Present, Soft, Non Tender, Non-Distended Extremities: No cyanosis, Capillary Refill Less than 3 Seconds, Clubbing, Edema - Above area of Tian wrap Skin: - - No significant change compared to previous Musculoskeletal: No Tenderness to Palpation of Joints or Extremities Lymphatic: No Cervical, Supraclavicular, or Inguinal Adenopathy Neurological: Cranial nerves II-XII grossly intact, Neuro grossly intact, Motor Exam 5/5 strength throughout Psych/Mental Status: Alert and oriented to time, place, person, mood and affect Vital Signs Temp Pulse Resp BP Pulse Ox 36.7 C 69 12 87/64 L 93 01/09/18 00:00 01/09/18 05:00 01/09/18 05:00 01/09/18 05:00 01/09/18 05:00 Oxygen Flow Rate (L/min) 10 Oxygen Delivery Method Bi-pap Weight: 75.8 kg Body Mass Index (BMI) 23.2 Intake and Output for Last 24 Hours 01/07/18 01/08/18 01/09/18 23:59 23:59 23:59 Intake Total 1416 / 1416 1380 / 1380 Output Total 1325 / 1325 700 / 700 250 / 250 Balance 91 / 91 680 / 680 -250 / -250 Labs (Last 48 Hours) 01/07/18 01/07/18 01/07/18 06:30 12:09 16:32 WBC RBC Hgb Hct MCV MCH MCHC RDW RDW Differential Plt Count Immature Gran % (Auto) Neut % (Auto) Lymph % (Auto) [place] % (Auto) Eos % (Auto) Baso % (Auto) Absolute Neuts (auto) Absolute Lymphs (auto) Total Counted Differential Comment RBC Morphology Hypochromasia Anisocytosis Microcytosis Ovalocytes Schistocytes Sodium Potassium Chloride Carbon Dioxide Anion Gap BUN Creatinine Estim Creat Clear Calc Est GFR (MDRD) Af Amer Est GFR (MDRD) Non-Af BUN/Creatinine Ratio Glucose Calcium POC Glucose 157 H 158 H 175 H 01/07/18 01/08/18 01/08/18 21:11 04:02 04:02 WBC 11.6 H RBC 6.68 H Hgb 13.5 Hct 44.4 MCV 66.5 L MCH 20.2 L MCHC 30.4 L RDW 21.5 H RDW Differential 49.5 H Plt Count 223 Immature Gran % (Auto) 0.100 Neut % (Auto) 90.8 H Lymph % (Auto) 6.4 L [place] % (Auto) 2.7 Eos % (Auto) 0.0 Baso % (Auto) 0.0 Absolute Neuts (auto) 10.6 H Absolute Lymphs (auto) 0.75 L Total Counted Not Reportable Differential Comment RBC Morphology RARE Hypochromasia 2+ Anisocytosis 2+ Microcytosis 3+ Ovalocytes RARE Schistocytes RARE Sodium 138 Potassium 4.9 Chloride 105 Carbon Dioxide 24.0 Anion Gap 9 BUN 51 H Creatinine 1.17 Estim Creat Clear Calc 56.33 Est GFR (MDRD) Af Amer 78 Est GFR (MDRD) Non-Af 64 BUN/Creatinine Ratio 43.6 H Glucose 181 H Calcium 8.5 POC Glucose 152 H 01/08/18 01/08/18 01/08/18 08:24 11:21 16:48 WBC RBC Hgb Hct MCV MCH MCHC RDW RDW Differential Plt Count Immature Gran % (Auto) Neut % (Auto) Lymph % (Auto) [place] % (Auto) Eos % (Auto) Baso % (Auto) Absolute Neuts (auto) Absolute Lymphs (auto) Total Counted Differential Comment RBC Morphology Hypochromasia Anisocytosis Microcytosis Ovalocytes Schistocytes Sodium Potassium Chloride Carbon Dioxide Anion Gap BUN Creatinine Estim Creat Clear Calc Est GFR (MDRD) Af Amer Est GFR (MDRD) Non-Af BUN/Creatinine Ratio Glucose Calcium POC Glucose 148 H 144 H 125 H 01/08/18 21:15 WBC RBC Hgb Hct MCV MCH MCHC RDW RDW Differential Plt Count Immature Gran % (Auto) Neut % (Auto) Lymph % (Auto) [place] % (Auto) Eos % (Auto) Baso % (Auto) Absolute Neuts (auto) Absolute Lymphs (auto) Total Counted Differential Comment RBC Morphology Hypochromasia Anisocytosis Microcytosis Ovalocytes Schistocytes Sodium Potassium Chloride Carbon Dioxide Anion Gap BUN Creatinine Estim Creat Clear Calc Est GFR (MDRD) Af Amer Est GFR (MDRD) Non-Af BUN/Creatinine Ratio Glucose Calcium POC Glucose 153 H Microbiology 01/07/18 17:30 Stool Stool Occult Blood (TIM) - Final Medical Necessity - Tobacco Use Smoking Status: Former smoker Assessment/Plan RECOMMENDATIONS: 1. Supplemental oxygen to keep saturations 88% or greater 2. BiPAP breaks as tolerated 3. Will diuresis for now, allow slow fluid retention 4. Continue home pulmonary hypertension medications 5. Await cardiology recommendations, MICHELLE and possible cardioversion tomorrow IMPRESSIONS: 1. Acute on chronic hypoxic respiratory failure Patient with new onset atrial flutter leading to decompensated cor pulmonale. Patient has not received Lasix therapy in 48 hours, but heart rate is much better controlled compared to previous. Patient is on full anticoagulation. Holding off on active diuresis given uremia and marginal blood pressures. Patient positive approximately 500 cc per day without diuretic therapy. Await cardioversion to see if mechanics improve with improved VQ matching. 2. Known COPD and pulmonary hypertension Patient has been seen by pulmonary hypertension specialist at [facility]. Patient should continue with baseline medications for pulmonary hypertension. Will not attempt diuresis using intermittent Lasix given marginal blood pressures. Currently on aerosols. 3. Cor pulmonale secondary to severe pulmonary hypertension/new onset atrial flutter Elevated BNP and marginal troponin likely secondary to right heart strain, not left heart strain. Would not recommend significant peripheral IV fluids if possible. Does have significantly enlarged atria. It is unclear if patient maintain normal sinus rhythm if cardioverted, but I agree with cardiology in the attempt of cardioversion if there is no clots noted on MICHELLE. Patient is tolerating p.o. diet well. 4. Allergic rhinitis/postnasal drip syndrome Continue Flonase 2 sprays in each nostril daily. 5. Severe debility/hyperlipidemia/GERD/diabetes Complicates care, management, recovery and prognosis. Patient on sliding scale insulin coverage. 6. Lung nodule Patient does have a history of cancer in the past. He is aware of the lung nodule, but given comorbid factors, biopsy is likely not appropriate and can lead to significant complications. Current perception is that the risk is greater than benefit in patients morbidity and mortality is more closely linked to his severe pulmonary hypertension and emphysema. 7. CODE STATUS: DNR CCA without intubation Code Visit Inpatient E&M: 52677 Subs Hosp L3
[2018-01-09] MEDS: Multivitamins,Ther W-Minerals Tablet 1 TABLET PO (07:37)
[2018-01-09] MEDS: Aspirin 81 MG TAB.CHEW PO (07:37)
[2018-01-09] MEDS: Calcium Carb/Vitamin D 1 TABLET Tablet PO (07:37)
[2018-01-09 07:45] LABS: Bedside Glucose 111 mg/dL (70-110)
[2018-01-09] MEDS: CHLORHEXIDINE GLUC 2% CLOTH 1 EACH TOWELETTE TOPICAL (09:28)
[2018-01-09] MEDS: LORazepam 0.5 MG Tablet PO (09:28)
[2018-01-09] MEDS: Amiodarone 200 MG Tablet 400 MG PO ×2 (09:28→21:05)
[2018-01-09] MEDS: Glucerna Shake 120 ML LIQUID PO ×4 (09:28→21:06)
[2018-01-09] MEDS: Metoprolol Tartrate 25 MG Tablet PO ×2 (09:28→21:04)
[2018-01-09] MEDS: Fluticasone 0.05% 1 SPRAY NASAL.SRY 2 SPRAY NASAL (09:29)
[2018-01-09] MEDS: TADALAFIL 20 MG TABLET 40 MG PO (09:29)
[2018-01-09] MEDS: Pantoprazole Sodium 40 MG Tablet PO (09:29)
[2018-01-09] MEDS: MACITENTAN 10 MG PO (09:29)
[2018-01-09] MEDS: Sertraline 50 MG Tablet PO (09:29)
[2018-01-09] MEDS: APIXABAN 5 MG TABLET PO ×2 (09:30→21:05)
[2018-01-09] MEDS: Senna/Docusate Sodium 1 Tablet PO ×2 (09:30→21:08)
--- NOTE | 2018-01-09 11:02 | CASEMGMT ---
BARNEY CM chart review: Day 6-tx for resp failure. Continues to need Bipap and high flow NC w/NRB mask intermittently to maintain saturations while awake. Started on Eliquis and amiodarone po for A-flutter. Per [employer]: Eliquis is preferred brand drug and does not require prior authorization. DC PLAN: TCU vs Home w/HHS. Consideration for SNF stay due to deconditioning. Thai BARNES RN ACM
[2018-01-09 11:35] LABS: Bedside Glucose 127 mg/dL (70-110)
[2018-01-09 16:21] LABS: Bedside Glucose 121 mg/dL (70-110)
--- NOTE | 2018-01-09 17:37 | PCM.PROGNOTE ---
Subjective: Patient was seen and examined today in ICU, he appears comfortable on 100% oxygen, patient wears to be in A-flutter at this time but the rate is controlled. Patient will undergo cardioversion tomorrow. I discussed his care with pulmonary medicine today. - Physical Exam General: Alert, Oriented x3, Cooperative, No apparent distress, Well developed HEENT: Atraumatic, PERRLA, EOMI, Normocephalic Oral: Moist Mucosa Neck: Supple, No JVD, Negative Carotid Bruits, No Nuchal Rigidity, Trachea Midline, Thyroid Normal Size and Texture Lungs: Clear to auscultation, No rhonchi, No wheeze, No rales, Diminished Cardiovascular: No murmurs, PMI Normal, Irregular Rate, No rub noted Abdomen: Bowel Sounds Present, Soft, Non Tender, Non-Distended, No hernias noted Extremities: No clubbing, No cyanosis, No edema, Capillary Refill Less than 3 Seconds Skin: No rashes, No breakdown Musculoskeletal: No Tenderness to Palpation of Joints or Extremities Neurological: Cranial nerves II-XII grossly intact, Neuro grossly intact, Sensory exam intact to light touch and pain, Coordination normal Psych/Mental Status: Normal Affect, Appropriate, Alert and oriented to time, place, person, mood and affect Vital Signs Temp Pulse Resp BP Pulse Ox 97.4 F L 75 21 H 119/80 82 01/09/18 16:00 01/09/18 17:00 01/09/18 17:00 01/09/18 17:00 01/09/18 17:00 Oxygen Flow Rate (L/min) 10 Oxygen Delivery Method Non-Rebreather Weight: 75.8 kg Body Mass Index (BMI) 23.2 Intake and Output for Last 24 Hours 01/07/18 01/08/18 01/09/18 23:59 23:59 23:59 Intake Total 1416 / 1416 1380 / 1380 320 / 320 Output Total 1325 / 1325 700 / 700 600 / 600 Balance 91 / 91 680 / 680 -280 / -280 Microbiology Past 72 Hours 01/07/18 17:30 Stool Occult Blood (TIM) - Final Stool POC Glucose 01/09/18 01/09/18 01/09/18 16:16 11:28 07:33 POC Glucose 121 H 127 H 111 H 01/08/18 21:15 POC Glucose 153 H Medical Necessity - Tobacco Use Smoking Status: Former smoker Assessment/Plan #1 acute on chronic hypoxic respiratory failure-actual etiology unclear at this point, continue present care in ICU, patient is still on high flow oxygen, pulmonary medicine is participating in his care #2 chronic obstructive pulmonary disease-continue present care #3 pulmonary hypertension #4 type 2 diabetes #5 cor pulmonale #6 atrial flutter- patient will undergo cardioversion tomorrow Code Visit Inpatient E&M: 52141 Subs Hosp L2
--- NOTE | 2018-01-09 18:55 | ECHOTEE_ITS ---
Reason For Study: A. fib/flutter Medication MICHELLE probe passed without difficulty. No complications were noted. Cetacaine Topical [place] given X3 orally. No sedation used due to hypotension. Left Ventricle Normal LV size. Left ventricular systolic function is normal. The estimated ejection fraction is 55 %. No regional wall motion abnormalities noted. Right Ventricle Mildly dilated right ventricle. Moderate global right ventricular systolic dysfunction. Atria Probable patent foramen ovale. The left atrium is moderately enlarged. No thrombus is detected in the left atrial appendage. Normal right atrium. Mitral Valve Bileaflet diffuse mitral valve thickening. Mild (1+) eccentric mitral valve insufficiency. Tricuspid Valve Normal tricuspid valve. Mild to moderate (1-2+) tricuspid valve insufficiency. Aortic Valve Trisinus/trileaflet aortic valve. Pulmonic Valve Normal pulmonic valve. Vessels Normal aortic root. Pericardium No pericardial effusion. Interpretation Summary Normal LV size. Left ventricular systolic function is normal. The estimated ejection fraction is 55 %. Mild to moderate (1-2+) tricuspid valve insufficiency. Mild (1+) eccentric mitral valve insufficiency. No thrombus is detected in the left atrial appendage. Ordering Physician: Elieser Villanueva Referring Physician: DANIELLE Couch M.D. Performed By: Ayde Rossi RDCS
--- NOTE | 2018-01-09 18:55 | EKG12_ITS ---
Test Reason : AM EG Blood Pressure : / mmHG Vent. Rate : 064 BPM Atrial Rate : 071 BPM P-R Int : 220 ms QRS Dur : 102 ms QT Int : 400 ms P-R-T Axes : 235 105 042 degrees QTc Int : 412 ms Atrial flutter with variable block Right ventricular hypertrophy with repolarization abnormality Septal infarct , age undetermined Abnormal ECG When compared with ECG of 06-JAN-2018 03:30, MANUAL COMPARISON REQUIRED, DATA IS UNCONFIRMED Confirmed by NATALIA MCRAE, NALINI ([id number]), editor map MIGUEL A FOLEY ([id number]) on 01/12/2018 3:54:02 PM Referred By: NATALIA Confirmed By:NALINI FISHER MD
--- NOTE | 2018-01-09 18:59 | NURSING ---
nuvia Quintana's charting and agree with assessments
[2018-01-09] MEDS: MELATONIN 10 MG TABLET PO (21:04)
[2018-01-09] MEDS: Atorvastatin Calcium 20 MG Tablet PO (21:05)
[2018-01-09] MEDS: Mirtazapine 15 MG Tablet 7.5 MG PO (21:08)
[2018-01-09 21:20] LABS: Bedside Glucose 162 mg/dL (70-110)
[2018-01-10] VITALS (47 sets, daily range): BP systolic 76–123; BP diastolic 47–79; PULSE 65–80; RESP 12–87; TEMP 36.5–37.1; O2SAT 79–97
[2018-01-10] MEDS: Ipratropium/Albuterol Sulfate 3 ML AMPUL.NEB INHALATION ×3 (06:26→19:01)
[2018-01-10 06:30] LABS: Bedside Glucose 106 mg/dL (70-110)
--- NOTE | 2018-01-10 06:48 | PN_ITS ---
Subjective: The patient was seen and examined at the bedside this morning. Events from the last 24 hours have been reviewed. The patient is currently afebrile with controlled heart rates. Blood pressures remain labile. The patient is currently off of BiPAP and is maintaining oxygen saturations on a combination of a nonrebreather and nasal cannula. The patient shortness of breath remains largely unchanged. He denies the presence of a cough or chest pain. Objective: The patient's most recent lab work, culture data and imaging studies have all been personally reviewed. General: Alert, Cooperative, No apparent distress HEENT: Atraumatic, PERRLA, Normocephalic Oral: No Gingival or Mucosal Lesions/ Ulcerations Neck: Supple, No Nodes, Trachea Midline Lungs: No rhonchi, No wheeze, No rales, Diminished Cardiovascular: Normal S1, Normal S2, Irregular Rate, Murmur, No rub noted, No Gallop Abdomen: Bowel Sounds Present, Soft, Non Tender Extremities: No cyanosis, Clubbing, Edema Skin: No rashes, No breakdown Musculoskeletal: Cachexia, Muscle Wasting Lymphatic: No Cervical, Supraclavicular, or Inguinal Adenopathy Neurological: Neuro grossly intact Psych/Mental Status: Flat Affect Vital Signs Temp Pulse Resp BP Pulse Ox 98.4 F 67 18 87/57 L 91 01/10/18 00:00 01/10/18 06:00 01/10/18 06:00 01/10/18 06:00 01/10/18 06:00 Oxygen Flow Rate (L/min) 10 Oxygen Delivery Method Non-Rebreather Weight: 168 lb 10.458 oz Body Mass Index (BMI) 23.2 Intake and Output for Last 24 Hours 01/08/18 01/09/18 01/10/18 23:59 23:59 23:59 Intake Total 1380 / 1380 766.6 / 766.6 92 / 92 Output Total 700 / 700 1200 / 1200 275 / 275 Balance 680 / 680 -433.4 / -433.4 -183 / -183 Labs (Last 48 Hours) 01/08/18 01/08/18 01/08/18 08:24 11:21 16:48 POC Glucose 148 H 144 H 125 H 01/08/18 01/09/18 01/09/18 21:15 07:33 11:28 POC Glucose 153 H 111 H 127 H 01/09/18 01/09/18 01/10/18 16:16 21:12 06:25 POC Glucose 121 H 162 H 106 Labs (Last 48 Hours) 01/08/18 01/08/18 01/08/18 08:24 11:21 16:48 POC Glucose 148 H 144 H 125 H 01/08/18 01/09/18 01/09/18 21:15 07:33 11:28 POC Glucose 153 H 111 H 127 H 01/09/18 01/09/18 01/10/18 16:16 21:12 06:25 POC Glucose 121 H 162 H 106 Clinical Impression(s) from Imaging Studies Chest X-Ray 01/03/18 14:01 IMPRESSION: Progressive increased markings at the lung bases worse on the right side with blunting of the right costophrenic angle. This may represent either progressive scarring or superimposed infiltration at the right lung base. Electronically Signed: Donnie Jeffrey MD at 14:43 EDT Tel [phone], Service support , Chest CT 01/03/18 14:49 IMPRESSION: Marked degree of emphysematous changes. Small right pleural effusion with underlying bibasilar atelectasis and/or scarring worse on the left side. Electronically Signed: Donnie Jeffrey MD at 15:45 EDT Tel [phone], Service support , Medical Necessity - Tobacco Use Smoking Status: Former smoker Assessment/Plan RECOMMENDATIONS: 1. Continue amiodarone and beta-jay per cardiology recommendations 2. Proceed with MICHELLE cardioversion 3. Continue aerosol treatments 4. Continue Eliquis 5. Continue Opsumit and Tadalafil 6. Increase Remeron dose 7. Wean oxygen to maintain saturations 85-88% 8. Will transition the patient over to liquid oxygen therapy upon discharge from the hospital 9. Follow-up with [facility] pulmonary hypertension clinic as scheduled. IMPRESSIONS: 1. Acute on chronic hypoxic respiratory failure Patient with new onset atrial flutter leading to decompensated cor pulmonale. The patient's heart rate is currently under control with use of a beta-jay. She remains on amiodarone. There are plans to proceed with a MICHELLE cardioversion today. Continue Eliquis as ordered. No additional diuretics for now. Wean supplemental oxygen to maintain saturations 85-88%. Will transition the patient over to liquid oxygen upon discharge from the hospital. 2. Known COPD and pulmonary hypertension Patient has been seen by pulmonary hypertension specialist at [facility]. Patient should continue with baseline medications for pulmonary hypertension. Currently on aerosols. 3. Cor pulmonale secondary to severe pulmonary hypertension/new onset atrial flutter Elevated BNP and marginal troponin likely secondary to right heart strain, not left heart strain. Does have significantly enlarged atria. It is unclear if patient maintain normal sinus rhythm if cardioverted, but I agree with cardiology in the attempt of cardioversion if there is no clots noted on MICHELLE. 4. Allergic rhinitis/postnasal drip syndrome Continue Flonase 2 sprays in each nostril daily. 5. Severe debility/hyperlipidemia/GERD/diabetes Complicates care, management, recovery and prognosis. Patient on sliding scale insulin coverage. Will increase Remeron dose given poor appetite and p.o. intake. 6. Lung nodule Patient does have a history of cancer in the past. He is aware of the lung nodule, but given comorbid factors, biopsy is likely not appropriate and can lead to significant complications. Current perception is that the risk is greater than benefit in patients morbidity and mortality is more closely linked to his severe pulmonary hypertension and emphysema. 7. CODE STATUS: DNR CCA without intubation This note was generated with [employer] dictation software. It may contain incorrect words, spelling, and punctuation that were not noted in checking the note before signing. ADDENDUM: I personally provided bedside conscious sedation support to Dr. Villanueva during the patient's cardioversion this morning. He received a total of 4 mg of etomidate, after which time, he received a 200 J synchronized cardioversion, which was successful in restoring normal sinus rhythm. Code Visit Inpatient E&M: 19283 Subs Hosp L3
--- NOTE | 2018-01-10 09:45 | CASEMGMT ---
Per interdisciplinary rounds, pt may need new oxygen set up to Liquid Oxygen from standard oxygen @ home. BARNEY RAMIREZ called to [facility]. Liquid oxygen can be provided to allow for higher flow requirements and can be billed to insurance. New script would be required. Highest flow that can be provided is 15L by use of two tanks which would last 3.5 days. Regular mask can be used, or for higher concentration, Oxymask or pendant mask can be used. They cost approx $60 and are not covered under insurance. Portable liquid oxygen tanks would last approx 2 hours. -Dr. Carter updated on above. Discussed pt expectations and possible Hospice discussion w/physician. -Pt has bed availability on TCU and this is recommended by CM for short term prior to home to stabilize resp status and wean pt to oxygen requirements that are able to be provided by the liquid oxygen at home -Pt is active with Palliative Care. .Tahi BARNES RN ACM
--- NOTE | 2018-01-10 10:05 | NURSING ---
Dr. Carter and Dr. Villanueva at bedside for cardioverson 1007 - 4mg Etomidate given by BARNEY Sevilla. 1010- 200j synchronized cardioverson done by Dr. Villanueva. Pt tolerated well. NSR per monitor. HR 70's. BP 94/65
[2018-01-10] MEDS: Etomidate 20 MG/10 ML Vial 4 MG IV (10:07)
[2018-01-10] MEDS: 0.9% NaCl Peripheral Flush Adult/Peds IV (10:20)
[2018-01-10] MEDS: CHLORHEXIDINE GLUC 2% CLOTH 1 EACH TOWELETTE TOPICAL (10:56)
[2018-01-10] MEDS: Amiodarone 200 MG Tablet 400 MG PO ×2 (10:56→21:14)
[2018-01-10] MEDS: Metoprolol Tartrate 25 MG Tablet PO ×2 (10:57→21:14)
[2018-01-10] MEDS: MACITENTAN 10 MG PO (10:58)
[2018-01-10] MEDS: TADALAFIL 20 MG TABLET 40 MG PO (10:58)
[2018-01-10] MEDS: Pantoprazole Sodium 40 MG Tablet PO (10:58)
[2018-01-10] MEDS: APIXABAN 5 MG TABLET PO ×2 (10:58→21:15)
[2018-01-10] MEDS: Aspirin 81 MG TAB.CHEW PO (10:59)
[2018-01-10] MEDS: Sertraline 50 MG Tablet PO (10:59)
[2018-01-10] MEDS: Senna/Docusate Sodium 1 Tablet PO ×2 (10:59→21:14)
[2018-01-10] MEDS: Fluticasone 0.05% 1 SPRAY NASAL.SRY 2 SPRAY NASAL (11:00)
[2018-01-10] MEDS: LORazepam 0.5 MG Tablet PO (11:01)
[2018-01-10 11:15] LABS: Bedside Glucose 86 mg/dL (70-110)
--- NOTE | 2018-01-10 12:41 | PCM.PN.CARD ---
Subjectve: Patient seen and evaluated. Objective: Vital Signs Temp Pulse Resp BP Pulse Ox 98.7 F 77 19 H 103/76 88 01/10/18 12:00 01/10/18 12:00 01/10/18 12:00 01/10/18 12:00 01/10/18 12:00 Oxygen Flow Rate (L/min) 15 Oxygen Delivery Method Non-Rebreather Weight: 168 lb 10.458 oz Body Mass Index (BMI) 23.2 Intake and Output for Last 24 Hours 01/08/18 01/09/18 01/10/18 23:59 23:59 23:59 Intake Total 1380 / 1380 766.6 / 766.6 501 / 501 Output Total 700 / 700 1200 / 1200 600 / 600 Balance 680 / 680 -433.4 / -433.4 -99 / -99 General: Awake, Alert, Oriented x 3, Ill Appearing HEENT: PERRL, EOMI, Sclera Non Icteric Neck: Supple, Good ROM, No Lymph Node Enlargement Lungs: Clear to auscultation Cardiovascular: Irregular Rhythm, Normal S1, Normal S2, No Murmurs, No Rubs, No Gallops Vascular: No Carotid Bruits, Normal Femoral Pulses, Normal Radial Pulses, Normal Dorsalis Pedal Pulse, Normal Posterior Tibial Pulses Abdomen: Bowel Sounds Present, Soft, Non Tender, No HSM, No Organomegaly Extremities: No Cyanosis, No Clubbing, No edema Neurological: No Focal Motor or Sensory Deficit Rhythm: EKG: ECHO: Stress Test: Cardiac Cath: PCI: CT Surgery: Holter monitor: EPS: PPM: CXR: Chest CT Scan: Medical Necessity - Tobacco Use Smoking Status: Former smoker Assessment/Plan 1. Atrial flutter: Patient appears to present with atrial flutter which appears to be of new onset, however I am uncertain when it started. He was started on metoprolol 25 mg twice a day Eliquis 5 mg twice a day Amiodarone 400 mg twice a day for 72 hours then 200 mg twice a day for 2 weeks then 200 mg daily. He underwent a transesophageal echocardiogram this morning which demonstrated no evidence of left atrial appendage thrombus. And the plan was to proceed with DC cardioversion. Operative note. He underwent DC cardioversion after sedation with 4 mg of intravenous etomidate by Dr. Carter of the critical care division. AP pads were applied and 200 J of DC cardioversion energy were applied with prompt reversal to sinus rhythm. The plan will be to continue him on amiodarone and beta-jay as outlined above. Patient tolerated the procedure well. 2. Pulmonary hypertension: Patient appears to have pulmonary hypertension out of proportion to his COPD, and there is some concern the patient may have a PFO or ASD with concomitant left right shunting which may have contributed to the patient's right-sided volume and pressure overload. I am pleased to see that his pulmonary pressures have markedly improved since September 2016 with the administration of Adcirca and OPSUMIT. Thank you for allowing me to participate in the care of your patient. Please don't hesitate to call if any issues arise
--- NOTE | 2018-01-10 16:12 | PCM.PROGNOTE ---
Subjective: Patient seen and examined this morning, he was subsequently cardioverted later this morning and has remained in sinus rhythm since then. The time of my examination, patient voices no complaints this examiner, he's still on high flow oxygen. - Physical Exam General: Alert, Oriented x3, Cooperative, No apparent distress, Well developed HEENT: Atraumatic, PERRLA, EOMI, Normocephalic Oral: Moist Mucosa Neck: Supple, No JVD, Negative Carotid Bruits, No Nuchal Rigidity, Trachea Midline, Thyroid Normal Size and Texture Lungs: Clear to auscultation, No rhonchi, No wheeze, No rales, Diminished Cardiovascular: Regular rate, Regular Rhythm, Normal S1, Normal S2, No murmurs, No Ectopic Activity, PMI Normal, No rub noted, No Gallop Abdomen: Bowel Sounds Present, Soft, Non Tender, Non-Distended, No hernias noted Extremities: No clubbing, No cyanosis, No edema, Capillary Refill Less than 3 Seconds Skin: No rashes, No breakdown Musculoskeletal: No Tenderness to Palpation of Joints or Extremities Neurological: Cranial nerves II-XII grossly intact, Neuro grossly intact, Sensory exam intact to light touch and pain Psych/Mental Status: Normal Affect, Appropriate, Alert and oriented to time, place, person, mood and affect Vital Signs Temp Pulse Resp BP Pulse Ox 98.7 F 66 18 76/57 L 83 01/10/18 12:00 01/10/18 15:00 01/10/18 14:00 01/10/18 15:00 01/10/18 15:00 Oxygen Flow Rate (L/min) 10 Oxygen Delivery Method Nasal Cannula Weight: 76.5 kg Body Mass Index (BMI) 23.2 Intake and Output for Last 24 Hours 01/08/18 01/09/18 01/10/18 23:59 23:59 23:59 Intake Total 1380 / 1380 766.6 / 766.6 501 / 501 Output Total 700 / 700 1200 / 1200 600 / 600 Balance 680 / 680 -433.4 / -433.4 -99 / -99 Microbiology Past 72 Hours 01/07/18 17:30 Stool Occult Blood (TIM) - Final Stool POC Glucose 01/10/18 01/10/18 01/09/18 11:05 06:25 21:12 POC Glucose 86 106 162 H 01/09/18 16:16 POC Glucose 121 H Medical Necessity - Tobacco Use Smoking Status: Former smoker Assessment/Plan #1 acute on chronic hypoxic respiratory failure-actual etiology unclear at this point, continue present care in ICU, patient is still on high flow oxygen, pulmonary medicine is participating in his care #2 chronic obstructive pulmonary disease-continue present care #3 pulmonary hypertension #4 type 2 diabetes #5 cor pulmonale #6 atrial flutter- converted to normal sinus rhythm, cardiology is participating in his care Code Visit Inpatient E&M: 46494 Subs Hosp L2
--- NOTE | 2018-01-10 18:24 | NURSING ---
nuvia Gutierrez charting and agree with findings
[2018-01-10] MEDS: Glucerna Shake 120 ML LIQUID PO (21:13)
[2018-01-10] MEDS: MELATONIN 10 MG TABLET PO (21:15)
[2018-01-10] MEDS: Atorvastatin Calcium 20 MG Tablet PO (21:15)
[2018-01-10] MEDS: Mirtazapine 15 MG Tablet PO (21:15)
[2018-01-10] MEDS: Sodium Chloride 0.65% 1 SPRAY SPRAY.BTL 2 SPRAY NASAL (21:19)
--- NOTE | 2018-01-10 21:48 | NURSING ---
Pt was offered Oral care and Angella/Catheter care at this time and refused both.
[2018-01-11] VITALS (32 sets, daily range): BP systolic 72–112; BP diastolic 40–69; PULSE 62–82; RESP 12–21; TEMP 36.3–37.4; O2SAT 82–92
[2018-01-11] MEDS: 0.9% NaCl Peripheral Flush Adult/Peds IV (04:43)
[2018-01-11 05:35] LABS: Absolute Lymphocyte Count 0.89 X10^3/ul (0.83-4.51); Absolute Neutrophil Count 6.7 X10^3/uL (2.0-7.7); Basophil# 0.01 X10^3/uL; Basophil% 0.1 % (0-1); Eosinophil# 0.19 X10^3/uL; Eosinophils% 2.1 % (0-5); Hematocrit 41.7 % (40-54); Hemoglobin 12.9 g/dl (13.0-16.5); Lymphocyte # 0.89 X10^3/ul (4.0); Lymphocyte % 9.8 % (19-41); Mean Corp Hgb Conc 30.9 g/gl (32-36); Mean Corpuscular Hgb 20.4 pg (27.0-32.0); Mean Corpuscular Volume 65.9 fL (80-94); Monocyte# 1.25 X10^3/uL; Monocyte% 13.8 % (0-10); Neutrophil # 6.69 X10^3/uL (2.7-7.7); Neutrophil % 74.1 % (47-70); Platelet Count 220 K/mm3 (150-450); RBC Distribution Width CV 21.9 % (11.6-14.6); RBC Distribution Width SD 49.7 fl (35.1-43.9); Red Blood Count 6.33 M/mm3 (4.6-6.2)
[2018-01-11 05:36] LABS: Differential Indicated SCAN CRITERIA MET; POSITIVE COUNT NO; POSITIVE DIFFERENTIAL NO; POSITIVE MORPHOLOGY YES
[2018-01-11 05:37] LABS: Anisocytosis 1+; Differential Comment SCAN; Hypochromasia 1+; Platelet Estimate ADEQUATE (ADEQ); Platelet Morphology LARGE; Polychromasia 1+
--- NOTE | 2018-01-11 05:55 | EKG12_ITS ---
Test Reason : AM EKG Blood Pressure : / mmHG Vent. Rate : 065 BPM Atrial Rate : 065 BPM P-R Int : 190 ms QRS Dur : 102 ms QT Int : 432 ms P-R-T Axes : 065 101 046 degrees QTc Int : 449 ms Normal sinus rhythm ST & T wave abnormality, consider anterior ischemia Abnormal ECG When compared with ECG of 10-JAN-2018 05:06, MANUAL COMPARISON REQUIRED, DATA IS UNCONFIRMED Confirmed by NATALIA MCRAE, NALINI ([id number]), production editor MIGUEL A FOLEY ([id number]) on 01/16/2018 2:06:39 PM Referred By: PADMINI Confirmed By:NALINI FISHER MD
[2018-01-11 06:52] LABS: Anion Gap 9 (5-15); BUN 51 mg/dL (7-18); BUN/Creat Ratio 41.5 RATIO (10-20); Calcium,Total 8.4 mg/dL (8.5-10.1); Chloride 110 mmol/L (98-107); Creatinine, Serum 1.23 mg/dL (0.70-1.30); EST Glomerular Filtration Rate 61 mL/min (>60); Est Glom Filt Rate - Afr Amer 74 mL/min (>60); Estimated Creatinine Clearance 53.58 ml/min; Glucose 100 mg/dL (74-106); Potassium 4.5 mmol/L (3.5-5.1); Sodium Level 143 mmol/L (136-145)
[2018-01-11] MEDS: Ipratropium/Albuterol Sulfate 3 ML AMPUL.NEB INHALATION ×3 (06:53→19:25)
--- NOTE | 2018-01-11 06:55 | PCM.PN.INT ---
Subjective: The patient was seen and examined at the bedside this morning. Events from the last 24 hours have been reviewed. The patient is currently afebrile, hemodynamically stable and continues to require high flow supplemental oxygen. The patient did not eat anything yesterday but states that he is willing to attempt to eat some lunch today. A call was made to the patient's DME provider to arrange for the delivery of liquid oxygen and high flow cannula. In addition, I did reach out to the office of Dr. Bill Tovar at the [facility] regarding the patient's current clinical state. I did express my concerns as to whether he would be a candidate for continuous IV vasodilator therapy. There is some concern that given his lack of clinical response to OPSUMIT, he may not respond well to the aforementioned therapy. The case is going to be discussed further with Dr. Tovar. Objective: The patient's most recent lab work, culture data and imaging studies have all been personally reviewed. Surface echocardiogram completed on January 05 revealed the presence of an ejection fraction of 75%, along with a severely dilated RV and moderate global RV systolic dysfunction. There was evidence of biatrial enlargement with 3+ tricuspid valve insufficiency and a right ventricular systolic pressure estimated to be 61 mmHg. General: Alert, Cooperative, - - Chronically ill and debilitated in appearance HEENT: Atraumatic, PERRLA, Normocephalic Oral: Dry Mucosa Neck: Supple, No Nodes, Trachea Midline Lungs: No rhonchi, No wheeze, No rales, Diminished, Short of Breath Cardiovascular: Regular rate, Regular Rhythm, Normal S1, Normal S2, Murmur, No rub noted, No Gallop, - - Remains in normal sinus rhythm on telemetry Abdomen: Bowel Sounds Present, Soft, Non Tender Extremities: No cyanosis, Clubbing, Edema Skin: No rashes, No breakdown Musculoskeletal: Cachexia, Muscle Wasting Lymphatic: No Cervical, Supraclavicular, or Inguinal Adenopathy Neurological: Neuro grossly intact Psych/Mental Status: Flat Affect, Depressed Vital Signs Temp Pulse Resp BP Pulse Ox 98.5 F 68 20 H 99/61 86 01/11/18 00:00 01/11/18 06:00 01/11/18 06:00 01/11/18 06:00 01/11/18 06:00 Oxygen Flow Rate (L/min) 10 Oxygen Delivery Method Bi-pap Weight: 167 lb 12.348 oz Body Mass Index (BMI) 23.2 Intake and Output for Last 24 Hours 01/09/18 01/10/18 01/11/18 23:59 23:59 23:59 Intake Total 766.6 / 766.6 501 / 501 Output Total 1200 / 1200 750 / 750 150 / 150 Balance -433.4 / -433.4 -249 / -249 -150 / -150 Labs (Last 48 Hours) 01/09/18 01/09/18 01/09/18 07:33 11:28 16:16 WBC RBC Hgb Hct MCV MCH MCHC RDW RDW Differential Plt Count Immature Gran % (Auto) Neut % (Auto) Lymph % (Auto) Dawson % (Auto) Eos % (Auto) Baso % (Auto) Absolute Neuts (auto) Absolute Lymphs (auto) Total Counted Differential Comment Platelet Estimate Plt Morphology Comment Polychromasia Hypochromasia Anisocytosis Sodium Potassium Chloride Carbon Dioxide Anion Gap BUN Creatinine Estim Creat Clear Calc Est GFR (MDRD) Af Amer Est GFR (MDRD) Non-Af BUN/Creatinine Ratio Glucose Calcium POC Glucose 111 H 127 H 121 H 01/09/18 01/10/18 01/10/18 21:12 06:25 11:05 WBC RBC Hgb Hct MCV MCH MCHC RDW RDW Differential Plt Count Immature Gran % (Auto) Neut % (Auto) Lymph % (Auto) Dawson % (Auto) Eos % (Auto) Baso % (Auto) Absolute Neuts (auto) Absolute Lymphs (auto) Total Counted Differential Comment Platelet Estimate Plt Morphology Comment Polychromasia Hypochromasia Anisocytosis Sodium Potassium Chloride Carbon Dioxide Anion Gap BUN Creatinine Estim Creat Clear Calc Est GFR (MDRD) Af Amer Est GFR (MDRD) Non-Af BUN/Creatinine Ratio Glucose Calcium POC Glucose 162 H 106 86 01/11/18 01/11/18 04:35 04:35 WBC 9.0 RBC 6.33 H Hgb 12.9 L Hct 41.7 MCV 65.9 L MCH 20.4 L MCHC 30.9 L RDW 21.9 H RDW Differential 49.7 H Plt Count 220 Immature Gran % (Auto) 0.100 Neut % (Auto) 74.1 H Lymph % (Auto) 9.8 L Dawson % (Auto) 13.8 H Eos % (Auto) 2.1 Baso % (Auto) 0.1 Absolute Neuts (auto) 6.7 Absolute Lymphs (auto) 0.89 Total Counted Not Reportable Differential Comment SCAN Platelet Estimate ADEQUATE Plt Morphology Comment LARGE Polychromasia 1+ Hypochromasia 1+ Anisocytosis 1+ Sodium 143 Potassium 4.5 Chloride 110 H Carbon Dioxide 24.0 Anion Gap 9 BUN 51 H Creatinine 1.23 Estim Creat Clear Calc 53.58 Est GFR (MDRD) Af Amer 74 Est GFR (MDRD) Non-Af 61 BUN/Creatinine Ratio 41.5 H Glucose 100 Calcium 8.4 L POC Glucose Clinical Impression(s) from Imaging Studies Chest X-Ray 01/03/18 14:01 IMPRESSION: Progressive increased markings at the lung bases worse on the right side with blunting of the right costophrenic angle. This may represent either progressive scarring or superimposed infiltration at the right lung base. Electronically Signed: Donnie Jeffrey MD at 14:43 EDT Tel [phone], Service support , Chest CT 01/03/18 14:49 IMPRESSION: Marked degree of emphysematous changes. Small right pleural effusion with underlying bibasilar atelectasis and/or scarring worse on the left side. Electronically Signed: Donnie Jeffrey MD at 15:45 EDT Tel [phone], Service support , Medical Necessity - Tobacco Use Smoking Status: Former smoker Assessment/Plan RECOMMENDATIONS: 1. Continue amiodarone and beta-jay per cardiology recommendations 2. Continue aerosol treatments 3. Continue Eliquis 4. Continue Opsumit and Tadalafil 5. Encourage p.o. intake 6. Arrange for high flow oxygen system/cannula delivery 7. Wean oxygen to maintain saturations 85-88% 8. Await decision regarding initiation of continuous IV vasodilators from Dr. Bill Tovar at the [facility]. If he is deemed to be a candidate, this would require a transfer the patient to [facility] for initiation of therapy. If he is not a candidate, would need to consider enrollment in hospice. IMPRESSIONS: 1. Acute on chronic hypoxic respiratory failure Patient with new onset atrial flutter leading to decompensated cor pulmonale. The patient is currently status post MICHELLE cardioversion and remains in normal sinus rhythm. Continue amiodarone and beta-jay, per cardiology recommendations. 2. Known COPD and pulmonary arterial hypertension Patient has been seen by pulmonary hypertension specialist at [facility]. Patient should continue with baseline medications for pulmonary hypertension. Currently on aerosols. At this point, given the patient's lack of clinical improvement with use of Opsumit, would need to consider enrollment in hospice if he is not a candidate for more advanced therapy with continuous IV vasodilators. This has been discussed with the office of Dr. Bill Tovar at the [facility]. I am awaiting their return call regarding their decision regarding the appropriateness of this therapy. 3. Cor pulmonale secondary to severe pulmonary hypertension/new onset atrial flutter Elevated BNP and marginal troponin likely secondary to right heart strain, not left heart strain. Continue current medical management following MICHELLE cardioversion. 4. Allergic rhinitis/postnasal drip syndrome Continue Flonase 2 sprays in each nostril daily. 5. Severe debility/hyperlipidemia/GERD/diabetes Complicates care, management, recovery and prognosis. Patient on sliding scale insulin coverage. Will increase Remeron dose given poor appetite and p.o. intake. 6. Lung nodule Patient does have a history of cancer in the past. He is aware of the lung nodule, but given comorbid factors, biopsy is likely not appropriate and can lead to significant complications. Current perception is that the risk is greater than benefit in patients morbidity and mortality is more closely linked to his severe pulmonary hypertension and emphysema. 7. CODE STATUS: DNR CCA without intubation This note was generated with [employer] dictation software. It may contain incorrect words, spelling, and punctuation that were not noted in checking the note before signing. Code Visit Inpatient E&M: 33778 Subs Hosp L3
--- NOTE | 2018-01-11 06:58 | PN_ITS ---
Subjective: The patient was seen and examined at the bedside this morning. Events from the last 24 hours have been reviewed. The patient is currently afebrile, hemodynamically stable and continues to require high flow supplemental oxygen. The patient did not eat anything yesterday but states that he is willing to attempt to eat some lunch today. A call was made to the patient's DME provider to arrange for the delivery of liquid oxygen and high flow cannula. In addition , I did reach out to the office of Dr. Bill Tovar at the [facility] regarding the patient's current clinical state. I did express my concerns as to whether he would be a candidate for continuous IV vasodilator therapy. There is some concern that given his lack of clinical response to OPSUMIT, he may not respond well to the aforementioned therapy. The case is going to be discussed further with Dr. Tovar. Objective: The patient's most recent lab work, culture data and imaging studies have all been personally reviewed. Surface echocardiogram completed on January 05 revealed the presence of an ejection fraction of 75%, along with a severely dilated RV and moderate global RV systolic dysfunction. There was evidence of biatrial enlargement with 3+ tricuspid valve insufficiency and a right ventricular systolic pressure estimated to be 61 mmHg. General: Alert, Cooperative, - - Chronically ill and debilitated in appearance HEENT: Atraumatic, PERRLA, Normocephalic Oral: Dry Mucosa Neck: Supple, No Nodes, Trachea Midline Lungs: No rhonchi, No wheeze, No rales, Diminished, Short of Breath Cardiovascular: Regular rate, Regular Rhythm, Normal S1, Normal S2, Murmur, No rub noted, No Gallop, - - Remains in normal sinus rhythm on telemetry Abdomen: Bowel Sounds Present, Soft, Non Tender Extremities: No cyanosis, Clubbing, Edema Skin: No rashes, No breakdown Musculoskeletal: Cachexia, Muscle Wasting Lymphatic: No Cervical, Supraclavicular, or Inguinal Adenopathy Neurological: Neuro grossly intact Psych/Mental Status: Flat Affect, Depressed Vital Signs Temp Pulse Resp BP Pulse Ox 98.5 F 68 20 H 99/61 86 01/11/18 00:00 01/11/18 06:00 01/11/18 06:00 01/11/18 06:00 01/11/18 06:00 Oxygen Flow Rate (L/min) 10 Oxygen Delivery Method Bi-pap Weight: 167 lb 12.348 oz Body Mass Index (BMI) 23.2 Intake and Output for Last 24 Hours 01/09/18 01/10/18 01/11/18 23:59 23:59 23:59 Intake Total 766.6 / 766.6 501 / 501 Output Total 1200 / 1200 750 / 750 150 / 150 Balance -433.4 / -433.4 -249 / -249 -150 / -150 Labs (Last 48 Hours) 01/09/18 01/09/18 01/09/18 07:33 11:28 16:16 WBC RBC Hgb Hct MCV MCH MCHC RDW RDW Differential Plt Count Immature Gran % (Auto) Neut % (Auto) Lymph % (Auto) Shannon % (Auto) Eos % (Auto) Baso % (Auto) Absolute Neuts (auto) Absolute Lymphs (auto) Total Counted Differential Comment Platelet Estimate Plt Morphology Comment Polychromasia Hypochromasia Anisocytosis Sodium Potassium Chloride Carbon Dioxide Anion Gap BUN Creatinine Estim Creat Clear Calc Est GFR (MDRD) Af Amer Est GFR (MDRD) Non-Af BUN/Creatinine Ratio Glucose Calcium POC Glucose 111 H 127 H 121 H 01/09/18 01/10/18 01/10/18 21:12 06:25 11:05 WBC RBC Hgb Hct MCV MCH MCHC RDW RDW Differential Plt Count Immature Gran % (Auto) Neut % (Auto) Lymph % (Auto) Shannon % (Auto) Eos % (Auto) Baso % (Auto) Absolute Neuts (auto) Absolute Lymphs (auto) Total Counted Differential Comment Platelet Estimate Plt Morphology Comment Polychromasia Hypochromasia Anisocytosis Sodium Potassium Chloride Carbon Dioxide Anion Gap BUN Creatinine Estim Creat Clear Calc Est GFR (MDRD) Af Amer Est GFR (MDRD) Non-Af BUN/Creatinine Ratio Glucose Calcium POC Glucose 162 H 106 86 01/11/18 01/11/18 04:35 04:35 WBC 9.0 RBC 6.33 H Hgb 12.9 L Hct 41.7 MCV 65.9 L MCH 20.4 L MCHC 30.9 L RDW 21.9 H RDW Differential 49.7 H Plt Count 220 Immature Gran % (Auto) 0.100 Neut % (Auto) 74.1 H Lymph % (Auto) 9.8 L Shannon % (Auto) 13.8 H Eos % (Auto) 2.1 Baso % (Auto) 0.1 Absolute Neuts (auto) 6.7 Absolute Lymphs (auto) 0.89 Total Counted Not Reportable Differential Comment SCAN Platelet Estimate ADEQUATE Plt Morphology Comment LARGE Polychromasia 1+ Hypochromasia 1+ Anisocytosis 1+ Sodium 143 Potassium 4.5 Chloride 110 H Carbon Dioxide 24.0 Anion Gap 9 BUN 51 H Creatinine 1.23 Estim Creat Clear Calc 53.58 Est GFR (MDRD) Af Amer 74 Est GFR (MDRD) Non-Af 61 BUN/Creatinine Ratio 41.5 H Glucose 100 Calcium 8.4 L POC Glucose Clinical Impression(s) from Imaging Studies Chest X-Ray 01/03/18 14:01 IMPRESSION: Progressive increased markings at the lung bases worse on the right side with blunting of the right costophrenic angle. This may represent either progressive scarring or superimposed infiltration at the right lung base. Electronically Signed: Donnie Jeffrey MD at 14:43 EDT Tel [phone], Service support , Chest CT 01/03/18 14:49 IMPRESSION: Marked degree of emphysematous changes. Small right pleural effusion with underlying bibasilar atelectasis and/or scarring worse on the left side. Electronically Signed: Donnie Jeffrey MD at 15:45 EDT Tel [phone], Service support , Medical Necessity - Tobacco Use Smoking Status: Former smoker Assessment/Plan RECOMMENDATIONS: 1. Continue amiodarone and beta-jay per cardiology recommendations 2. Continue aerosol treatments 3. Continue Eliquis 4. Continue Opsumit and Tadalafil 5. Encourage p.o. intake 6. Arrange for high flow oxygen system/cannula delivery 7. Wean oxygen to maintain saturations 85-88% 8. Await decision regarding initiation of continuous IV vasodilators from Dr. Bill Tovar at the [facility]. If he is deemed to be a candidate, this would require a transfer the patient to [facility] for initiation of therapy. If he is not a candidate, would need to consider enrollment in hospice. IMPRESSIONS: 1. Acute on chronic hypoxic respiratory failure Patient with new onset atrial flutter leading to decompensated cor pulmonale. The patient is currently status post MICHELLE cardioversion and remains in normal sinus rhythm. Continue amiodarone and beta-jay, per cardiology recommendations. 2. Known COPD and pulmonary arterial hypertension Patient has been seen by pulmonary hypertension specialist at [facility]. Patient should continue with baseline medications for pulmonary hypertension. Currently on aerosols. At this point, given the patient's lack of clinical improvement with use of Opsumit, would need to consider enrollment in hospice if he is not a candidate for more advanced therapy with continuous IV vasodilators. This has been discussed with the office of Dr. Bill Tovar at the [facility]. I am awaiting their return call regarding their decision regarding the appropriateness of this therapy. 3. Cor pulmonale secondary to severe pulmonary hypertension/new onset atrial flutter Elevated BNP and marginal troponin likely secondary to right heart strain, not left heart strain. Continue current medical management following MICHELLE cardioversion. 4. Allergic rhinitis/postnasal drip syndrome Continue Flonase 2 sprays in each nostril daily. 5. Severe debility/hyperlipidemia/GERD/diabetes Complicates care, management, recovery and prognosis. Patient on sliding scale insulin coverage. Will increase Remeron dose given poor appetite and p.o. intake. 6. Lung nodule Patient does have a history of cancer in the past. He is aware of the lung nodule, but given comorbid factors, biopsy is likely not appropriate and can lead to significant complications. Current perception is that the risk is greater than benefit in patients morbidity and mortality is more closely linked to his severe pulmonary hypertension and emphysema. 7. CODE STATUS: DNR CCA without intubation This note was generated with [employer] dictation software. It may contain incorrect words, spelling, and punctuation that were not noted in checking the note before signing. Code Visit Inpatient E&M: 09758 Subs Hosp L3
--- NOTE | 2018-01-11 07:01 | RAD_ITS ---
STUDY: X-RAY CHEST REASON FOR EXAM: Male, 77 years old. Shortness of breath. Acute renal failure. TECHNIQUE: Single AP upright chest exam. COMPARISON: Chest 01/03/2018 and 03/04/2017 FINDINGS: EKG wires and oxygen tubing overlie chest and left shoulder, respectively. The lungs appear fairly well ventilated but show increased interstitial markings of the right greater than left hilum and right greater and left lung base consistent with congestion of CHF/fluid overload superimposed upon COPD. Diffuse increased opacity right lung base also effaces the diaphragm consistent with pleural fluid and atelectasis. Now seen is pleural fluid most likely in the minor fissure. Blurred opacity seen throughout the left lung, greater base than apex most likely due to artifact and respiratory motion. Redemonstration severe biapical hyperexpansion/hyperlucency consistent with COPD noted. Normal size heart. No widening mediastinum seen. Increased visualized pulmonary arteries noted. No change moderate calcified aortic knob. Visualized thoracic spine, ribs, clavicles, and shoulders appear within normal limits. There is no demonstrated abnormality of the visualized soft tissue structures of the upper abdomen. No subdiaphragmatic free air seen grossly. RAD/Chest 1 View (Portable) IMPRESSION: Right greater and left bihilar and bibasal increased interstitial markings most suggestive CHF/fluid overload superimposed upon severe COPD. Superimposed pneumonia, however, cannot be totally excluded without clinical correlation. Right lung base moderate pleural effusion and atelectasis suspected. Recommend follow-up chest exam is clinically indicated for clearing. Electronically Signed: Ted Holden, at 8:46 EDT Tel , Service support ,
--- NOTE | 2018-01-11 09:49 | CASEMGMT ---
Call placed to respiratory therapist, Anton, at [facility]. I reviewed the case with Anton and discussed that we would like to trial the patient on 15L liquid oxygen while he is in the ICU. Oxygen prescription and all pertaining paperwork was faxed to [facility]. Anton will call with update.
[2018-01-11] MEDS: Fluticasone 0.05% 1 SPRAY NASAL.SRY 2 SPRAY NASAL (09:58)
[2018-01-11] MEDS: Glucerna Shake 120 ML LIQUID PO ×4 (09:58→22:20)
[2018-01-11] MEDS: Aspirin 81 MG TAB.CHEW PO (09:59)
[2018-01-11] MEDS: Multivitamins,Ther W-Minerals Tablet 1 TABLET PO (09:59)
[2018-01-11] MEDS: CHLORHEXIDINE GLUC 2% CLOTH 1 EACH TOWELETTE TOPICAL (09:59)
[2018-01-11] MEDS: Calcium Carb/Vitamin D 1 TABLET Tablet PO (09:59)
[2018-01-11] MEDS: Amiodarone 200 MG Tablet 400 MG PO ×2 (09:59→22:21)
[2018-01-11] MEDS: LORazepam 0.5 MG Tablet PO (09:59)
[2018-01-11] MEDS: MACITENTAN 10 MG PO (10:00)
[2018-01-11] MEDS: TADALAFIL 20 MG TABLET 40 MG PO (10:00)
[2018-01-11] MEDS: APIXABAN 5 MG TABLET PO ×2 (10:00→22:21)
[2018-01-11] MEDS: Pantoprazole Sodium 40 MG Tablet PO (10:01)
[2018-01-11] MEDS: Sertraline 50 MG Tablet PO (10:01)
[2018-01-11] MEDS: Senna/Docusate Sodium 1 Tablet PO ×2 (10:01→22:20)
--- NOTE | 2018-01-11 11:03 | CASEMGMT ---
Anton, from [facility], called to inform CM that patient's insurance will not cover liquid oxygen at this flow rate. Anton, respiratory therapist, suggested [address] pendant[address] Carter updated and would like to proceed with this plan. New prescription faxed to [facility].
--- NOTE | 2018-01-11 15:44 | CHAPLAIN ---
Type of Pastoral Visit ___ Initial Visit _x__ Follow-up Visit ___ On-call Visit ___ General Patient Visit ___ Spiritual Assessment ___ Family Conference ___ Bereavement ___ Rapid Response ___ Code Blue ___ Other (describe below) Pastoral Care Referral From _x__ Patient ___ Family ___ Nurse _x__ Physician ___ Human Resources Executive Assistant ___ Tipple Oiler ___ Other (describe below) Sacrament/Intervention _x__ Active listening ___ Anointing ___ Church ___ Bereavement ___ Communion ___ Radha exploration ___ ___ Life review ___ Prayer ___ Reconciliation ___ Sacrament of Sick _x__ Supportive presence ___ Wedding ___ Other (describe below) Pastoral Comments DR informed this platform attendant that patient may be hospice appropriate and decisions are forthcoming soon about pt treatment and care; family members are in hallway and this platform attendant offered support after introductions were made; daughter of pt says that he is putting up a good front with other people but is not doing so well when it is just his family; there were technicians and medical staff in room at time of this visit; visit was brief
--- NOTE | 2018-01-11 17:35 | PCM.PN.CARD ---
Subjectve: Patient seen and evaluated. Appears to be stable. Objective: Vital Signs Temp Pulse Resp BP Pulse Ox 97.3 F L 66 18 89/54 L 87 01/11/18 12:00 01/11/18 15:59 01/11/18 14:00 01/11/18 14:00 01/11/18 14:00 Oxygen Flow Rate (L/min) 10 Oxygen Delivery Method Non-Rebreather Weight: 167 lb 12.348 oz Body Mass Index (BMI) 23.2 Intake and Output for Last 24 Hours 01/09/18 01/10/18 01/11/18 23:59 23:59 23:59 Intake Total 766.6 / 766.6 501 / 501 480 / 480 Output Total 1200 / 1200 750 / 750 550 / 550 Balance -433.4 / -433.4 -249 / -249 -70 / -70 General: Alert, Ill Appearing HEENT: PERRL, EOMI, Sclera Non Icteric Neck: Supple, Good ROM, No Lymph Node Enlargement Lungs: Clear to auscultation Cardiovascular: Regular Rhythm, Normal S1, Normal S2, No Murmurs, No Rubs, No Gallops Vascular: No Carotid Bruits, Normal Femoral Pulses, Normal Radial Pulses, Normal Dorsalis Pedal Pulse, Normal Posterior Tibial Pulses Abdomen: Bowel Sounds Present, Soft, Non Tender, No HSM, No Organomegaly Extremities: No Cyanosis, No Clubbing, No edema Neurological: No Focal Motor or Sensory Deficit 01/11/18 04:35: WBC 9.0, RBC 6.33 H, Hgb 12.9 L, Hct 41.7, MCV 65.9 L, MCH 20.4 L, MCHC 30.9 L, RDW 21.9 H, RDW Differential 49.7 H, Plt Count 220, Immature Gran % (Auto) 0.100, Neut % (Auto) 74.1 H, Lymph % (Auto) 9.8 L, [place] % (Auto) 13.8 H, Eos % (Auto) 2.1, Baso % (Auto) 0.1, Absolute Neuts (auto) 6.7, Total Counted Not Reportable 01/11/18 04:35: Sodium 143, Potassium 4.5, Chloride 110 H, Carbon Dioxide 24.0, Anion Gap 9, BUN 51 H, Creatinine 1.23, Est GFR (MDRD) Af Amer 74, Est GFR (MDRD) Non-Af 61, BUN/Creatinine Ratio 41.5 H, Glucose 100, Calcium 8.4 L Rhythm: EKG: ECHO: Stress Test: Cardiac Cath: PCI: CT Surgery: Holter monitor: EPS: PPM: CXR: Chest CT Scan: Medical Necessity - Tobacco Use Smoking Status: Former smoker Assessment/Plan 1. Atrial flutter: Patient appears to be maintaining normal sinus rhythm. He was started on metoprolol 25 mg twice a day Eliquis 5 mg twice a day Amiodarone 400 mg twice a day for 72 hours then 200 mg twice a day for 2 weeks then 200 mg daily. He underwent a transesophageal echocardiogram which demonstrated no evidence of left atrial appendage thrombus. He underwent DC cardioversion and appears to be doing well. His blood pressure is still somewhat marginal. The dosage of the beta-jay will be reduced he will be continued on his amiodarone. 2. Pulmonary hypertension: Patient appears to have pulmonary hypertension out of proportion to his COPD, and there is some concern the patient may have a PFO or ASD with concomitant left right shunting which may have contributed to the patient's right-sided volume and pressure overload. I am pleased to see that his pulmonary pressures have markedly improved since September 2016 with the administration of Adcirca and OPSUMIT. Thank you for allowing me to participate in the care of your patient. Please don't hesitate to call if any issues arise
--- NOTE | 2018-01-11 19:24 | PCM.PROGNOTE ---
Subjective: Patient seen and examined this morning, he remains on high flow oxygen still, he does remain in sinus rhythm at this time. - Physical Exam General: Alert, Oriented x3, Cooperative, No apparent distress, Well developed HEENT: Atraumatic, PERRLA, EOMI, Normocephalic Oral: Moist Mucosa Neck: Supple, No JVD, No Nuchal Rigidity, Trachea Midline, Thyroid Normal Size and Texture Lungs: Clear to auscultation, No rhonchi, No wheeze, No rales, Diminished Cardiovascular: Regular rate, Regular Rhythm, Normal S1, Normal S2, No murmurs, No Ectopic Activity, PMI Normal, No rub noted, No Gallop Abdomen: Bowel Sounds Present, Soft, Non Tender, Non-Distended, No hernias noted Extremities: No clubbing, No cyanosis, No edema, Capillary Refill Less than 3 Seconds Skin: No rashes, No breakdown Musculoskeletal: No Tenderness to Palpation of Joints or Extremities Neurological: Cranial nerves II-XII grossly intact, Neuro grossly intact, Sensory exam intact to light touch and pain, Coordination normal Psych/Mental Status: Normal Affect, Appropriate, Alert and oriented to time, place, person, mood and affect Vital Signs Temp Pulse Resp BP Pulse Ox 98.5 F 82 18 99/59 L 85 01/11/18 16:00 01/11/18 18:00 01/11/18 18:00 01/11/18 18:00 01/11/18 18:00 Oxygen Flow Rate (L/min) 10 Oxygen Delivery Method Non-Rebreather Weight: 76.1 kg Body Mass Index (BMI) 23.2 Intake and Output for Last 24 Hours 01/09/18 01/10/18 01/11/18 23:59 23:59 23:59 Intake Total 766.6 / 766.6 501 / 501 960 / 960 Output Total 1200 / 1200 750 / 750 600 / 600 Balance -433.4 / -433.4 -249 / -249 360 / 360 Laboratory Tests Past 24 Hrs 01/11/18 01/11/18 04:35 04:35 WBC 9.0 RBC 6.33 H Hgb 12.9 L Hct 41.7 MCV 65.9 L MCH 20.4 L MCHC 30.9 L RDW 21.9 H RDW Differential 49.7 H Plt Count 220 Immature Gran % (Auto) 0.100 Neut % (Auto) 74.1 H Lymph % (Auto) 9.8 L [place] % (Auto) 13.8 H Eos % (Auto) 2.1 Baso % (Auto) 0.1 Absolute Neuts (auto) 6.7 Absolute Lymphs (auto) 0.89 Total Counted Not Reportable Differential Comment SCAN Platelet Estimate ADEQUATE Plt Morphology Comment LARGE Polychromasia 1+ Hypochromasia 1+ Anisocytosis 1+ Sodium 143 Potassium 4.5 Chloride 110 H Carbon Dioxide 24.0 Anion Gap 9 BUN 51 H Creatinine 1.23 Estim Creat Clear Calc 53.58 Est GFR (MDRD) Af Amer 74 Est GFR (MDRD) Non-Af 61 BUN/Creatinine Ratio 41.5 H Glucose 100 Calcium 8.4 L Medical Necessity - Tobacco Use Smoking Status: Former smoker Assessment/Plan #1 acute on chronic hypoxic respiratory failure-actual etiology unclear at this point, continue present care in ICU, patient is still on high flow oxygen, pulmonary medicine is participating in his care, his respiratory status remains tenuous at this time #2 chronic obstructive pulmonary disease-continue present care #3 pulmonary hypertension #4 type 2 diabetes #5 cor pulmonale #6 atrial flutter- converted to normal sinus rhythm, cardiology is participating in his care Code Visit Inpatient E&M: 78892 Subs Hosp L2
[2018-01-11] MEDS: MELATONIN 10 MG TABLET PO (22:21)
[2018-01-11] MEDS: Mirtazapine 15 MG Tablet PO (22:21)
[2018-01-11] MEDS: Atorvastatin Calcium 20 MG Tablet PO (22:21)
[2018-01-12] VITALS (37 sets, daily range): BP systolic 88–135; BP diastolic 47–72; PULSE 63–91; RESP 12–27; TEMP 36.8–37.1; O2SAT 71–90
--- NOTE | 2018-01-12 00:30 | CPS ---
added heated humidity to bipap circuit.
[2018-01-12] MEDS: Ipratropium/Albuterol Sulfate 3 ML AMPUL.NEB INHALATION ×3 (06:37→18:50)
--- NOTE | 2018-01-12 06:50 | PCM.PN.INT ---
Subjective: The patient was seen and examined at the bedside this morning. Events from the last 24 hours have been reviewed. There have been no interval changes overnight with the exception of continued hypoxia and high oxygen requirement. The patient did have urinary retention upon removal of his Jovel catheter yesterday, for which a catheter had to be replaced this morning. I did speak with the [facility] pulmonary hypertension team last evening, under the direction of Dr. Bill Tovar, who indicated that they are willing to accept the patient for consideration of initiation of inhaled/IV prostacyclin therapy. The patient and his wanted to wait until this morning to have a discussion before agreeing to the transfer. Attempts were made yesterday to obtain liquid oxygen for the patient. However, his insurance company denied the claim. Pertinent Hx from Outpatient Documentation: If you recall, I initially met the patient in May 2016 when he was admitted to the ICU with acute on chronic respiratory failure and presumed diastolic heart failure with exacerbation. His surface echocardiogram at that time revealed intact systolic function with an RVSP estimated to be 75 mmHg. Pulmonary function testing from July 2015 showed evidence of mild COPD without a significant bronchodilator response. There was a corresponding severe reduction in diffusing capacity noted. The patient did have a VQ scan in July 2015 which showed very low probability for PE. CTA chest from May 2016 did demonstrate hyperinflated lung zaldivar with diffuse emphysematous changes and bibasilar scarring. He does have a history of non-small cell carcinoma. Repeat pulmonary function testing from September 2016 again revealed the presence of a mild irreversible large airways obstructive ventilatory defect with associated hyperinflation and severe reduction in diffusing capacity. It was notable that the patient's PFTs did demonstrate a 20% reduction in diffusing capacity since that was completed in 2014. He has required 6+ L of supplemental oxygen at his baseline for quite some time. He has had a negative rheumatologic and vasculitis workup. A follow-up PET scan completed in mid November 2016 demonstrated the presence of increased glucose concentration in the right upper posterior hemithorax, which filled criteria for viable neoplasm. However, following a discussion with oncology, the patient was never deemed to be appropriate for any additional workup or treatment, given his tenuous clinical state. The patient was referred to the [facility] for evaluation by Dr. Bill Tovar of the pulmonary hypertension clinic. Due to the presence of progressive respiratory decline, the patient was also initiated on a trilogy noninvasive positive pressure ventilator in his home environment. To date, the patient has been prescribed both Adcirca and OPSUMIT for his underlying pulmonary arterial hypertension. However, he continues to experience progressive clinical decline and profound exertional dyspnea and hypoxia. Objective: The patient's most recent lab work, culture data and imaging studies have all been personally reviewed. Surface echocardiogram completed on January 05 revealed the presence of an ejection fraction of 75%, along with a severely dilated RV and moderate global RV systolic dysfunction. There was evidence of biatrial enlargement with 3+ tricuspid valve insufficiency and a right ventricular systolic pressure estimated to be [address] completed on January 03 again revealed diffuse emphysematous changes with upper lobe predominance. General: Alert, Cooperative, - - Chronically ill and debilitated in appearance HEENT: Atraumatic, PERRLA, Normocephalic Oral: No Gingival or Mucosal Lesions/ Ulcerations Neck: Supple, No Nodes, Trachea Midline Lungs: - - Globally diminished air movement bilaterally without appreciable wheezes, rales or rhonchi. The patient is short of breath with intermittent tachypnea. Cardiovascular: Regular rate, Regular Rhythm, Normal S1, Normal S2, Murmur, - - The patient remains in normal sinus rhythm on telemetry Abdomen: Bowel Sounds Present, Soft, Non Tender, Non-Distended Extremities: Clubbing, Cyanosis - Perioral and nailbed, - - Mild lower extremity edema present Skin: No rashes, No breakdown Musculoskeletal: Cachexia, Muscle Wasting Lymphatic: No Cervical, Supraclavicular, or Inguinal Adenopathy Neurological: Neuro grossly intact Psych/Mental Status: Flat Affect Vital Signs Temp Pulse Resp BP Pulse Ox 98.3 F 78 23 H 106/57 L 89 01/12/18 04:00 01/12/18 06:00 01/12/18 06:00 01/12/18 06:00 01/12/18 06:00 Oxygen Flow Rate (L/min) 10 Oxygen Delivery Method Bi-pap Weight: 167 lb 15.876 oz Body Mass Index (BMI) 23.2 Intake and Output for Last 24 Hours 01/10/18 01/11/18 01/12/18 23:59 23:59 23:59 Intake Total 501 / 501 960 / 960 120 / 120 Output Total 750 / 750 600 / 600 150 / 150 Balance -249 / -249 360 / 360 -30 / -30 Labs (Last 48 Hours) 01/10/18 01/11/18 01/11/18 11:05 04:35 04:35 WBC 9.0 RBC 6.33 H Hgb 12.9 L Hct 41.7 MCV 65.9 L MCH 20.4 L MCHC 30.9 L RDW 21.9 H RDW Differential 49.7 H Plt Count 220 Immature Gran % (Auto) 0.100 Neut % (Auto) 74.1 H Lymph % (Auto) 9.8 L [place] % (Auto) 13.8 H Eos % (Auto) 2.1 Baso % (Auto) 0.1 Absolute Neuts (auto) 6.7 Absolute Lymphs (auto) 0.89 Total Counted Not Reportable Differential Comment SCAN Platelet Estimate ADEQUATE Plt Morphology Comment LARGE Polychromasia 1+ Hypochromasia 1+ Anisocytosis 1+ Sodium 143 Potassium 4.5 Chloride 110 H Carbon Dioxide 24.0 Anion Gap 9 BUN 51 H Creatinine 1.23 Estim Creat Clear Calc 53.58 Est GFR (MDRD) Af Amer 74 Est GFR (MDRD) Non-Af 61 BUN/Creatinine Ratio 41.5 H Glucose 100 Calcium 8.4 L POC Glucose 86 Clinical Impression(s) from Imaging Studies Chest X-Ray 01/03/18 14:01 IMPRESSION: Progressive increased markings at the lung bases worse on the right side with blunting of the right costophrenic angle. This may represent either progressive scarring or superimposed infiltration at the right lung base. Electronically Signed: Donnie Jeffrey MD at 14:43 EDT Tel [phone], Service support , Chest CT 01/03/18 14:49 IMPRESSION: Marked degree of emphysematous changes. Small right pleural effusion with underlying bibasilar atelectasis and/or scarring worse on the left side. Electronically Signed: Donnie Jeffrey MD at 15:45 EDT Tel [phone], Service support , Chest X-Ray 01/11/18 07:01 IMPRESSION: Right greater and left bihilar and bibasal increased interstitial markings most suggestive CHF/fluid overload superimposed upon severe COPD. Superimposed pneumonia, however, cannot be totally excluded without clinical correlation. Right lung base moderate pleural effusion and atelectasis suspected. Recommend follow-up chest exam is clinically indicated for clearing. Electronically Signed: Ted Holden, at 8:46 EDT Tel , Service support , Medical Necessity - Tobacco Use Smoking Status: Former smoker Assessment/Plan RECOMMENDATIONS: 1. Continue amiodarone and beta-jay per cardiology recommendations 2. Continue aerosol treatments 3. Continue Eliquis 4. Continue Opsumit and Tadalafil 5. Encourage p.o. intake 6. Wean oxygen to maintain saturations 85-88%. 7. Following a lengthy discussion with the patient and his family this morning, he is agreeable for transfer to the [facility] for consideration of initiation of prostacyclin therapy. The patient is in need of this transfer, as this therapy is not offered here at this hospital. IMPRESSIONS: 1. Acute on chronic hypoxic respiratory failure Patient with new onset atrial flutter leading to decompensated cor pulmonale. The patient is currently status post MICHELLE cardioversion and remains in normal sinus rhythm. Continue amiodarone and beta-jay, per cardiology recommendations. 2. Known COPD and pulmonary arterial hypertension Patient has been seen by pulmonary hypertension specialist at [facility]. Patient should continue with baseline medications for pulmonary hypertension. Currently on aerosols. At this point, given the patient's lack of clinical improvement with use of Opsumit, would need to consider enrollment in hospice if he is not a candidate for more advanced therapy. This has been discussed with the office of Dr. Bill Tovar at the [facility]. They are willing to accept the patient in transfer, and per my discussion with him this morning, he is agreeable accordingly. Arrangements will be made. 3. Cor pulmonale secondary to severe pulmonary hypertension/new onset atrial flutter Elevated BNP and marginal troponin likely secondary to right heart strain, not left heart strain. Continue current medical management following MICHELLE cardioversion. 4. Allergic rhinitis/postnasal drip syndrome Continue Flonase 2 sprays in each nostril daily. 5. Severe debility/hyperlipidemia/GERD/diabetes Complicates care, management, recovery and prognosis. Patient on sliding scale insulin coverage. Will increase Remeron dose given poor appetite and p.o. intake. 6. Lung nodule Patient does have a history of cancer in the past. He is aware of the lung nodule, but given comorbid factors, biopsy is likely not appropriate and can lead to significant complications. Current perception is that the risk is greater than benefit in patients morbidity and mortality is more closely linked to his severe pulmonary hypertension and emphysema. 7. CODE STATUS: DNR CCA without intubation This note was generated with [employer] dictation software. It may contain incorrect words, spelling, and punctuation that were not noted in checking the note before signing. Code Visit Inpatient E&M: 12624 Subs Hosp L3
--- NOTE | 2018-01-12 06:56 | PN_ITS ---
Subjective: The patient was seen and examined at the bedside this morning. Events from the last 24 hours have been reviewed. There have been no interval changes overnight with the exception of continued hypoxia and high oxygen requirement. The patient did have urinary retention upon removal of his Jovel catheter yesterday, for which a catheter had to be replaced this morning. I did speak with the [facility] pulmonary hypertension team last evening, under the direction of Dr. Bill Tovar, who indicated that they are willing to accept the patient for consideration of initiation of inhaled/IV prostacyclin therapy. The patient and his wanted to wait until this morning to have a discussion before agreeing to the transfer. Attempts were made yesterday to obtain liquid oxygen for the patient. However, his insurance company denied the claim. Pertinent Hx from Outpatient Documentation: If you recall, I initially met the patient in May 2016 when he was admitted to the ICU with acute on chronic respiratory failure and presumed diastolic heart failure with exacerbation. His surface echocardiogram at that time revealed intact systolic function with an RVSP estimated to be 75 mmHg. Pulmonary function testing from July 2015 showed evidence of mild COPD without a significant bronchodilator response. There was a corresponding severe reduction in diffusing capacity noted. The patient did have a VQ scan in July 2015 which showed very low probability for PE. CTA chest from May 2016 did demonstrate hyperinflated lung zaldivar with diffuse emphysematous changes and bibasilar scarring. He does have a history of non- small cell carcinoma. Repeat pulmonary function testing from September 2016 again revealed the presence of a mild irreversible large airways obstructive ventilatory defect with associated hyperinflation and severe reduction in diffusing capacity. It was notable that the patient's PFTs did demonstrate a 20 % reduction in diffusing capacity since that was completed in 2014. He has required 6+ L of supplemental oxygen at his baseline for quite some time. He has had a negative rheumatologic and vasculitis workup. A follow-up PET scan completed in mid November 2016 demonstrated the presence of increased glucose concentration in the right upper posterior hemithorax, which filled criteria for viable neoplasm. However, following a discussion with oncology, the patient was never deemed to be appropriate for any additional workup or treatment, given his tenuous clinical state. The patient was referred to the [facility] for evaluation by Dr. Bill Tovar of the pulmonary hypertension clinic. Due to the presence of progressive respiratory decline, the patient was also initiated on a trilogy noninvasive positive pressure ventilator in his home environment. To date, the patient has been prescribed both Adcirca and OPSUMIT for his underlying pulmonary arterial hypertension. However, he continues to experience progressive clinical decline and profound exertional dyspnea and hypoxia. Objective: The patient's most recent lab work, culture data and imaging studies have all been personally reviewed. Surface echocardiogram completed on January 05 revealed the presence of an ejection fraction of 75%, along with a severely dilated RV and moderate global RV systolic dysfunction. There was evidence of biatrial enlargement with 3+ tricuspid valve insufficiency and a right ventricular systolic pressure estimated to be [address] completed on January 03 again revealed diffuse emphysematous changes with upper lobe predominance. General: Alert, Cooperative, - - Chronically ill and debilitated in appearance HEENT: Atraumatic, PERRLA, Normocephalic Oral: No Gingival or Mucosal Lesions/ Ulcerations Neck: Supple, No Nodes, Trachea Midline Lungs: - - Globally diminished air movement bilaterally without appreciable wheezes, rales or rhonchi. The patient is short of breath with intermittent tachypnea. Cardiovascular: Regular rate, Regular Rhythm, Normal S1, Normal S2, Murmur, - - The patient remains in normal sinus rhythm on telemetry Abdomen: Bowel Sounds Present, Soft, Non Tender, Non-Distended Extremities: Clubbing, Cyanosis - Perioral and nailbed, - - Mild lower extremity edema present Skin: No rashes, No breakdown Musculoskeletal: Cachexia, Muscle Wasting Lymphatic: No Cervical, Supraclavicular, or Inguinal Adenopathy Neurological: Neuro grossly intact Psych/Mental Status: Flat Affect Vital Signs Temp Pulse Resp BP Pulse Ox 98.3 F 78 23 H 106/57 L 89 01/12/18 04:00 01/12/18 06:00 01/12/18 06:00 01/12/18 06:00 01/12/18 06:00 Oxygen Flow Rate (L/min) 10 Oxygen Delivery Method Bi-pap Weight: 167 lb 15.876 oz Body Mass Index (BMI) 23.2 Intake and Output for Last 24 Hours 01/10/18 01/11/18 01/12/18 23:59 23:59 23:59 Intake Total 501 / 501 960 / 960 120 / 120 Output Total 750 / 750 600 / 600 150 / 150 Balance -249 / -249 360 / 360 -30 / -30 Labs (Last 48 Hours) 01/10/18 01/11/18 01/11/18 11:05 04:35 04:35 WBC 9.0 RBC 6.33 H Hgb 12.9 L Hct 41.7 MCV 65.9 L MCH 20.4 L MCHC 30.9 L RDW 21.9 H RDW Differential 49.7 H Plt Count 220 Immature Gran % (Auto) 0.100 Neut % (Auto) 74.1 H Lymph % (Auto) 9.8 L Luce % (Auto) 13.8 H Eos % (Auto) 2.1 Baso % (Auto) 0.1 Absolute Neuts (auto) 6.7 Absolute Lymphs (auto) 0.89 Total Counted Not Reportable Differential Comment SCAN Platelet Estimate ADEQUATE Plt Morphology Comment LARGE Polychromasia 1+ Hypochromasia 1+ Anisocytosis 1+ Sodium 143 Potassium 4.5 Chloride 110 H Carbon Dioxide 24.0 Anion Gap 9 BUN 51 H Creatinine 1.23 Estim Creat Clear Calc 53.58 Est GFR (MDRD) Af Amer 74 Est GFR (MDRD) Non-Af 61 BUN/Creatinine Ratio 41.5 H Glucose 100 Calcium 8.4 L POC Glucose 86 Clinical Impression(s) from Imaging Studies Chest X-Ray 01/03/18 14:01 IMPRESSION: Progressive increased markings at the lung bases worse on the right side with blunting of the right costophrenic angle. This may represent either progressive scarring or superimposed infiltration at the right lung base. Electronically Signed: Donnie Jeffrey MD at 14:43 EDT Tel [phone], Service support , Chest CT 01/03/18 14:49 IMPRESSION: Marked degree of emphysematous changes. Small right pleural effusion with underlying bibasilar atelectasis and/or scarring worse on the left side. Electronically Signed: Donnie Jeffrey MD at 15:45 EDT Tel [phone], Service support , Chest X-Ray 01/11/18 07:01 IMPRESSION: Right greater and left bihilar and bibasal increased interstitial markings most suggestive CHF/fluid overload superimposed upon severe COPD. Superimposed pneumonia, however, cannot be totally excluded without clinical correlation. Right lung base moderate pleural effusion and atelectasis suspected. Recommend follow-up chest exam is clinically indicated for clearing. Electronically Signed: Ted Holden, at 8:46 EDT Tel , Service support , Medical Necessity - Tobacco Use Smoking Status: Former smoker Assessment/Plan RECOMMENDATIONS: 1. Continue amiodarone and beta-jay per cardiology recommendations 2. Continue aerosol treatments 3. Continue Eliquis 4. Continue Opsumit and Tadalafil 5. Encourage p.o. intake 6. Wean oxygen to maintain saturations 85-88%. 7. Following a lengthy discussion with the patient and his family this morning , he is agreeable for transfer to the [facility] for consideration of initiation of prostacyclin therapy. The patient is in need of this transfer , as this therapy is not offered here at this hospital. IMPRESSIONS: 1. Acute on chronic hypoxic respiratory failure Patient with new onset atrial flutter leading to decompensated cor pulmonale. The patient is currently status post MICHELLE cardioversion and remains in normal sinus rhythm. Continue amiodarone and beta-jay, per cardiology recommendations. 2. Known COPD and pulmonary arterial hypertension Patient has been seen by pulmonary hypertension specialist at [facility]. Patient should continue with baseline medications for pulmonary hypertension. Currently on aerosols. At this point, given the patient's lack of clinical improvement with use of Opsumit, would need to consider enrollment in hospice if he is not a candidate for more advanced therapy. This has been discussed with the office of Dr. Bill Tovar at the [facility]. They are willing to accept the patient in transfer, and per my discussion with him this morning, he is agreeable accordingly. Arrangements will be made. 3. Cor pulmonale secondary to severe pulmonary hypertension/new onset atrial flutter Elevated BNP and marginal troponin likely secondary to right heart strain, not left heart strain. Continue current medical management following MICHELLE cardioversion. 4. Allergic rhinitis/postnasal drip syndrome Continue Flonase 2 sprays in each nostril daily. 5. Severe debility/hyperlipidemia/GERD/diabetes Complicates care, management, recovery and prognosis. Patient on sliding scale insulin coverage. Will increase Remeron dose given poor appetite and p.o. intake. 6. Lung nodule Patient does have a history of cancer in the past. He is aware of the lung nodule, but given comorbid factors, biopsy is likely not appropriate and can lead to significant complications. Current perception is that the risk is greater than benefit in patients morbidity and mortality is more closely linked to his severe pulmonary hypertension and emphysema. 7. CODE STATUS: DNR CCA without intubation This note was generated with [employer] dictation software. It may contain incorrect words, spelling, and punctuation that were not noted in checking the note before signing. Code Visit Inpatient E&M: 48062 Subs Hosp L3
[2018-01-12] MEDS: Multivitamins,Ther W-Minerals Tablet 1 TABLET PO (08:23)
[2018-01-12] MEDS: Aspirin 81 MG TAB.CHEW PO (08:23)
[2018-01-12] MEDS: Calcium Carb/Vitamin D 1 TABLET Tablet PO (08:23)
--- NOTE | 2018-01-12 10:11 | CPS ---
pt is on high flow O2 and 100% NRB to keep in higher 80's, low 90's.
[2018-01-12] MEDS: LORazepam 0.5 MG Tablet PO (10:27)
[2018-01-12] MEDS: TADALAFIL 20 MG TABLET 40 MG PO (10:27)
[2018-01-12] MEDS: Glucerna Shake 120 ML LIQUID PO ×4 (10:27→20:48)
[2018-01-12] MEDS: MACITENTAN 10 MG PO (10:27)
[2018-01-12] MEDS: Pantoprazole Sodium 40 MG Tablet PO (10:28)
[2018-01-12] MEDS: Sertraline 50 MG Tablet PO (10:28)
[2018-01-12] MEDS: Senna/Docusate Sodium 1 Tablet PO ×2 (10:28→20:46)
[2018-01-12] MEDS: Amiodarone 200 MG Tablet 400 MG PO ×2 (10:28→20:47)
[2018-01-12] MEDS: CHLORHEXIDINE GLUC 2% CLOTH 1 EACH TOWELETTE TOPICAL (10:31)
[2018-01-12] MEDS: Fluticasone 0.05% 1 SPRAY NASAL.SRY 2 SPRAY NASAL (10:31)
[2018-01-12] MEDS: APIXABAN 5 MG TABLET PO ×2 (10:31→20:46)
[2018-01-12] MEDS: Metoprolol Tartrate 25 MG Tablet PO ×2 (10:32→20:46)
--- NOTE | 2018-01-12 10:55 | CASEMGMT ---
Case management and social work at bedside to discuss options with the patient and his . Patient and are in agreement that they would like to transfer to [facility]. I discussed the process of prior authorization with insurance company and will keep the patient and family informed. Ariane, director of social work, presented information on Hospice services. Patient currently has palliative care. Family states appreciation. I have faxed all clinical information to [facility]. Awaiting prior authorization. CM will follow and update care team as information arises.
--- NOTE | 2018-01-12 11:04 | CASEMGMT ---
Social Work Attended rounds. Pt, , daughter present and second dgt present on speaker phone. Physician presented options of transfer to [facility] for further treatment option vs. home with hospice care. NEEMA placed call to [facility] and explained pt will need liquid O2 at home if they choose to go home with hospice. BARNEY Whitehead at hospice confirmed that they are able to provide liquid 02 and it is a covered service. NEEMA and BARNEY Weiss met with pt and in room. Isela provided information on [facility] option. NEEMA provided information on the hospice program including what the program is and services they provide. Also informed pt and that liquid O2 can be provided by hospice. Questions answered and written information on [facility] provided. Pt choosing to pursue further treatment at [facility]. Pt and family made aware that pt can choose hospice services and contact them for further information. FARZAD Bernard
--- NOTE | 2018-01-12 12:15 | CASEMGMT ---
Prior authorization for transfer to [facility] has been approved. Dr. Carter notified and will update family. Dr. Rodriguez updated to place orders.
--- NOTE | 2018-01-12 15:07 | NURSING ---
pt attempting to shave face at bedside. taking 100% NRB off to shave. spo2 down into the 60's-70's. advised pt to put NRB back on. pt continues to take nrb off. offered to place pt on bipap to help get spo2 back up. pt refusing bipap at this time. states I'm not that short of breath.
--- NOTE | 2018-01-12 18:43 | PN_ITS ---
Subjective: Patient seen and examined in the ICU today, he remains on high flow oxygen, a decision was made by the family and the patient after talking with Dr. Carter today to allow transfer to [facility] for further care for pulmonary hypertension utilizing IV or inhaled prostacyclin. I called to transfer the patient to [facility] and they currently do not have a bed but they did accept the patient for further treatment. - Physical Exam General: Alert, Oriented x3, Cooperative, No apparent distress, Well developed HEENT: Atraumatic, PERRLA, EOMI, Normocephalic Oral: Moist Mucosa Neck: Supple, No JVD, No Nuchal Rigidity, Trachea Midline, Thyroid Normal Size and Texture Lungs: Clear to auscultation, No rhonchi, No wheeze, No rales, Diminished Cardiovascular: Regular rate, Regular Rhythm, Normal S1, Normal S2, No murmurs, No Ectopic Activity, PMI Normal, No rub noted, No Gallop Abdomen: Bowel Sounds Present, Soft, Non Tender, Non-Distended, No hernias noted Extremities: Capillary Refill Less than 3 Seconds Skin: No rashes, No breakdown Musculoskeletal: No Tenderness to Palpation of Joints or Extremities Neurological: Cranial nerves II-XII grossly intact, Neuro grossly intact, Sensory exam intact to light touch and pain, Coordination normal Psych/Mental Status: Normal Affect, Appropriate, Alert and oriented to time, place, person, mood and affect Vital Signs Temp Pulse Resp BP Pulse Ox 98.3 F 72 22 H 97/61 85 01/12/18 16:00 01/12/18 17:00 01/12/18 17:00 01/12/18 17:00 01/12/18 17:00 Oxygen Flow Rate (L/min) 14 Oxygen Delivery Method Non-Rebreather Weight: 76.2 kg Body Mass Index (BMI) 23.2 Intake and Output for Last 24 Hours 01/10/18 01/11/18 01/12/18 23:59 23:59 23:59 Intake Total 501 / 501 960 / 960 640 / 640 Output Total 750 / 750 600 / 600 1250 / 1250 Balance -249 / -249 360 / 360 -610 / -610 Medical Necessity - Tobacco Use Smoking Status: Former smoker Assessment/Plan #1 acute on chronic hypoxic respiratory failure-actual etiology unclear at this point, continue present care in ICU, patient is still on high flow oxygen, pulmonary medicine is participating in his care, his respiratory status remains tenuous at this time, we are awaiting bed confirmation at [facility] so the patient can be transferred as soon as possible. He is a DNR CC arrest #2 chronic obstructive pulmonary disease-continue present care #3 pulmonary hypertension #4 type 2 diabetes #5 cor pulmonale #6 atrial flutter- converted to normal sinus rhythm, cardiology is participating in his care
[2018-01-12] MEDS: Atorvastatin Calcium 20 MG Tablet PO (20:46)
[2018-01-12] MEDS: Mirtazapine 15 MG Tablet PO (20:46)
[2018-01-12] MEDS: MELATONIN 10 MG TABLET PO (20:46)
--- NOTE | 2018-01-12 21:02 | NURSING ---
pulse ox consistently 70's to low 80's. pm medications given early and placed on bipap by respiratory therapist.
--- NOTE | 2018-01-12 22:23 | CPS ---
increased Fio2 to 65% and changed mask size from medium to large.
[2018-01-13] VITALS (20 sets, daily range): BP systolic 82–103; BP diastolic 46–62; PULSE 60–85; RESP 12–26; TEMP 36.8–37.9; O2SAT 81–94
[2018-01-13] MEDS: Ipratropium/Albuterol Sulfate 3 ML AMPUL.NEB INHALATION ×2 (06:35→12:32)
--- NOTE | 2018-01-13 06:42 | PCM.PN.INT ---
Subjective: The patient was seen and examined at the bedside this morning. Events from the last 24 hours have been reviewed. The patient is currently afebrile and hemodynamically stable. Oxygenation remains tenuous at best. There have been no significant changes in the patient's clinical state. He is currently awaiting transfer to the [facility] Pertinent Hx from Outpatient Documentation: If you recall, I initially met the patient in May 2016 when he was admitted to the ICU with acute on chronic respiratory failure and presumed diastolic heart failure with exacerbation. His surface echocardiogram at that time revealed intact systolic function with an RVSP estimated to be 75 mmHg. Pulmonary function testing from July 2015 showed evidence of mild COPD without a significant bronchodilator response. There was a corresponding severe reduction in diffusing capacity noted. The patient did have a VQ scan in July 2015 which showed very low probability for PE. CTA chest from May 2016 did demonstrate hyperinflated lung zaldivar with diffuse emphysematous changes and bibasilar scarring. He does have a history of non-small cell carcinoma. Repeat pulmonary function testing from September 2016 again revealed the presence of a mild irreversible large airways obstructive ventilatory defect with associated hyperinflation and severe reduction in diffusing capacity. It was notable that the patient's PFTs did demonstrate a 20% reduction in diffusing capacity since that was completed in 2014. He has required 6+ L of supplemental oxygen at his baseline for quite some time. He has had a negative rheumatologic and vasculitis workup. A follow-up PET scan completed in mid November 2016 demonstrated the presence of increased glucose concentration in the right upper posterior hemithorax, which filled criteria for viable neoplasm. However, following a discussion with oncology, the patient was never deemed to be appropriate for any additional workup or treatment, given his tenuous clinical state. The patient was referred to the [facility] for evaluation by Dr. Bill Tovar of the pulmonary hypertension clinic. Due to the presence of progressive respiratory decline, the patient was also initiated on a trilogy noninvasive positive pressure ventilator in his home environment. To date, the patient has been prescribed both Adcirca and OPSUMIT for his underlying pulmonary arterial hypertension. However, he continues to experience progressive clinical decline and profound exertional dyspnea and hypoxia. Objective: The patient's most recent lab work, culture data and imaging studies have all been personally reviewed. Surface echocardiogram completed on January 05 revealed the presence of an ejection fraction of 75%, along with a severely dilated RV and moderate global RV systolic dysfunction. There was evidence of biatrial enlargement with 3+ tricuspid valve insufficiency and a right ventricular systolic pressure estimated to be [address] completed on January 03 again revealed diffuse emphysematous changes with upper lobe predominance. General: Alert, Cooperative, - - Family is present at the bedside. The patient appears chronically ill and debilitated in appearance. HEENT: Atraumatic, PERRLA, Normocephalic Oral: No Gingival or Mucosal Lesions/ Ulcerations, Dry Mucosa Neck: Supple, No Nodes, Trachea Midline Lungs: Short of Breath, Tachypneic, - - Globally diminished air movement bilaterally without appreciable wheezes, rales or rhonchi. Cardiovascular: Regular rate, Regular Rhythm, Normal S1, Normal S2, Murmur, - - Remains in normal sinus rhythm Abdomen: Bowel Sounds Present, Soft, Non Tender Extremities: - - Digital clubbing along with mild lower extremity edema is present. There is also perioral and nailbed cyanosis present Skin: No rashes, No breakdown Musculoskeletal: Cachexia, Muscle Wasting Lymphatic: No Cervical, Supraclavicular, or Inguinal Adenopathy Neurological: Neuro grossly intact Psych/Mental Status: Flat Affect, Depressed Vital Signs Temp Pulse Resp BP Pulse Ox 98.2 F 66 23 H 92/57 L 87 01/13/18 04:00 01/13/18 06:00 01/13/18 06:00 01/13/18 06:00 01/13/18 06:00 Oxygen Flow Rate (L/min) 14 Oxygen Delivery Method Bi-pap Weight: 165 lb 9.074 oz Body Mass Index (BMI) 23.2 Intake and Output for Last 24 Hours 01/11/18 01/12/18 01/13/18 23:59 23:59 23:59 Intake Total 960 / 960 640 / 640 120 / 120 Output Total 600 / 600 1250 / 1250 300 / 300 Balance 360 / 360 -610 / -610 -180 / -180 Labs (Last 48 Hours) 01/11/18 04:35 Sodium 143 Potassium 4.5 Chloride 110 H Carbon Dioxide 24.0 Anion Gap 9 BUN 51 H Creatinine 1.23 Estim Creat Clear Calc 53.58 Est GFR (MDRD) Af Amer 74 Est GFR (MDRD) Non-Af 61 BUN/Creatinine Ratio 41.5 H Glucose 100 Calcium 8.4 L Labs (Last 48 Hours) 01/11/18 04:35 Sodium 143 Potassium 4.5 Chloride 110 H Carbon Dioxide 24.0 Anion Gap 9 BUN 51 H Creatinine 1.23 Estim Creat Clear Calc 53.58 Est GFR (MDRD) Af Amer 74 Est GFR (MDRD) Non-Af 61 BUN/Creatinine Ratio 41.5 H Glucose 100 Calcium 8.4 L Clinical Impression(s) from Imaging Studies Chest X-Ray 01/03/18 14:01 IMPRESSION: Progressive increased markings at the lung bases worse on the right side with blunting of the right costophrenic angle. This may represent either progressive scarring or superimposed infiltration at the right lung base. Electronically Signed: Donnie Jeffrey MD at 14:43 EDT Tel [phone], Service support , Chest CT 01/03/18 14:49 IMPRESSION: Marked degree of emphysematous changes. Small right pleural effusion with underlying bibasilar atelectasis and/or scarring worse on the left side. Electronically Signed: Donnie Jeffrey MD at 15:45 EDT Tel [phone], Service support , Chest X-Ray 01/11/18 07:01 IMPRESSION: Right greater and left bihilar and bibasal increased interstitial markings most suggestive CHF/fluid overload superimposed upon severe COPD. Superimposed pneumonia, however, cannot be totally excluded without clinical correlation. Right lung base moderate pleural effusion and atelectasis suspected. Recommend follow-up chest exam is clinically indicated for clearing. Electronically Signed: Ted Holden at 8:46 EDT Tel , Service support , Medical Necessity - Tobacco Use Smoking Status: Former smoker Assessment/Plan RECOMMENDATIONS: 1. Continue amiodarone and beta-jay per cardiology recommendations 2. Continue aerosol treatments. We will add budesonide aerosolized twice daily 3. Continue Eliquis 4. Continue Opsumit and Tadalafil 5. Encourage p.o. intake 6. Wean oxygen to maintain saturations 85-88%. 7. Administer IV Lasix 40 mg ?1 8. Awaiting transfer to the [facility] IMPRESSIONS: 1. Acute on chronic hypoxic respiratory failure Patient presented with new onset atrial flutter leading to decompensated cor pulmonale. The patient is currently status post MICHELLE cardioversion and remains in normal sinus rhythm. Continue amiodarone and beta-jay, per cardiology recommendations. 2. Known COPD and pulmonary arterial hypertension Patient has been seen by pulmonary hypertension specialist at [facility]. Patient should continue with baseline medications for pulmonary hypertension. Currently on aerosols. Budesonide will be added to the aerosol regimen. At this point, given the patient's lack of clinical improvement with use of Opsumit, would need to consider enrollment in hospice if he is not a candidate for more advanced PH therapy. This has been discussed with the office of Dr. Bill Tovar at the [facility] Following discussions with the patient, his family and the pulmonary hypertension team at [facility], the plan is to transfer the patient today. 3. Cor pulmonale secondary to severe pulmonary hypertension/new onset atrial flutter Elevated BNP and marginal troponin likely secondary to right heart strain, not left heart strain. Continue current medical management following MICHELLE cardioversion. Will administer IV Lasix ?1 today. 4. Allergic rhinitis/postnasal drip syndrome Continue Flonase 2 sprays in each nostril daily. 5. Severe debility/hyperlipidemia/GERD/diabetes Complicates care, management, recovery and prognosis. Patient on sliding scale insulin coverage. Remeron dose increased given poor appetite and p.o. intake. 6. Lung nodule Patient does have a history of cancer in the past. He is aware of the lung nodule, but given comorbid factors, biopsy is likely not appropriate and can lead to significant complications. Current perception is that the risk is greater than benefit in patients morbidity and mortality is more closely linked to his severe pulmonary hypertension and emphysema. 7. CODE STATUS: DNR CCA without intubation This note was generated with [employer] dictation software. It may contain incorrect words, spelling, and punctuation that were not noted in checking the note before signing. Code Visit Inpatient E&M: 70867 [facility] Hosp L3
--- NOTE | 2018-01-13 07:36 | PCM.PN.CARD ---
Subjectve: The patient was seen and evaluated. He appears to be doing well and maintaining sinus rhythm still. Objective: Vital Signs Temp Pulse Resp BP Pulse Ox 98.2 F 66 23 H 92/57 L 87 01/13/18 04:00 01/13/18 06:00 01/13/18 06:00 01/13/18 06:00 01/13/18 06:00 Oxygen Flow Rate (L/min) 14 Oxygen Delivery Method Bi-pap Weight: 165 lb 9.074 oz Body Mass Index (BMI) 23.2 Intake and Output for Last 24 Hours 01/11/18 01/12/18 01/13/18 23:59 23:59 23:59 Intake Total 960 / 960 640 / 640 120 / 120 Output Total 600 / 600 1250 / 1250 300 / 300 Balance 360 / 360 -610 / -610 -180 / -180 General: Awake, Alert, Oriented x 3 HEENT: PERRL, EOMI, Sclera Non Icteric Neck: Supple, Good ROM, No Lymph Node Enlargement Lungs: Clear to auscultation Cardiovascular: Regular Rhythm, Normal S1, Normal S2, No Murmurs, No Rubs, No Gallops Vascular: No Carotid Bruits, Normal Femoral Pulses, Normal Radial Pulses, Normal Dorsalis Pedal Pulse, Normal Posterior Tibial Pulses Abdomen: Bowel Sounds Present, Soft, Non Tender, No HSM, No Organomegaly Extremities: No Cyanosis, No Clubbing, No edema Neurological: No Focal Motor or Sensory Deficit Rhythm: EKG: ECHO: Stress Test: Cardiac Cath: PCI: CT Surgery: Holter monitor: EPS: PPM: CXR: Chest CT Scan: Medical Necessity - Tobacco Use Smoking Status: Former smoker Assessment/Plan 1. Atrial flutter: Patient appears to be maintaining normal sinus rhythm. He was be continued on metoprolol but I will reduce the dose to 12.5 mg twice a day due to hypotension. Eliquis 5 mg twice a day Amiodarone 200 mg twice a day for 2 weeks then 200 mg daily. He underwent a transesophageal echocardiogram which demonstrated no evidence of left atrial appendage thrombus. He underwent DC cardioversion and appears to be doing well. His blood pressure is still somewhat marginal. 2. Pulmonary hypertension: Patient appears to have pulmonary hypertension out of proportion to his COPD, and there is some concern the patient may have a PFO or ASD with concomitant left right shunting which may have contributed to the patient's right-sided volume and pressure overload. I am pleased to see that his pulmonary pressures have markedly improved since September 2016 with the administration of Adcirca and OPSUMIT. Thank you for allowing me to participate in the care of your patient. Please don't hesitate to call if any issues arise
[2018-01-13] MEDS: Aspirin 81 MG TAB.CHEW PO (09:14)
[2018-01-13] MEDS: Multivitamins,Ther W-Minerals Tablet 1 TABLET PO (09:14)
[2018-01-13] MEDS: Calcium Carb/Vitamin D 1 TABLET Tablet PO (09:14)
[2018-01-13] MEDS: Amiodarone 200 MG Tablet PO (09:15)
[2018-01-13] MEDS: Metoprolol Tartrate 25 MG Tablet 12.5 MG PO (09:16)
[2018-01-13] MEDS: APIXABAN 5 MG TABLET PO (09:16)
[2018-01-13] MEDS: TADALAFIL 20 MG TABLET 40 MG PO (09:17)
[2018-01-13] MEDS: Pantoprazole Sodium 40 MG Tablet PO (09:17)
[2018-01-13] MEDS: MACITENTAN 10 MG PO (09:17)
[2018-01-13] MEDS: Sertraline 50 MG Tablet PO (09:18)
[2018-01-13] MEDS: Senna/Docusate Sodium 1 Tablet PO (09:18)
[2018-01-13] MEDS: Sodium Chloride 0.65% 1 SPRAY SPRAY.BTL 2 SPRAY NASAL (09:18)
[2018-01-13] MEDS: Fluticasone 0.05% 1 SPRAY NASAL.SRY 2 SPRAY NASAL (09:20)
[2018-01-13] MEDS: LORazepam 0.5 MG Tablet PO (09:25)
[2018-01-13] MEDS: Glucerna Shake 120 ML LIQUID PO (09:25)
--- NOTE | 2018-01-13 10:26 | CASEMGMT ---
Gita, with [employer] insurance, confirmed that continued care at [facility] is approved and mobile ICU transfer will be included in this approval.
--- NOTE | 2018-01-13 11:31 | PCM.PROGNOTE ---
Subjective: Patient was seen and examined today, we are awaiting approval for the patient go to [facility]-they have a bed availability problem but they have accepted the patient for transfer. Patient remains on high flow oxygen at this time. He voices no complaints this examiner, he appears weak and unwell. - Physical Exam General: Alert, Oriented x3, Cooperative, Well developed HEENT: Atraumatic, PERRLA, EOMI, Normocephalic Oral: Moist Mucosa Neck: Supple, No JVD, No Nuchal Rigidity, Trachea Midline, Thyroid Normal Size and Texture Lungs: Clear to auscultation, No rhonchi, No wheeze, No rales, Diminished Cardiovascular: Regular rate, Regular Rhythm, Normal S1, Normal S2, No murmurs, No Ectopic Activity, PMI Normal, No rub noted, No Gallop Abdomen: Bowel Sounds Present, Soft, Non Tender, Non-Distended, No hernias noted Extremities: No clubbing, No cyanosis, No edema, Capillary Refill Less than 3 Seconds Skin: No rashes, No breakdown Musculoskeletal: No Tenderness to Palpation of Joints or Extremities Neurological: Cranial nerves II-XII grossly intact, Neuro grossly intact, Sensory exam intact to light touch and pain Psych/Mental Status: Appropriate, Flat Affect Vital Signs Temp Pulse Resp BP Pulse Ox 100.2 F H 74 23 H 90/59 L 88 01/13/18 07:00 01/13/18 09:16 01/13/18 07:00 01/13/18 07:00 01/13/18 07:00 Oxygen Flow Rate (L/min) 14 Oxygen Delivery Method Non-Rebreather Weight: 75.1 kg Body Mass Index (BMI) 23.2 Intake and Output for Last 24 Hours 01/11/18 01/12/18 01/13/18 23:59 23:59 23:59 Intake Total 960 / 960 640 / 640 120 / 120 Output Total 600 / 600 1250 / 1250 300 / 300 Balance 360 / 360 -610 / -610 -180 / -180 Medical Necessity - Tobacco Use Smoking Status: Former smoker Assessment/Plan #1 acute on chronic hypoxic respiratory failure-actual etiology unclear at this point, most likely this is multifactorial-he has severe COPD and severe pulmonary hypertension, there is probably an element of right-sided heart failure also present. We are awaiting transfer of the patient to [facility], he is a DNR CC arrest, his overall prognosis I feel is very poor, patient wants continued aggressive therapy, however, short of mechanical ventilation. #2 chronic obstructive pulmonary disease-continue present care #3 pulmonary hypertension #4 type 2 diabetes #5 cor pulmonale #6 atrial flutter- converted to normal sinus rhythm, cardiology is participating in his care Code Visit Inpatient E&M: 01519 Subs Hosp L2
[2018-01-13] MEDS: 0.9% NaCl Peripheral Flush Adult/Peds IV (12:50)
[2018-01-13] MEDS: Furosemide 40 MG/4 ML Vial IV (12:50)
--- NOTE | 2018-01-13 18:30 | NURSING ---
Addendum entered by Dale Ling 01/16/18 08:01: LATE ENTRY: Unable to get ground transportation to take pt to [facility]. [facility] was unable to get ground transportation 01/13. [facility] does not provide ground transport to [facility], [facility] does not provide ground transport to [facility]. Also called a Mobile ICU unit from [place], who stated they do not provide units to come up this far. Original Note: Pt transferred to [facility] via [facility] air transport. Did speak w/Kym Woo w/CM. States ok to use air transport.
--- NOTE | 2018-01-14 19:06 | PCM.DC.SUM ---
Discharge Date and Diagnosis Date of Admission: 01/03/18 Date of Discharge: 01/13/18 - Primary Discharge Diagnosis #1 acute on chronic hypoxemic respiratory failure secondary to decompensated cor pulmonale, chronic obstructive pulmonary disease, new onset atrial flutter, and severe pulmonary hypertension #2 new onset atrial flutter-converted to sinus rhythm #3 severe pulmonary hypertension #4 chronic obstructive pulmonary disease #5 severe debility #6 type 2 diabetes #7 GERD - Secondary Discharge Diagnosis Chronic Problems (Last Reviewed 10/18/17 @ 10:07 by Yamilet Reyes) Respiratory failure (Chronic) Currently requiring 6 L of supplemental oxygen at all times, on a noninvasive ventilator for sleep Stage 1 mild COPD by GOLD classification (Chronic) FEV1 91% of predicted Depression (Chronic) Diabetes (Chronic) Lung cancer (Chronic) Pulmonary hypertension (Chronic) PASP greater than 90 mmHg Diastolic heart failure (Chronic) Sleep-related breathing disorder (Chronic) Solitary lung nodule (Chronic) Right ventricular diastolic dysfunction (Chronic) Patent foramen ovale (Chronic) PND (paroxysmal nocturnal dyspnea) (Chronic) Moderate to severe pulmonary hypertension (Chronic) Colon cancer (Chronic) COPD (chronic obstructive pulmonary disease) (Chronic) Hypertension (Chronic) Hospital Course and Treatment Operations: None Procedures: Cardioversion, Transesophageal Echo Summary of Care Provided: The patient is a 77 year old M who was seen in the emergency room at [facility] with chief complaint of shortness of breath., Patient denied any fever, chills, chest pain, cough, or purulent sputum production. Examination the emergency room showed the patient's pulse ox to be 63% on 6 L which is his home O2 setting, patient was placed on BiPAP and a nonrebreather and this was boosted up to 93%. Patient appear to be in moderate respiratory distress, lungs are clear bilaterally. EKG showed a sinus tachycardia at 114 with nonspecific changes, BUN was elevated at 41 and creatinine was 1.5. Lactic acid was 2.7, CBC showed a normal white blood cell count. Patient was given aerosol treatments in the emergency room, he was also given a dose of Solu-Medrol and IV Lasix. Discussions were carried out with the patient and he confirmed that he wanted to be a DNR comfort care arrest and did not want intubation. Pulmonary service was contacted and the hospitalist service was also contacted, patient was admitted to ICU for acute on chronic respiratory failure felt to be multifactorial with severe pulmonary hypertension and COPD. Troponin was intermediate. Aggressive aerosol treatments were continued in ICU along with Lasix administration, BiPAP, systemic corticosteroids, and his home meds were continued. Patient had a tachycardia in the ICU and attempts were made to lower his rate with a beta-jay, it lowered his rate enough to identify that the patient was in atrial flutter with variable conduction. Patient was then seen by cardiology, IV amiodarone was administered, patient was anticoagulated with Lovenox subcu twice a day. Patient was finally taken for a MICHELLE and cardioversion, he was successfully cardioverted and he remained in sinus rhythm afterwards. Patient's overall condition however did not improve during his hospitalization and he remained at times was low blood pressures and low oxygen saturation. Pulmonary medicine had numerous discussions with the patient and his family, the patient still wanted to be aggressive and it was recommended that he be transferred to a tertiary facility such as [facility] for further treatment with IV or inhaled prostacyclin's. [facility] excepted the patient, there was a delay of a day until they were able to have a bed for him. On 01/13/18, patient was seen and examined and felt to be in stable condition for transfer to [facility] for further care. Home Medications: Medications to take at Discharge Albuterol IH (ProAir) [Proair Hfa] 1 - 2 puff INHALATION Q4H PRN PRN 03/04/17 Budesonide/Formoterol Fumarate [Symbicort 160-4.5 Mcg Inhaler] 2 puff IH BID 03/04/17 Calcium Carbonate/Vitamin D3 [Calcium 600-Vit D3 800 Tab] 1 ea PO DAILY 03/04/17 Cinnamon Bark [Cinnamon] 500 mg PO BID 03/04/17 Furosemide [Lasix] 20 mg PO DAILY 03/04/17 Ipratropium/Albuterol Sulfate [Duoneb] 3 ml INHALATION Q6HWA.RT 03/04/17 Lisinopril [Zestril] 5 mg PO DAILY 03/04/17 Multivit-Min/FA/Lycopen/Lutein [Centrum Silver Men Tablet] 1 ea PO DAILY 03/04/17 Mv-Min/FA/Vit K/Lycop/Lut/Zeax [Ocuvite Eye Plus Multi Tablet] 1 ea PO DAILY 03/04/17 Omeprazole [Prilosec] 40 mg PO DAILY 03/04/17 Sertraline HCl [Zoloft] 50 mg PO DAILY 03/04/17 Simvastatin [Zocor] 40 mg PO QHS 03/04/17 Sodium Chloride 0.65% [[place] Nasal [place]] 2 spray NASAL BID PRN PRN #0 spray.btl 03/07/17 albuterol sulfate 2.5 mg/3 mL (0.083 %) solution for nebulization 2.5 mg INHALATION Q4H PRN #180 ml 09/28/17 macitentan 10 mg tablet 10 mg PO DAILY 10/18/17 Aspirin [Aspirin, Baby] 81 mg PO DAILY@0800 01/03/18 Fluticasone 0.05% [Flonase Nasal [place]] 2 spray INTRANASAL DAILY 01/03/18 Guaifenesin [Mucinex] 1,200 mg PO BID PRN PRN 01/03/18 Lorazepam [Ativan] 0.5 mg PO DAILY 01/03/18 Melatonin/Pyridoxine HCl (B6) [Melatonin 10 mg Tablet] 1 each PO QHS 01/03/18 Mirtazapine [Mirtazapine] 7.5 mg PO QHS 01/03/18 Tadalafil [Adcirca] 40 mg PO DAILY 01/03/18 Tiotropium [place] [Spiriva] 1 cap INHALATION DAILY 01/03/18 Primary Care Physician: Sameer Couch III, MD [Primary Care Provider] - Disposition: Acute care Hospital Minutes spent on discharge:: 36 Patient Condition:: Stable Medical Necessity - Tobacco Use Smoking Status: Former smoker Meaningful Use Info Meaningful Use Diagnoses (Choose all that apply): None applicable Code Visit Inpatient E&M: 12489 Disch Hosp
--- NOTE | 2018-01-14 19:16 | DS.PCM_ITS ---
Discharge Date and Diagnosis Date of Admission: 01/03/18 Date of Discharge: 01/13/18 - Primary Discharge Diagnosis #1 acute on chronic hypoxemic respiratory failure secondary to decompensated cor pulmonale, chronic obstructive pulmonary disease, new onset atrial flutter, and severe pulmonary hypertension #2 new onset atrial flutter-converted to sinus rhythm #3 severe pulmonary hypertension #4 chronic obstructive pulmonary disease #5 severe debility #6 type 2 diabetes #7 GERD - Secondary Discharge Diagnosis Chronic Problems (Last Reviewed 10/18/17 @ 10:07 by Yamilet Reyes) Respiratory failure (Chronic) Currently requiring 6 L of supplemental oxygen at all times, on a noninvasive ventilator for sleep Stage 1 mild COPD by GOLD classification (Chronic) FEV1 91% of predicted Depression (Chronic) Diabetes (Chronic) Lung cancer (Chronic) Pulmonary hypertension (Chronic) PASP greater than 90 mmHg Diastolic heart failure (Chronic) Sleep-related breathing disorder (Chronic) Solitary lung nodule (Chronic) Right ventricular diastolic dysfunction (Chronic) Patent foramen ovale (Chronic) PND (paroxysmal nocturnal dyspnea) (Chronic) Moderate to severe pulmonary hypertension (Chronic) Colon cancer (Chronic) COPD (chronic obstructive pulmonary disease) (Chronic) Hypertension (Chronic) Hospital Course and Treatment Operations: None Procedures: Cardioversion, Transesophageal Echo Summary of Care Provided: The patient is a 77 year old M who was seen in the emergency room at [facility] with chief complaint of shortness of breath., Patient denied any fever, chills, chest pain, cough, or purulent sputum production. Examination the emergency room showed the patient's pulse ox to be 63% on 6 L which is his home O2 setting, patient was placed on BiPAP and a nonrebreather and this was boosted up to 93%. Patient appear to be in moderate respiratory distress, lungs are clear bilaterally. EKG showed a sinus tachycardia at 114 with nonspecific changes, BUN was elevated at 41 and creatinine was 1.5. Lactic acid was 2.7, CBC showed a normal white blood cell count. Patient was given aerosol treatments in the emergency room, he was also given a dose of Solu -Medrol and IV Lasix. Discussions were carried out with the patient and he confirmed that he wanted to be a DNR comfort care arrest and did not want intubation. Pulmonary service was contacted and the hospitalist service was also contacted, patient was admitted to ICU for acute on chronic respiratory failure felt to be multifactorial with severe pulmonary hypertension and COPD. Troponin was intermediate. Aggressive aerosol treatments were continued in ICU along with Lasix administration, BiPAP, systemic corticosteroids, and his home meds were continued. Patient had a tachycardia in the ICU and attempts were made to lower his rate with a beta-jay, it lowered his rate enough to identify that the patient was in atrial flutter with variable conduction. Patient was then seen by cardiology, IV amiodarone was administered, patient was anticoagulated with Lovenox subcu twice a day. Patient was finally taken for a MICHELLE and cardioversion, he was successfully cardioverted and he remained in sinus rhythm afterwards. Patient's overall condition however did not improve during his hospitalization and he remained at times was low blood pressures and low oxygen saturation. Pulmonary medicine had numerous discussions with the patient and his family, the patient still wanted to be aggressive and it was recommended that he be transferred to a tertiary facility such as [facility] for further treatment with IV or inhaled prostacyclin's. [facility] excepted the patient, there was a delay of a day until they were able to have a bed for him. On 01/13/18, patient was seen and examined and felt to be in stable condition for transfer to [facility] for further care. Home Medications: Medications to take at Discharge Albuterol IH (ProAir) [Proair Hfa] 1 - 2 puff INHALATION Q4H PRN PRN 03/04/17 Budesonide/Formoterol Fumarate [Symbicort 160-4.5 Mcg Inhaler] 2 puff IH BID Calcium Carbonate/Vitamin D3 [Calcium 600-Vit D3 800 Tab] 1 ea PO DAILY Cinnamon Bark [Cinnamon] 500 mg PO BID 03/04/17 Furosemide [Lasix] 20 mg PO DAILY 03/04/17 Ipratropium/Albuterol Sulfate [Duoneb] 3 ml INHALATION Q6HWA.RT 03/04/17 Lisinopril [Zestril] 5 mg PO DAILY 03/04/17 Multivit-Min/FA/Lycopen/Lutein [Centrum Silver Men Tablet] 1 ea PO DAILY Mv-Min/FA/Vit K/Lycop/Lut/Zeax [Ocuvite Eye Plus Multi Tablet] 1 ea PO DAILY Omeprazole [Prilosec] 40 mg PO DAILY 03/04/17 Sertraline HCl [Zoloft] 50 mg PO DAILY 03/04/17 Simvastatin [Zocor] 40 mg PO QHS 03/04/17 Sodium Chloride 0.65% [[place] Nasal [place]] 2 spray NASAL BID PRN PRN #0 spray.btl 03/07/17 albuterol sulfate 2.5 mg/3 mL (0.083 %) solution for nebulization 2.5 mg INHALATION Q4H PRN #180 ml 09/28/17 macitentan 10 mg tablet 10 mg PO DAILY 10/18/17 Aspirin [Aspirin, Baby] 81 mg PO DAILY@0800 01/03/18 Fluticasone 0.05% [Flonase Nasal [place]] 2 spray INTRANASAL DAILY 01/03/18 Guaifenesin [Mucinex] 1,200 mg PO BID PRN PRN 01/03/18 Lorazepam [Ativan] 0.5 mg PO DAILY 01/03/18 Melatonin/Pyridoxine HCl (B6) [Melatonin 10 mg Tablet] 1 each PO QHS 01/03/18 Mirtazapine [Mirtazapine] 7.5 mg PO QHS 01/03/18 Tadalafil [Adcirca] 40 mg PO DAILY 01/03/18 Tiotropium [place] [Spiriva] 1 cap INHALATION DAILY 01/03/18 Primary Care Physician: Sameer Couch III, MD [Primary Care Provider] - Disposition: Acute care Hospital Minutes spent on discharge:: 36 Patient Condition:: Stable Medical Necessity - Tobacco Use Smoking Status: Former smoker Meaningful Use Info Meaningful Use Diagnoses (Choose all that apply): None applicable Code Visit Inpatient E&M: 98424 Disch Hosp
== END 2018-01-13 18:25 | disposition short-term general hospital (02) | DRG 189 ==
LOC: ED 13:55 → ICU 17:07
PROVIDERS: Internal Medicine Critical Care Medicine; Admitting Provider Internal Medicine; Emergency Provider Emergency Medicine; Family Provider Family Medicine; PCP Family Medicine; Visit Provider Internal Medicine
DX: J96.21 Acute and chronic respiratory failure with hypoxia (principal); I48.92 Unspecified atrial flutter; J44.1 Chronic obstructive pulmonary disease with (acute) exacerbation; I50.32 Chronic diastolic (congestive) heart failure; Q21.1 Atrial septal defect; I27.81 Cor pulmonale (chronic); Z99.81 Dependence on supplemental oxygen; Z66 Do not resuscitate; E11.9 Type 2 diabetes mellitus without complications; K21.9 Gastro-esophageal reflux disease without esophagitis; F32.9 Major depressive disorder, single episode, unspecified; J30.9 Allergic rhinitis, unspecified; R91.1 Solitary pulmonary nodule; Z87.891 Personal history of nicotine dependence; I27.29 Other secondary pulmonary hypertension; Z85.118 Personal history of other malignant neoplasm of bronchus and lung; I11.0 Hypertensive heart disease with heart failure
CPT/HCPCS: 36600; 51702; 71045; 71250; 80048; 81001; 82274; 82803; 82962; 83605; 83735; 83880; 84100; 84484; 85025; 87641; 92960; 93005; 93306; 93312; 93320; 93325; 94002; 94003; 94640; 97116; 97162; 97166; 97530; 97802; 99284; J7040; P9047; A4216; J1940